=== PATIENT | male | born 1950 | race American Indian/Alaskan Native ===

== ENCOUNTER 2020-08-04 21:35 | Inpatient (IN) | payer MEDICARE ==
--- NOTE | 2020-08-04 21:47 | Emergency Department Report ---
ED Neuro Deficit HPI - General Stated Complaint: POSS STROKE Time Seen by Provider: 08/04/20 21:38 Source: family, EMS Mode of arrival: Carried (Peds) Limitations: Altered Mental Status - History of Present Illness Initial Comments: Chief complaint: Possible stroke HPI: This is a 70-year-old male with history of hypertension and pancreatic cancer who presents with right-sided paralysis and mute aphasia. Family members called 911 for wellness check. Family member had not heard from patient since last night. Police officers gained entry into the home. Patient was discovered on the floor. EMS arrived. Patient was discovered with severe aphasia and right- sided hemiparesis. No previous history of stroke according to family members report to EMS. Patient is unable to give history due to severe aphasia. Patient is mute. 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 -: unknown (Last known normal over 24 hours ago yesterday evening) Location: speech, right arm, right leg Presenting Symptoms: Present: Weak/Paralyzed One Side Place: home Severity: severe Improves With: none Worsens With: none On Anticoagulants: No Context: sudden onset, other (Yesterday) Associated Symptoms: other (Aphasia right-sided hemiparesis) Treatments Prior to Arrival: other (EMS transport) - Related Data Allergies/Adverse Reactions: Allergies Allergy/AdvReac Type Severity Reaction Status Date / Time Unable to Assess Allergy Unverified 08/04/20 21:50 ED Review of Systems ROS: Stated complaint: POSS STROKE Other details as noted in HPI Comment: Unobtainable due to pts medical conditions (Severe aphasia) ED Past Medical Hx - Past Medical History Previous Medical History?: Yes Hx Hypertension: Yes Additional medical history: Pancreatic cancer - Surgical History Additional Surgical History: Unable to obtain - Family History Family history: other (Unable to obtain) - Social History Smoking Status: Unknown if ever smoked Substance Use Type: Other (Unable to obtain) ED Neuro Physical Exam - General Limitations: Language Barrier, Altered Mental Status General appearance: alert, in no apparent distress, other (Patient will track with eyes. Purposeful movement with left upper extremity) Suspected Stroke: Yes - Head Head exam: Present: atraumatic, normocephalic - Eye Eye exam: Present: normal appearance - ENT ENT exam: Present: mucous membranes moist - Neck Neck exam: Present: normal inspection, full ROM - Respiratory Respiratory exam: Present: normal lung sounds bilaterally. Absent: respiratory distress, wheezes, rales, rhonchi - Cardiovascular Cardiovascular Exam: Present: regular rate, normal rhythm, normal heart sounds. Absent: systolic murmur, diastolic murmur, rubs, gallop - GI/Abdominal GI/Abdominal exam: Present: soft, normal bowel sounds. Absent: distended, tenderness, guarding, rebound - Rectal Rectal exam: Present: deferred - Extremities Exam Extremities exam: Present: pedal edema, other (No deformity) - Neurological Exam Neurological exam: Present: alert, other (Mute aphasia) - NIHSS Assessment Interval: Baseline 1a. Level of Consciousness: alert/keenly responsive 1b. LOC Questions: aphasic 1c. LOC Commands: performs no tasks correctly 2. Best Gaze: normal 3. Visual: no visual loss 4. Facial Palsy: partial paralysis 5b. Motor Arm Right: some gravity effort 5a. Motor Arm Left: no drift 6a. Motor Leg Left: no drift 6b. Motor Leg Right: no gravity effort 7. Limb Ataxia: absent 8. Sensory: severe/total sensory loss 9. Best Language: severe aphasia 10. Dysarthria: mute/anarrthric 11. Extinction/Inattention: profound inattention Total Score: 19 Stroke Severity: Moderate to Severe Stroke - Psychiatric Psychiatric exam: Present: normal affect, normal mood - Skin Skin exam: Present: warm, dry, intact, normal color. Absent: rash ED Course Vital Signs 08/04/20 08/04/20 08/04/20 21:40 21:45 22:01 Temperature 98.4 F Pulse Rate 83 78 86 Respiratory 21 21 20 Rate Blood Pressure 216/97 202/99 Blood Pressure 218/102 [Left] O2 Sat by Pulse 96 99 99 Oximetry 08/04/20 08/04/20 08/04/20 22:15 22:32 22:45 Temperature Pulse Rate 84 91 H Respiratory 17 17 21 Rate Blood Pressure 185/106 202/99 185/95 Blood Pressure [Left] O2 Sat by Pulse 99 98 Oximetry 08/04/20 22:46 Temperature Pulse Rate 76 Respiratory Rate Blood Pressure 185/95 Blood Pressure [Left] O2 Sat by Pulse Oximetry - Lab Data Result diagrams: 08/04/20 21:54 08/04/20 21:54 Lab Results 08/04/20 08/04/20 08/04/20 Range/Units 21:54 21:54 21:54 WBC 10.3 (4.5-11.0) K/mm3 RBC 4.39 (3.65-5.03) M/mm3 Hgb 12.7 (11.8-15.2) gm/dl Hct 37.1 (35.5-45.6) % MCV 85 (84-94) fl MCH 29 (28-32) pg MCHC 34 (32-34) % RDW 14.4 (13.2-15.2) % Plt Count 326 (140-440) K/mm3 Lymph % (Auto) 16.8 (13.4-35.0) % [place] % (Auto) 7.5 H (0.0-7.3) % Eos % (Auto) 0.1 (0.0-4.3) % Baso % (Auto) 0.5 (0.0-1.8) % Lymph # (Auto) 1.7 (1.2-5.4) K/mm3 [place] # (Auto) 0.8 (0.0-0.8) K/mm3 Eos # (Auto) 0.0 (0.0-0.4) K/mm3 Baso # (Auto) 0.1 (0.0-0.1) K/mm3 Seg Neutrophils % 75.1 H (40.0-70.0) % Seg Neutrophils # 7.7 (1.8-7.7) K/mm3 PT 14.5 (12.2-14.9) Sec. INR 1.15 H (0.87-1.13) APTT 26.1 (24.2-36.6) Sec. Sodium (137-145) mmol/L Potassium (3.6-5.0) mmol/L Chloride (98-107) mmol/L Carbon Dioxide (22-30) mmol/L Anion Gap mmol/L BUN (9-20) mg/dL Creatinine (0.8-1.3) mg/dL Estimated GFR ml/min BUN/Creatinine Ratio % Glucose (75-100) mg/dL Calcium (8.4-10.2) mg/dL Total Bilirubin (0.1-1.2) mg/dL AST (5-40) units/L ALT (7-56) units/L Alkaline Phosphatase (35-129) units/L Troponin T < 0.010 (0.00-0.029) ng/mL Total Protein (6.3-8.2) g/dL Albumin (3.9-5) g/dL Albumin/Globulin Ratio % Urine Color (Yellow) Urine Turbidity (Clear) Urine pH (5.0-7.0) Ur Specific [place] (1.003-1.030) Urine Protein (Negative) mg/dL Urine Glucose (UA) (Negative) mg/dL Urine Ketones (Negative) mg/dL Urine Blood (Negative) Urine Nitrite (Negative) Urine Bilirubin (Negative) Urine Urobilinogen (<2.0) mg/dL Ur Leukocyte Esterase (Negative) Urine WBC (Auto) (0.0-6.0) /HPF Urine RBC (Auto) (0.0-6.0) /HPF U Epithel Cells (Auto) (0-13.0) /HPF Urine Mucus /HPF Urine Opiates Screen Urine Methadone Screen Ur Barbiturates Screen Ur Phencyclidine Scrn Ur Amphetamines Screen U Benzodiazepines Scrn Urine Cocaine Screen U Marijuana (THC) Screen Drugs of Abuse Note Plasma/Serum Alcohol (0-0.07) % 08/04/20 08/04/20 08/04/20 Range/Units 21:54 21:54 21:59 WBC (4.5-11.0) K/mm3 RBC (3.65-5.03) M/mm3 Hgb (11.8-15.2) gm/dl Hct (35.5-45.6) % MCV (84-94) fl MCH (28-32) pg MCHC (32-34) % RDW (13.2-15.2) % Plt Count (140-440) K/mm3 Lymph % (Auto) (13.4-35.0) % [place] % (Auto) (0.0-7.3) % Eos % (Auto) (0.0-4.3) % Baso % (Auto) (0.0-1.8) % Lymph # (Auto) (1.2-5.4) K/mm3 [place] # (Auto) (0.0-0.8) K/mm3 Eos # (Auto) (0.0-0.4) K/mm3 Baso # (Auto) (0.0-0.1) K/mm3 Seg Neutrophils % (40.0-70.0) % Seg Neutrophils # (1.8-7.7) K/mm3 PT (12.2-14.9) Sec. INR (0.87-1.13) APTT (24.2-36.6) Sec. Sodium 140 (137-145) mmol/L Potassium 3.4 L (3.6-5.0) mmol/L Chloride 106.0 (98-107) mmol/L Carbon Dioxide 21 L (22-30) mmol/L Anion Gap 16 mmol/L BUN 11 (9-20) mg/dL Creatinine 0.7 L (0.8-1.3) mg/dL Estimated GFR > 60 ml/min BUN/Creatinine Ratio 16 % Glucose 123 H (75-100) mg/dL Calcium 9.2 (8.4-10.2) mg/dL Total Bilirubin 0.20 (0.1-1.2) mg/dL AST 15 (5-40) units/L ALT 11 (7-56) units/L Alkaline Phosphatase 95 (35-129) units/L Troponin T (0.00-0.029) ng/mL Total Protein 6.9 (6.3-8.2) g/dL Albumin 4.5 (3.9-5) g/dL Albumin/Globulin Ratio 1.9 % Urine Color Yellow (Yellow) Urine Turbidity Slightly-cloudy (Clear) Urine pH 7.0 (5.0-7.0) Ur Specific [place] 1.015 (1.003-1.030) Urine Protein <15 mg/dl (Negative) mg/dL Urine Glucose (UA) 150 (Negative) mg/dL Urine Ketones Tr (Negative) mg/dL Urine Blood Sm (Negative) Urine Nitrite Neg (Negative) Urine Bilirubin Neg (Negative) Urine Urobilinogen < 2.0 (<2.0) mg/dL Ur Leukocyte Esterase Neg (Negative) Urine WBC (Auto) 1.0 (0.0-6.0) /HPF Urine RBC (Auto) 3.0 (0.0-6.0) /HPF U Epithel Cells (Auto) < 1.0 (0-13.0) /HPF Urine Mucus Few /HPF Urine Opiates Screen Urine Methadone Screen Ur Barbiturates Screen Ur Phencyclidine Scrn Ur Amphetamines Screen U Benzodiazepines Scrn Urine Cocaine Screen U Marijuana (THC) Screen Drugs of Abuse Note Plasma/Serum Alcohol < 0.01 (0-0.07) % 08/04/20 Range/Units 21:59 WBC (4.5-11.0) K/mm3 RBC (3.65-5.03) M/mm3 Hgb (11.8-15.2) gm/dl Hct (35.5-45.6) % MCV (84-94) fl MCH (28-32) pg MCHC (32-34) % RDW (13.2-15.2) % Plt Count (140-440) K/mm3 Lymph % (Auto) (13.4-35.0) % [place] % (Auto) (0.0-7.3) % Eos % (Auto) (0.0-4.3) % Baso % (Auto) (0.0-1.8) % Lymph # (Auto) (1.2-5.4) K/mm3 [place] # (Auto) (0.0-0.8) K/mm3 Eos # (Auto) (0.0-0.4) K/mm3 Baso # (Auto) (0.0-0.1) K/mm3 Seg Neutrophils % (40.0-70.0) % Seg Neutrophils # (1.8-7.7) K/mm3 PT (12.2-14.9) Sec. INR (0.87-1.13) APTT (24.2-36.6) Sec. Sodium (137-145) mmol/L Potassium (3.6-5.0) mmol/L Chloride (98-107) mmol/L Carbon Dioxide (22-30) mmol/L Anion Gap mmol/L BUN (9-20) mg/dL Creatinine (0.8-1.3) mg/dL Estimated GFR ml/min BUN/Creatinine Ratio % Glucose (75-100) mg/dL Calcium (8.4-10.2) mg/dL Total Bilirubin (0.1-1.2) mg/dL AST (5-40) units/L ALT (7-56) units/L Alkaline Phosphatase (35-129) units/L Troponin T (0.00-0.029) ng/mL Total Protein (6.3-8.2) g/dL Albumin (3.9-5) g/dL Albumin/Globulin Ratio % Urine Color (Yellow) Urine Turbidity (Clear) Urine pH (5.0-7.0) Ur Specific [place] (1.003-1.030) Urine Protein (Negative) mg/dL Urine Glucose (UA) (Negative) mg/dL Urine Ketones (Negative) mg/dL Urine Blood (Negative) Urine Nitrite (Negative) Urine Bilirubin (Negative) Urine Urobilinogen (<2.0) mg/dL Ur Leukocyte Esterase (Negative) Urine WBC (Auto) (0.0-6.0) /HPF Urine RBC (Auto) (0.0-6.0) /HPF U Epithel Cells (Auto) (0-13.0) /HPF Urine Mucus /HPF Urine Opiates Screen Negative Urine Methadone Screen Negative Ur Barbiturates Screen Negative Ur Phencyclidine Scrn Negative Ur Amphetamines Screen Negative U Benzodiazepines Scrn Negative Urine Cocaine Screen Negative U Marijuana (THC) Screen Negative Drugs of Abuse Note Disclamer Plasma/Serum Alcohol (0-0.07) % - EKG Data -: EKG Interpreted by In EKG shows normal: sinus rhythm, axis Rate: normal Interpretation: LVH 08/04/20 21:48 EKG obtained 2140 EKG interpreted by ma Rate 85 bpm normal axis prolonged QTC no ST elevation nonspecific T wave pattern positive LVH nonischemic T wave pattern - Radiology Data [facility] FLA[facility]ITA MO[facility] Gender: Male Date of : 1950 Referring Provider: ALYSON AVILES Organization: [facility] Accession Number: [id number] Requested Date: August 04, 2020 21:40 Report Status: Final Requested Procedure: 1 Procedure Description: CT head/brain wo con Modality: CT Findings Reporting MD: Myles Parr Dictation Time: August 04, 2020 21:44 Criminal Investigator: Not available Circuit Design Engineer Date: CT HEAD WITHOUT CONTRAST INDICATION: stroke symptoms TECHNIQUE: All CT scans at this location are performed using CT dose reduction for ALARA by means of automated exposure control. COMPARISON: None available. FINDINGS: BRAIN: No hemorrhage or mass effect are seen. Moderate white matter microvascular changes are seen, particularly on the left. Focal probably old lacunar infarct is seen in the anterior limb of the right internal capsule. Decreased density is seen in the external capsule on the left stenting superiorly into the white matter of unclear chronicity. A small area of white matter and cortical hypodensity is noted in the left cerebrum in the posterior temporal region which appears represent a small cortical infarction of unclear age. This is not definitely chronic and no porencephaly is seen. Adjacent lateral ventricle is not dilated. No significant local mass effect is seen. An area of porencephaly in the anterior left temporal lobe appears old and probably is related to ischemia. ORBITS: Normal as visualized. SOFT TISSUES OF HEAD: Normal. CALVARIUM: Normal. VISUALIZED PARANASAL SINUSES AND MASTOID AIR CELLS: Rounded mucous retention cyst versus polyp is seen in the right maxillary sinus. Other sinuses are clear. No air-fluid levels are seen. ADDITIONAL FINDINGS: None. IMPRESSION: Moderate ischemic type changes are seen bilaterally but are worse on the left. This includes some age indeterminate areas both in the deep left brain and mildly in the left posterior temporal cortex which could include acute or subacute areas of infarction. No hemorrhage or mass effect are seen at MR may be useful. Signer Name: Myles Parr MD Signed: 08/04/2020 9:44 PM Workstation Name: [id number] Patient Name: FLAQUITA MOORE Gender: Male Date of : 1950 Referring Provider: ALYSON AVILES Organization: [facility] Accession Number: [id number] Requested Date: August 04, 2020 21:38 Report Status: Final Requested Procedure: 1 Procedure Description: XR chest 1V ap Modality: XR Findings Reporting MD: Arnoldo Coon Dictation Time: August 04, 2020 21:01 Criminal Investigator: Not available Circuit Design Engineer Date: CHEST 1 VIEW 08/04/2020 8:57 PM INDICATION / CLINICAL INFORMATION: Possible aspiration new stroke. COMPARISON: None available. FINDINGS: SUPPORT DEVICES: None. HEART / MEDIASTINUM: No significant abnormality. LUNGS / PLEURA: No significant pulmonary or pleural abnormality. No pneumothorax. ADDITIONAL FINDINGS: No significant additional findings. IMPRESSION: 1. No acute findings. Signer Name: Arnoldo Coon MD Signed: 08/04/2020 9:01 PM Workstation Name: [id number] - Medical Decision Making Acute CVA unknown last known well greater than 24 hours since family members were able to contact patient per phone. Police officers required to gain entry into home. CT head without contrast reveals subacute ischemic changes kiki aterally. I have reviewed labs obtained all within normal limits with exception of mild hypokalemia. Hypertensive emergency: 1 dose of IV labetalol decreased systolic blood pressure to 185 mm Hg. - Thrombolytic Inclusion/Exclusion Thrombolytic Exclusion Criteria: Onset of Symptoms Unknown, Symptom Onset > 3 Hours Critical Care Time: Yes Critical care time in (mins) excluding proc time.: 40 Critical care attestation.: If time is entered above; I have spent that time in minutes in the direct care of this critically ill patient, excluding procedure time. 40 minutes of critical care time excluding procedures were used in the care of the patient. I listen to EMS report prior to arrival in order to determine if patient required emergent teleneurologist. I came immediately to the bedside upon patient's arrival. I obtained history from EMS at the bedside. I discussed treatment plan with the nursing team members. I reviewed electronic record. I kept the family members informed. Patient required multiple interventions and reassessments. ED Disposition Clinical Impression: Acute CVA (cerebrovascular accident), Hypertensive emergency Disposition: DC-09 OP ADMIT IP TO THIS HOSP Is pt being admited?: Yes Does the pt Need Aspirin: No Condition: Fair Instructions: Hypertension (ED)
--- NOTE | 2020-08-04 22:06 | XRay Report ---
CHEST 1 VIEW 08/04/2020 8:57 PM INDICATION / CLINICAL INFORMATION: Possible aspiration new stroke. COMPARISON: None available. FINDINGS: SUPPORT DEVICES: None. HEART / MEDIASTINUM: No significant abnormality. LUNGS / PLEURA: No significant pulmonary or pleural abnormality. No pneumothorax. ADDITIONAL FINDINGS: No significant additional findings. IMPRESSION: 1. No acute findings. Signer Name: Arnoldo Coon MD Signed: 08/04/2020 10:01 PM Workstation Name: [id number]
[2020-08-04 22:11] LABS: Basophils # (Auto) 0.1 K/mm3 (0.0-0.1); Basophils % (Auto) 0.5 % (0.0-1.8); Eosinophils % (Auto) 0.1 % (0.0-4.3); Hematocrit 37.1 % (35.5-45.6); Hemoglobin 12.7 gm/dl (11.8-15.2); Lymphocytes # (Auto) 1.7 K/mm3 (1.2-5.4); Lymphocytes % (Auto) 16.8 % (13.4-35.0); Mean Corpuscular HGB Conc 34 % (32-34); Mean Corpuscular Volume 85 fl (84-94); Monocytes # (Auto) 0.8 K/mm3 (0.0-0.8); Monocytes % (Auto) 7.5 % (0.0-7.3); Platelet Count 326 K/mm3 (140-440); Red Blood Count 4.39 M/mm3 (3.65-5.03); Red Cell Distribution Width 14.4 % (13.2-15.2)
[2020-08-04 22:14] LABS: Bilirubin,Urine NEG (Negative); Blood,Urine SM (Negative); Color,Urine Yellow (Yellow); Mucus,Urine FEW /HPF; Protein,Urine <15 mg/dL mg/dL (Negative); Urobilinogen,Urine < 2.0 mg/dL (<2.0)
[2020-08-04 22:21] LABS: Amphetamine Screen,Urine Negative; Benzodiazepines Screen,Urine Negative; Cannabinoid Screen,Urine Negative; Cocaine Screen,Urine Negative; Methadone Screen,Urine Negative; Opiate Screen,Urine Negative
[2020-08-04 22:23] LABS: INR 1.15 (0.87-1.13); Partial Thromboplastin Time 26.1 Sec. (24.2-36.6)
[2020-08-04 22:26] LABS: Alanine Aminotransferase 11 units/L (7-56); Albumin 4.5 g/dL (3.9-5); Blood Urea Nitrogen 11 mg/dL (9-20); Calcium 9.2 mg/dL (8.4-10.2); Hemolysis Index 1
[2020-08-04 22:30] LABS: BUN/Creatinine Ratio 16
[2020-08-04] MEDS ORDERED: ASPIRIN 600 MG RECT SUPP PR ONE (22:34)
--- NOTE | 2020-08-04 22:48 | Cat Scan Report ---
CT HEAD WITHOUT CONTRAST INDICATION: stroke symptoms TECHNIQUE: All CT scans at this location are performed using CT dose reduction for ALARA by means of automated exposure control. COMPARISON: None available. FINDINGS: BRAIN: No hemorrhage or mass effect are seen. Moderate white matter microvascular changes are seen, p articularly on the left. Focal probably old lacunar infarct is seen in the anterior limb of the right internal capsule. Decreased density is seen in the external capsule on the left stenting superiorly into the white matter of unclear chronicity. A small area of white matter and cortical hypodensity is noted in the left cerebrum in the posterior temporal region which appears represent a small cortical infarction of unclear age. This is not definitely chronic and no porencephaly is seen. Adjacent late ral ventricle is not dilated. No significant local mass effect is seen. An area of porencephaly in th e anterior left temporal lobe appears old and probably is related to ischemia. ORBITS: Normal as visualized. SOFT TISSUES OF HEAD: Normal. CALVARIUM: Normal. VISUALIZED PARANASAL SINUSES AND MASTOID AIR CELLS: Rounded mucous retention cyst versus polyp is see n in the right maxillary sinus. Other sinuses are clear. No air-fluid levels are seen. ADDITIONAL FINDINGS: None. IMPRESSION: Moderate ischemic type changes are seen bilaterally but are worse on the left. This inclu adrien some age indeterminate areas both in the deep left brain and mildly in the left posterior tempora l cortex which could include acute or subacute areas of infarction. No hemorrhage or mass effect are seen at MR may be useful. Signer Name: Myles Parr MD Signed: 08/04/2020 10:44 PM Workstation Name: [id number]
[2020-08-04] MEDS ORDERED: ALBUTEROL 2.5 MG/3 ML NEBU IH PRN (23:45)
[2020-08-04] MEDS ORDERED: ONDANSETRON 4 MG/2 ML INJ IV PRN (23:45)
--- NOTE | 2020-08-04 23:54 | History and Physical Report ---
History of Present Illness Date of examination: 08/04/20 Date of admission: 08/04/20 23:17 Chief complaint: Stroke Aphasia History of present illness: 70-year-old male with past medical history of hypertension and pancreatic cancer who presents with right-sided paralysis and mute aphasia. Family members called 911 for wellness check. Family member had not heard from patient since last night. Police officers gained entry into the home. Patient was discovered on the floor. EMS arrived. Patient was discovered with severe aphasia and right-sided hemiparesis. No previous history of stroke according to family members report to EMS. Patient is unable to give history due to severe aphasia. Patient is mute. Consulting Intern reports normal blood glucos In the emergency room CT scan of the head showed moderate ischemic type changes are seen bilaterally better worse on the left these include some age indeterminate areas in the deep left brain and mildly on the left posterior temporal cortex which could include acute or subacute areas of infarction. No hemorrhage or mass-effect are seen at MR may be useful Past History Past Medical History: hypertension, other (Pancreatic cancer) Medications and Allergies Allergies Allergy/AdvReac Type Severity Reaction Status Date / Time Unable to Assess Allergy Unverified 08/04/20 21:50 Review of Systems Neurological: paralysis, weakness, aphasia Exam - Constitutional Vitals: Temp Pulse Resp BP Pulse Ox 98.4 F 80 20 186/89 99 08/04/20 21:40 08/04/20 23:31 08/04/20 23:31 08/04/20 23:31 08/04/20 23:31 General appearance: Present: no acute distress, well-nourished - EENT Eyes: Present: PERRL ENT: hearing intact, clear oral mucosa - Neck Neck: Present: supple, normal ROM - Respiratory Respiratory effort: normal Respiratory: bilateral: CTA - Cardiovascular Heart Sounds: Present: S1 & S2. Absent: rub, click - Extremities Extremities: pulses symmetrical, No edema Peripheral Pulses: within normal limits - Abdominal General gastrointestinal: Present: soft, non-tender, non-distended, normal bowel sounds Male genitourinary: Present: normal - Integumentary Integumentary: Present: clear, warm, dry - Musculoskeletal Musculoskeletal: gait normal, strength equal bilaterally - Neurologic Neurologic: CNII-XII intact, other (Patient is alert but patient has aphasia and right-sided paralysis) HEART Score - HEART Score Troponin: Troponin T < 0.010 ng/mL (0.00-0.029) 08/04/20 21:54 Results - Labs CBC & Chem 7: 08/04/20 21:54 08/04/20 21:54 Labs: Laboratory Last Values WBC 10.3 K/mm3 (4.5-11.0) 08/04/20 21:54 RBC 4.39 M/mm3 (3.65-5.03) 08/04/20 21:54 Hgb 12.7 gm/dl (11.8-15.2) 08/04/20 21:54 Hct 37.1 % (35.5-45.6) 08/04/20 21:54 MCV 85 fl (84-94) 08/04/20 21:54 MCH 29 pg (28-32) 08/04/20 21:54 MCHC 34 % (32-34) 08/04/20 21:54 RDW 14.4 % (13.2-15.2) 08/04/20 21:54 Plt Count 326 K/mm3 (140-440) 08/04/20 21:54 Lymph % (Auto) 16.8 % (13.4-35.0) 08/04/20 21:54 [place] % (Auto) 7.5 % (0.0-7.3) H 08/04/20 21:54 Eos % (Auto) 0.1 % (0.0-4.3) 08/04/20 21:54 Baso % (Auto) 0.5 % (0.0-1.8) 08/04/20 21:54 Lymph # (Auto) 1.7 K/mm3 (1.2-5.4) 08/04/20 21:54 [place] # (Auto) 0.8 K/mm3 (0.0-0.8) 08/04/20 21:54 Eos # (Auto) 0.0 K/mm3 (0.0-0.4) 08/04/20 21:54 Baso # (Auto) 0.1 K/mm3 (0.0-0.1) 08/04/20 21:54 Seg Neutrophils % 75.1 % (40.0-70.0) H 08/04/20 21:54 Seg Neutrophils # 7.7 K/mm3 (1.8-7.7) 08/04/20 21:54 PT 14.5 Sec. (12.2-14.9) 08/04/20 21:54 INR 1.15 (0.87-1.13) H 08/04/20 21:54 APTT 26.1 Sec. (24.2-36.6) 08/04/20 21:54 Sodium 140 mmol/L (137-145) 08/04/20 21:54 Potassium 3.4 mmol/L (3.6-5.0) L 08/04/20 21:54 Chloride 106.0 mmol/L (98-107) 08/04/20 21:54 Carbon Dioxide 21 mmol/L (22-30) L 08/04/20 21:54 Anion Gap 16 mmol/L 08/04/20 21:54 BUN 11 mg/dL (9-20) 08/04/20 21:54 Creatinine 0.7 mg/dL (0.8-1.3) L 08/04/20 21:54 Estimated GFR > 60 ml/min 08/04/20 21:54 BUN/Creatinine Ratio 16 % 08/04/20 21:54 Glucose 123 mg/dL (75-100) H 08/04/20 21:54 Calcium 9.2 mg/dL (8.4-10.2) 08/04/20 21:54 Total Bilirubin 0.20 mg/dL (0.1-1.2) 08/04/20 21:54 AST 15 units/L (5-40) 08/04/20 21:54 ALT 11 units/L (7-56) 08/04/20 21:54 Alkaline Phosphatase 95 units/L (35-129) 08/04/20 21:54 Troponin T < 0.010 ng/mL (0.00-0.029) 08/04/20 21:54 Total Protein 6.9 g/dL (6.3-8.2) 08/04/20 21:54 Albumin 4.5 g/dL (3.9-5) 08/04/20 21:54 Albumin/Globulin Ratio 1.9 % 08/04/20 21:54 Urine Color Yellow (Yellow) 08/04/20 21:59 Urine Turbidity Slightly-cloudy (Clear) 08/04/20 21:59 Urine pH 7.0 (5.0-7.0) 08/04/20 21:59 Ur Specific [place] 1.015 (1.003-1.030) 08/04/20 21:59 Urine Protein <15 mg/dl mg/dL (Negative) 08/04/20 21:59 Urine Glucose (UA) 150 mg/dL (Negative) 08/04/20 21:59 Urine Ketones Tr mg/dL (Negative) 08/04/20 21:59 Urine Blood Sm (Negative) 08/04/20 21:59 Urine Nitrite Neg (Negative) 08/04/20 21:59 Urine Bilirubin Neg (Negative) 08/04/20 21:59 Urine Urobilinogen < 2.0 mg/dL (<2.0) 08/04/20 21:59 Ur Leukocyte Esterase Neg (Negative) 08/04/20 21:59 Urine WBC (Auto) 1.0 /HPF (0.0-6.0) 08/04/20 21:59 Urine RBC (Auto) 3.0 /HPF (0.0-6.0) 08/04/20 21:59 U Epithel Cells (Auto) < 1.0 /HPF (0-13.0) 08/04/20 21:59 Urine Mucus Few /HPF 08/04/20 21:59 Urine Opiates Screen Negative 08/04/20 21:59 Urine Methadone Screen Negative 08/04/20 21:59 Ur Barbiturates Screen Negative 08/04/20 21:59 Ur Phencyclidine Scrn Negative 08/04/20 21:59 Ur Amphetamines Screen Negative 08/04/20 21:59 U Benzodiazepines Scrn Negative 08/04/20 21:59 Urine Cocaine Screen Negative 08/04/20 21:59 U Marijuana (THC) Screen Negative 08/04/20 21:59 Drugs of Abuse Note Disclamer 08/04/20 21:59 Plasma/Serum Alcohol < 0.01 % (0-0.07) 08/04/20 21:54 - Imaging and Cardiology Chest x-ray: report reviewed CT Scan - head: report reviewed Assessment and Plan VTE prophylaxis?: Chemical Plan of care discussed with patient/family: Yes - Patient Problems (1) Acute CVA (cerebrovascular accident) Current Visit: Yes Status: Acute Plan to address problem: Admit the patient to the medical telemetry. Put the patient on CVA pathway. Aspirin 325 mg p.o. daily. Lipitor 40 mg p.o. daily. MRI of the brain with and without contrast. MRI of the brain and neck. Echocardiogram. PT OT and speech evaluation. Neurology consult (2) Hypertensive emergency Current Visit: Yes Status: Acute Plan to address problem: Hydralazine 10 mg IV every 6 hours as needed. Labetalol 20 mg IV x1 dose. We will monitor the blood pressure closely (3) Pancreatic cancer Current Visit: Yes Status: Acute Plan to address problem: Stable. Patient will follow up with oncology as outpatient (4) DVT prophylaxis Current Visit: Yes Status: Acute Plan to address problem: SCD for DVT prophylaxis. Pepcid 20 mg p.o. twice daily for GI prophylaxis. Patient is a full code
[2020-08-05] MEDS: hydrALAZINE 20 MG/1 ML INJ IV PRN ×2 (00:09→17:21)
[2020-08-05] MEDS: IPRATROPIUM/ALBUTEROL SULFATE 3 ML AMPUL.NEB IH SCH ×4 (03:36→19:56)
[2020-08-05] MEDS: D5W/0.9% NACL 1,000 ML IV SCH (04:10)
[2020-08-05] MEDS ORDERED: HEPARIN 5,000 UNIT/1 ML VIAL SUB-Q SCH (06:00)
[2020-08-05 06:22] LABS: Basophils % (Auto) 0.4 % (0.0-1.8); Eosinophils % (Auto) 0.3 % (0.0-4.3); Hematocrit 38.1 % (35.5-45.6); Hemoglobin 12.3 gm/dl (11.8-15.2); Lymphocytes # (Auto) 1.8 K/mm3 (1.2-5.4); Lymphocytes % (Auto) 18.4 % (13.4-35.0); Mean Corpuscular HGB Conc 32 % (32-34); Mean Corpuscular Volume 84 fl (84-94); Monocytes # (Auto) 0.7 K/mm3 (0.0-0.8); Monocytes % (Auto) 7.4 % (0.0-7.3); Platelet Count 338 K/mm3 (140-440); Red Blood Count 4.52 M/mm3 (3.65-5.03); Red Cell Distribution Width 14.1 % (13.2-15.2)
[2020-08-05 06:39] LABS: Blood Urea Nitrogen 12 mg/dL (9-20); Calcium 9.1 mg/dL (8.4-10.2); Chol/HDL Ratio 5.38 %; HDL Cholesterol 47 mg/dL (40-59); Hemolysis Index 1; LDL Cholesterol,Direct 190 mg/dL (50-130)
[2020-08-05 06:41] LABS: BUN/Creatinine Ratio 17
[2020-08-05] MEDS ORDERED: ASPIRIN 325 MG TAB PO SCH (10:00)
--- NOTE | 2020-08-05 10:42 | Electrocardiograph Report ---
[facility] Test Date: 2020-08-04 Test Time: 21:41:30 Pat Name: FLAQUITA MOORE Department: Room: A484 1 Gender: M Community Health Director: THADDEUS : 1950 Requested By: ALYSON AVILES Order Number: [id number] Reading MD: Noe Storm Measurements Intervals Arnold Rate: 85 P: 75 MA: 184 QRS: 55 QRSD: 89 T: 56 QT: 456 QTc: 522 Interpretive Statements Sinus rhythm Paired ectopic premature complexes Consider left ventricular hypertrophy Prolonged QT interval No previous ECG available for comparison Electronically Signed On 08-05-2020 10:42:17 EDT by Noe Storm
--- NOTE | 2020-08-05 11:08 | Progress Note ---
Assessment and Plan Assessment and plan: #Acute CVA Aspirin 325mg daily Stat[place] Echocardiogram ordered MRI brain ordered Will get CTA head and neck Neurology consulted PT/OT Speech eval #Hypertension Given CVA, will maintain permissive HTN for now Usee BP medications only for SBP>220 or DBP >110 #Pancreatic cancer Stable. Patient will follow up with oncology as outpatient #DVT ppx SCD for DVT prophylaxis. Pepcid 20 mg p.o. twice daily for GI prophylaxis. Patient is a full code History Interval history: 70-year-old male with past medical history of hypertension and pancreatic cancer who presents with right-sided paralysis and mute aphasia. Family members called 911 for wellness check. Family member had not heard from patient since last night. Police officers gained entry into the home. Patient was discovered on the floor. EMS arrived. Patient was discovered with severe aphasia and right-sided hemiparesis. No previous history of stroke according to family members report to EMS. Patient is unable to give history due to severe aphasia. Patient is mute. 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 No hemorrhage or mass-effect are seen at MR may be useful Hospital course 08/05. He has aphasia. Has right UE weakness. Neurology consulted. MRI brain cannot be performed as there is no family available. Will get a repeat CT head instead. Echocardiogram pending. US carotid doppler also ordered. Hospitalist Physical - Physical exam Narrative exam: VITAL SIGNS: Reviewed. GENERAL: Awake HEAD: No signs of head trauma. EYES: Pupils are equal. Extraocular motions intact. MOUTH: Oropharynx is normal. NECK: No adenopathy, no JVD. CHEST: Chest with diminished breath sounds bilaterally. No wheezes, rales, or rhonchi. CARDIAC: normal S1 and S2, without murmurs, gallops, or rubs. ABDOMEN: Soft, non tender and non distended. No rebound or guarding, and no masses palpated. Bowel Sounds normal. MUSCULOSKELETAL: No edema NEUROLOGIC EXAM: Alert but has aphasia. +RUE >RLE weakness. SKIN: No obvious lesions - Constitutional Vitals: Temp Pulse Resp BP Pulse Ox 97.7 F 87 18 128/78 94 08/05/20 08:59 08/05/20 08:59 08/05/20 08:59 08/05/20 08:59 08/05/20 08:59 HEART Score - HEART Score Troponin: Troponin T < 0.010 ng/mL (0.00-0.029) 08/04/20 21:54 Results - Labs CBC & Chem 7: 08/05/20 05:23 08/05/20 05:23 Labs: Laboratory Last Values WBC 10.0 K/mm3 (4.5-11.0) 08/05/20 05:23 RBC 4.52 M/mm3 (3.65-5.03) 08/05/20 05:23 Hgb 12.3 gm/dl (11.8-15.2) 08/05/20 05:23 Hct 38.1 % (35.5-45.6) 08/05/20 05:23 MCV 84 fl (84-94) 08/05/20 05:23 MCH 27 pg (28-32) L 08/05/20 05:23 MCHC 32 % (32-34) 08/05/20 05:23 RDW 14.1 % (13.2-15.2) 08/05/20 05:23 Plt Count 338 K/mm3 (140-440) 08/05/20 05:23 Lymph % (Auto) 18.4 % (13.4-35.0) 08/05/20 05:23 [place] % (Auto) 7.4 % (0.0-7.3) H 08/05/20 05:23 Eos % (Auto) 0.3 % (0.0-4.3) 08/05/20 05:23 Baso % (Auto) 0.4 % (0.0-1.8) 08/05/20 05:23 Lymph # (Auto) 1.8 K/mm3 (1.2-5.4) 08/05/20 05:23 [place] # (Auto) 0.7 K/mm3 (0.0-0.8) 08/05/20 05:23 Eos # (Auto) 0.0 K/mm3 (0.0-0.4) 08/05/20 05:23 Baso # (Auto) 0.0 K/mm3 (0.0-0.1) 08/05/20 05:23 Seg Neutrophils % 73.5 % (40.0-70.0) H 08/05/20 05:23 Seg Neutrophils # 7.4 K/mm3 (1.8-7.7) 08/05/20 05:23 PT 14.5 Sec. (12.2-14.9) 08/04/20 21:54 INR 1.15 (0.87-1.13) H 08/04/20 21:54 APTT 26.1 Sec. (24.2-36.6) 08/04/20 21:54 Sodium 141 mmol/L (137-145) 08/05/20 05:23 Potassium 3.1 mmol/L (3.6-5.0) L 08/05/20 05:23 Chloride 106.0 mmol/L (98-107) 08/05/20 05:23 Carbon Dioxide 22 mmol/L (22-30) 08/05/20 05:23 Anion Gap 16 mmol/L 08/05/20 05:23 BUN 12 mg/dL (9-20) 08/05/20 05:23 Creatinine 0.7 mg/dL (0.8-1.3) L 08/05/20 05:23 Estimated GFR > 60 ml/min 08/05/20 05:23 BUN/Creatinine Ratio 17 % 08/05/20 05:23 Glucose 121 mg/dL (75-100) H 08/05/20 05:23 Calcium 9.1 mg/dL (8.4-10.2) 08/05/20 05:23 Total Bilirubin 0.20 mg/dL (0.1-1.2) 08/04/20 21:54 AST 15 units/L (5-40) 08/04/20 21:54 ALT 11 units/L (7-56) 08/04/20 21:54 Alkaline Phosphatase 95 units/L (35-129) 08/04/20 21:54 Troponin T < 0.010 ng/mL (0.00-0.029) 08/04/20 21:54 Total Protein 6.9 g/dL (6.3-8.2) 08/04/20 21:54 Albumin 4.5 g/dL (3.9-5) 08/04/20 21:54 Albumin/Globulin Ratio 1.9 % 08/04/20 21:54 Triglycerides 102 mg/dL (2-149) 08/05/20 05:23 Cholesterol 253 mg/dL (50-199) H 08/05/20 05:23 LDL Cholesterol Direct 190 mg/dL (50-130) H 08/05/20 05:23 HDL Cholesterol 47 mg/dL (40-59) 08/05/20 05:23 Cholesterol/HDL Ratio 5.38 % 08/05/20 05:23 Urine Color Yellow (Yellow) 08/04/20 21:59 Urine Turbidity Slightly-cloudy (Clear) 08/04/20 21:59 Urine pH 7.0 (5.0-7.0) 08/04/20 21:59 Ur Specific [place] 1.015 (1.003-1.030) 08/04/20 21:59 Urine Protein <15 mg/dl mg/dL (Negative) 08/04/20 21:59 Urine Glucose (UA) 150 mg/dL (Negative) 08/04/20 21:59 Urine Ketones Tr mg/dL (Negative) 08/04/20 21:59 Urine Blood Sm (Negative) 08/04/20 21:59 Urine Nitrite Neg (Negative) 08/04/20 21:59 Urine Bilirubin Neg (Negative) 08/04/20 21:59 Urine Urobilinogen < 2.0 mg/dL (<2.0) 08/04/20 21:59 Ur Leukocyte Esterase Neg (Negative) 08/04/20 21:59 Urine WBC (Auto) 1.0 /HPF (0.0-6.0) 08/04/20 21:59 Urine RBC (Auto) 3.0 /HPF (0.0-6.0) 08/04/20 21:59 U Epithel Cells (Auto) < 1.0 /HPF (0-13.0) 08/04/20 21:59 Urine Mucus Few /HPF 08/04/20 21:59 Urine Opiates Screen Negative 08/04/20 21:59 Urine Methadone Screen Negative 08/04/20 21:59 Ur Barbiturates Screen Negative 08/04/20 21:59 Ur Phencyclidine Scrn Negative 08/04/20 21:59 Ur Amphetamines Screen Negative 08/04/20 21:59 U Benzodiazepines Scrn Negative 08/04/20 21:59 Urine Cocaine Screen Negative 08/04/20 21:59 U Marijuana (THC) Screen Negative 08/04/20 21:59 Drugs of Abuse Note Disclamer 08/04/20 21:59 Plasma/Serum Alcohol < 0.01 % (0-0.07) 08/04/20 21:54 Amaya/IV: Voiding Method Incontinent Active Medications - Current Medications Current Medications: Generic Name Dose Route Start Last Admin Trade Name Freq PRN Reason Stop Dose Admin Acetaminophen 650 mg 08/04/20 23:45 Acetaminophen 325 Mg Tab PO Q4H PRN Pain MILD(1-3)/Fever >100.5/SILVER Albuterol 2.5 mg 08/04/20 23:45 Albuterol 2.5 Mg/3 Ml Nebu IH Q4HRT PRN Shortness Of Breath Albuterol/Ipratropium 1 ampul 08/05/20 02:00 08/05/20 10:50 Ipratropium/Albuterol Sulfate 3 Ml Ampul.Neb IH Not Given Q6HRT JACOB Aspirin 325 mg 08/05/20 10:00 08/05/20 10:44 Aspirin 325 Mg Tab PO Not Given QDAY JACOB Atorvastatin Calcium 80 mg 08/05/20 22:00 Atorvastatin 40 Mg Tab PO QHS JACOB Famotidine 20 mg 08/05/20 10:00 Famotidine 20 Mg/2 Ml Inj IV BID JACOB Hydralazine HCl 10 mg 08/04/20 23:49 08/05/20 00:09 Hydralazine 20 Mg/1 Ml Inj IV 10 mg Q6H PRN Administration SBP > 220 or DBP >110 Dextrose/Sodium Chloride 1,000 mls @ 60 mls/hr 08/04/20 23:45 08/05/20 04:10 D5ns IV 75 mls/hr DIRECT JACOB Administration Ondansetron HCl 4 mg 08/04/20 23:45 Ondansetron 4 Mg/2 Ml Inj IV Q8H PRN Nausea And Vomiting Sodium Chloride 10 ml 08/05/20 10:00 08/05/20 10:45 Sodium Chloride 0.9% 10 Ml Flush Syringe IV Not Given BID JACOB Sodium Chloride 10 ml 08/04/20 23:45 Sodium Chloride 0.9% 10 Ml Flush Syringe IV PRN PRN LINE FLUSH
--- NOTE | 2020-08-05 11:19 | Cat Scan Report ---
CT HEAD WITHOUT CONTRAST INDICATION / CLINICAL INFORMATION: CVA. TECHNIQUE: All CT scans at this location are performed using CT dose reduction for ALARA by means of automated e xposure control. COMPARISON: Head CT 08/04/2020 FINDINGS: HEMORRHAGE: No evidence of intracranial hemorrhage or extra-axial fluid collection. EXTRA-AXIAL SPACES: There is focal dilatation of the left sylvian fissure and subarachnoid space in t he left middle cranial fossa secondary to remote brain injury. Cortical sulci and sylvian fissures ar e enlarged reflecting a degree of parenchymal volume loss which is within normal limits for the patie nt's age of 70 years. Basilar cisterns have an unremarkable appearance. VENTRICULAR SYSTEM: Mild, ex vacuo, dilatation of the temporal horn of the left lateral ventricle is observed. The third and lateral ventricles have an otherwise unremarkable appearance. CEREBRAL PARENCHYMA: Regions of decreased attenuation in the anterior and lateral aspect of the left temporal lobe and left insular and subinsular regions likely reflect the sequelae of remote left MCA infarction. An additional area of decreased brain parenchymal attenuation is observed along lateral a spect of the left parietal lobe where a more recent infarction may be present. Correlation with magne tic resonance imaging of the brain is suggested to better date this abnormality. There is evidence of remote small deep infarction in the right gangliocapsular region. Additionally noted is moderate per iventricular and deep white matter lucency compatible with microvascular ischemic change. MIDLINE SHIFT OR HERNIATION: There is no mass effect. CEREBELLUM / BRAINSTEM: Brainstem has an unremarkable appearance. Age related cerebellar atrophy is n oted. MIDLINE STRUCTURES:Pituitary gland has an unremarkable appearance. No abnormalities are seen in the p ineal region. INTRACRANIAL VESSELS:Calcified atherosclerotic plaque is present along the course of the cavernous se gments of both internal carotid arteries. ORBITS: visualized portions of the orbits have an unremarkable appearance. SOFT TISSUES of HEAD: No significant abnormality. CALVARIUM: Evaluation of bone windows reveals no abnormalities. PARANASAL SINUSES / MASTOID AIR CELLS: Paranasal sinuses are free from inflammatory mucosal disease. Mastoid air cells are normally pneumatized. IMPRESSION: 1. Findings are consistent with remote left MCA infarction involving left temporal lobe and insula an d subinsular regions. 2. An additional area of decreased brain parenchymal attenuation is seen along the lateral convexity of the left parietal lobe or a more recent left MCA infarction may be present. Correlation with magne tic resonance imaging is suggested to better date the suspected left parietal infarction. Signer Name: Amando Pressley MD Signed: 08/05/2020 11:14 AM Workstation Name: [id number]
[2020-08-05] MEDS: FAMOTIDINE 20 MG/2 ML INJ IV SCH ×2 (12:01→22:38)
[2020-08-05] MEDS ORDERED: SODIUM CHLORIDE 0.9% 500 ML 500 ML ONE (14:47)
[2020-08-05] MEDS: POTASSIUM CHLORIDE 10 MEQ 10 MEQ/100 ML BAG IV SCH ×3 (16:02→18:07)
[2020-08-05] MEDS: ASPIRIN 300 MG RECT SUPP PR SCH (22:37)
[2020-08-06] MEDS: IPRATROPIUM/ALBUTEROL SULFATE 3 ML AMPUL.NEB IH SCH ×4 (02:57→20:00)
[2020-08-06] MEDS: POTASSIUM CHLORIDE 10 MEQ 10 MEQ/100 ML BAG IV SCH ×4 (07:38→16:25)
--- NOTE | 2020-08-06 09:12 | Consultation ---
History of Present Illness Consult date: 08/06/20 Reason for Consult: aphasia History of present illness: Stroke Aphasia History of present illness: 70-year-old male with past medical history of hypertension and pancreatic cancer who presents with right-sided paralysis and mute aphasia. Family members called 911 for wellness check. Family member had not heard from patient since last night. Police officers gained entry into the home. Patient was found on the floor. Patient is unable to give history due to severe aphasia. Patient is mute. In the emergency room CT scan of the head showed moderate ischemic type changes in the deep left brain and mildly on the left posterior temporal cortex which could include acute or subacute areas of infarction. No hemorrhage or mass- effect are seen at MR may be useful Past History Past Medical History: hypertension, other (Pancreatic cancer) Medications and Allergies Allergies Allergy/AdvReac Type Severity Reaction Status Date / Time Unable to Assess Allergy Unverified 08/04/20 21:50 Review of Systems Neurological: paralysis, weakness, aphasia Past History Past Medical History: hypertension, other (Pancreatic cancer) Medications and Allergies Allergies Allergy/AdvReac Type Severity Reaction Status Date / Time No Known Allergies Allergy Verified 08/05/20 15:39 Active Meds: Active Medications Acetaminophen (Acetaminophen 325 Mg Tab) 650 mg PO Q4H PRN PRN Reason: Pain MILD(1-3)/Fever >100.5/SILVER Albuterol (Albuterol 2.5 Mg/3 Ml Nebu) 2.5 mg IH Q4HRT PRN PRN Reason: Shortness Of Breath Albuterol/Ipratropium (Ipratropium/Albuterol Sulfate 3 Ml Ampul.Neb) 1 ampul IH Q6HRT [facility] Last Admin: 08/06/20 02:57 Dose: 1 ampul Documented by: Aspirin (Aspirin 300 Mg Rect Supp) 300 mg GA QDAY [facility] Last Admin: 08/05/20 22:37 Dose: 300 mg Documented by: Atorvastatin Calcium (Atorvastatin 40 Mg Tab) 80 mg PO QHS [facility] Last Admin: 08/05/20 22:38 Dose: Not Given Documented by: Famotidine (Famotidine 20 Mg/2 Ml Inj) 20 mg IV BID [facility] Last Admin: 08/05/20 22:38 Dose: 20 mg Documented by: Hydralazine HCl (Hydralazine 20 Mg/1 Ml Inj) 10 mg IV Q6H PRN PRN Reason: SBP > 220 or DBP >110 Last Admin: 08/05/20 17:21 Dose: 10 mg Documented by: Dextrose/Sodium Chloride (D5ns) 1,000 mls @ 60 mls/hr IV DIRECT [facility] Last Admin: 08/05/20 04:10 Dose: 75 mls/hr Documented by: Ondansetron HCl (Ondansetron 4 Mg/2 Ml Inj) 4 mg IV Q8H PRN PRN Reason: Nausea And Vomiting Sodium Chloride (Sodium Chloride 0.9% 10 Ml Flush Syringe) 10 ml IV BID [facility] Last Admin: 08/05/20 22:43 Dose: 10 ml Documented by: Sodium Chloride (Sodium Chloride 0.9% 10 Ml Flush Syringe) 10 ml IV PRN PRN PRN Reason: LINE FLUSH Physical Examination - Vital Signs Vital Signs: Vital Signs Temp Pulse Resp BP Pulse Ox 98.4 F 83 21 218/102 96 08/04/20 21:40 08/04/20 21:40 08/04/20 21:40 08/04/20 21:40 08/04/20 21:40 - Constitutional General appearance: other (Alert follow simple command ) - EENT EENT: Present: PERRL, mucous membranes moist - Respiratory Respiratory: Present: lungs clear, rhonchi - Cardiovascular Cardiovascular: Present: regular rate, normal S1, normal S2 Extremities: Present: no peripheral edema bilatateraly - Gastrointestinal Gastrointestinal: Present: normoactive bowel sounds - Integumentary Integumentary: Present: normal - Neurologic Cranial nerve examination: PERRL, EOMI, other (facial droop right side , pt, is aphasic with no clear speech out put comprehension is limited .) Speech examination: global aphasia Sensorimotor examination: intact Detailed motor examination: other (right hemiplegia upper 1-2/5 right lower 4-/5 , sensory crossly intact , unable to do gait) Results - Laboratory Findings CBC and BMP: 08/05/20 05:23 08/05/20 05:23 Abnormal Lab Findings: Abnormal Labs 08/04/20 08/04/20 08/04/20 21:54 21:54 21:54 MCH [place] % (Auto) 7.5 H Seg Neutrophils % 75.1 H INR 1.15 H Potassium 3.4 L Carbon Dioxide 21 L Creatinine 0.7 L Glucose 123 H Cholesterol LDL Cholesterol Direct 08/05/20 08/05/20 05:23 05:23 MCH 27 L [place] % (Auto) 7.4 H Seg Neutrophils % 73.5 H INR Potassium 3.1 L Carbon Dioxide Creatinine 0.7 L Glucose 121 H Cholesterol 253 H LDL Cholesterol Direct 190 H Assessment and Plan Assessment and Plan VTE prophylaxis?: Chemical - Patient Problems # Acute CVA (cerebrovascular accident) - pt. is with new onset right side weakness and possibly global aphasia -Admit the patient to the medical telemetry. - Put the patient on CVA pathway. - Aspirin 325 mg p.o. daily. - Lipitor 40 mg p.o. daily. - MRI of the brain with and without contrast is remarkable for larg left MCA infarct with involvment of parietal and temporal region , no shift . - Echocardiogram. #55-60 EF no thrombus - PT OT and speech evaluation. - CTA brain and neck are pending -LDL#[id number] +++ swallow evaluation +++ Pt and speech therapy -Cardiac monitoring # Hypertensive emergency -Hydralazine 10 mg IV every 6 hours as needed. Labetalol 20 mg IV x1 dose. We will monitor the blood pressure closely # Pancreatic cancer -Stable. Patient will follow up with oncology as outpatient - Hypercoagulable state can not be excluded (4) DVT prophylaxis SCD for DVT prophylaxis. Pepcid 20 mg p.o. twice daily for GI prophylaxis. Patient is a full code will follow
[2020-08-06] MEDS: ASPIRIN 300 MG RECT SUPP PR SCH (09:40)
[2020-08-06] MEDS: FAMOTIDINE 20 MG/2 ML INJ IV SCH ×2 (09:40→23:04)
--- NOTE | 2020-08-06 10:05 | Magnetic Resonance Report ---
MRI BRAIN WITHOUT CONTRAST INDICATION / CLINICAL INFORMATION: CVA. TECHNIQUE: Multiplanar, multisequence MR images of the brain were obtained. COMPARISON: Head CT on 08/05/2020 FINDINGS: BRAIN / INTRACRANIAL CONTENTS: There is an acute infarct in the left MCA territory involving the left posterior temporal lobe and left frontoparietal low-density mid convexity cortex as well as the insu lar cortex. There is no associated hemorrhage or adverse mass effect. There is moderately advanced ch ronic small vessel ischemic change in the cerebral white matter. Overall brain parenchymal volume love ears normal for age. CRANIOCERVICAL JUNCTION: No significant abnormality. VASCULAR FLOW-VOIDS: No significant abnormality. ORBITS: No significant abnormality of visualized orbits. SINUSES / MASTOIDS: There is a mucous retention cyst in the right maxillary sinus. ADDITIONAL FINDINGS: None. IMPRESSION: 1. Left MCA territory infarct as detailed above. No associated hemorrhage or adverse mass effect. Signer Name: Dennis Marte MD Signed: 08/06/2020 10:00 AM Workstation Name: [id number]
--- NOTE | 2020-08-06 12:07 | Progress Note ---
Assessment and Plan Assessment and plan: #Acute CVA Aspirin 325mg daily Statins Echocardiogram ordered MRI brain ordered Will get CTA head and neck Neurology consulted PT/OT Speech eval #Hypertensive emergency Given CVA, will maintain permissive HTN for now Usee BP medications only for SBP>220 or DBP >110 #Pancreatic cancer Stable. Patient will follow up with oncology as outpatient #DVT ppx SCD for DVT prophylaxis. Pepcid 20 mg p.o. twice daily for GI prophylaxis. Patient is a full code History Interval history: 70-year-old male with past medical history of hypertension and pancreatic cancer who presents with right-sided paralysis and mute aphasia. Family members called 911 for wellness check. Family member had not heard from patient since last night. Police officers gained entry into the home. Patient was discovered on the floor. EMS arrived. Patient was discovered with severe aphasia and right-sided hemiparesis. No previous history of stroke according to family members report to EMS. Patient is unable to give history due to severe aphasia. Patient is mute. Dispute Specialist reports normal blood glucose In the emergency room CT scan of the head showed moderate ischemic type changes are seen bilaterally better worse on the left these include some age indeterminate areas in the deep left brain and mildly on the left posterior temporal cortex which could include acute or subacute areas of infarction. No hemorrhage or mass-effect are seen at MR may be useful Hospital course 08/05. He has aphasia. Has right UE weakness. Neurology consulted. MRI brain ca nnot be performed as there is no family available. Will get a repeat CT head instead. Echocardiogram pending. US carotid doppler also ordered. Hospitalist Physical - Constitutional Vitals: Temp Pulse Resp BP Pulse Ox 98.4 F 67 18 196/83 96 08/06/20 03:40 08/06/20 10:00 08/06/20 10:00 08/06/20 03:40 08/06/20 03:40 General appearance: Present: no acute distress, well-nourished HEART Score - HEART Score Troponin: Troponin T < 0.010 ng/mL (0.00-0.029) 08/04/20 21:54 Results - Labs CBC & Chem 7: 08/05/20 05:23 08/05/20 05:23 Labs: Laboratory Last Values WBC 10.0 K/mm3 (4.5-11.0) 08/05/20 05:23 RBC 4.52 M/mm3 (3.65-5.03) 08/05/20 05:23 Hgb 12.3 gm/dl (11.8-15.2) 08/05/20 05:23 Hct 38.1 % (35.5-45.6) 08/05/20 05:23 MCV 84 fl (84-94) 08/05/20 05:23 MCH 27 pg (28-32) L 08/05/20 05:23 MCHC 32 % (32-34) 08/05/20 05:23 RDW 14.1 % (13.2-15.2) 08/05/20 05:23 Plt Count 338 K/mm3 (140-440) 08/05/20 05:23 Lymph % (Auto) 18.4 % (13.4-35.0) 08/05/20 05:23 [place] % (Auto) 7.4 % (0.0-7.3) H 08/05/20 05:23 Eos % (Auto) 0.3 % (0.0-4.3) 08/05/20 05:23 Baso % (Auto) 0.4 % (0.0-1.8) 08/05/20 05:23 Lymph # (Auto) 1.8 K/mm3 (1.2-5.4) 08/05/20 05:23 [place] # (Auto) 0.7 K/mm3 (0.0-0.8) 08/05/20 05:23 Eos # (Auto) 0.0 K/mm3 (0.0-0.4) 08/05/20 05:23 Baso # (Auto) 0.0 K/mm3 (0.0-0.1) 08/05/20 05:23 Seg Neutrophils % 73.5 % (40.0-70.0) H 08/05/20 05:23 Seg Neutrophils # 7.4 K/mm3 (1.8-7.7) 08/05/20 05:23 PT 14.5 Sec. (12.2-14.9) 08/04/20 21:54 INR 1.15 (0.87-1.13) H 08/04/20 21:54 APTT 26.1 Sec. (24.2-36.6) 08/04/20 21:54 Sodium 141 mmol/L (137-145) 08/05/20 05:23 Potassium 3.1 mmol/L (3.6-5.0) L 08/05/20 05:23 Chloride 106.0 mmol/L (98-107) 08/05/20 05:23 Carbon Dioxide 22 mmol/L (22-30) 08/05/20 05:23 Anion Gap 16 mmol/L 08/05/20 05:23 BUN 12 mg/dL (9-20) 08/05/20 05:23 Creatinine 0.7 mg/dL (0.8-1.3) L 08/05/20 05:23 Estimated GFR > 60 ml/min 08/05/20 05:23 BUN/Creatinine Ratio 17 % 08/05/20 05:23 Glucose 121 mg/dL (75-100) H 08/05/20 05:23 Calcium 9.1 mg/dL (8.4-10.2) 08/05/20 05:23 Total Bilirubin 0.20 mg/dL (0.1-1.2) 08/04/20 21:54 AST 15 units/L (5-40) 08/04/20 21:54 ALT 11 units/L (7-56) 08/04/20 21:54 Alkaline Phosphatase 95 units/L (35-129) 08/04/20 21:54 Troponin T < 0.010 ng/mL (0.00-0.029) 08/04/20 21:54 Total Protein 6.9 g/dL (6.3-8.2) 08/04/20 21:54 Albumin 4.5 g/dL (3.9-5) 08/04/20 21:54 Albumin/Globulin Ratio 1.9 % 08/04/20 21:54 Triglycerides 102 mg/dL (2-149) 08/05/20 05:23 Cholesterol 253 mg/dL (50-199) H 08/05/20 05:23 LDL Cholesterol Direct 190 mg/dL (50-130) H 08/05/20 05:23 HDL Cholesterol 47 mg/dL (40-59) 08/05/20 05:23 Cholesterol/HDL Ratio 5.38 % 08/05/20 05:23 Urine Color Yellow (Yellow) 08/04/20 21:59 Urine Turbidity Slightly-cloudy (Clear) 08/04/20 21:59 Urine pH 7.0 (5.0-7.0) 08/04/20 21:59 Ur Specific [place] 1.015 (1.003-1.030) 08/04/20 21:59 Urine Protein <15 mg/dl mg/dL (Negative) 08/04/20 21:59 Urine Glucose (UA) 150 mg/dL (Negative) 08/04/20 21:59 Urine Ketones Tr mg/dL (Negative) 08/04/20 21:59 Urine Blood Sm (Negative) 08/04/20 21:59 Urine Nitrite Neg (Negative) 08/04/20 21:59 Urine Bilirubin Neg (Negative) 08/04/20 21:59 Urine Urobilinogen < 2.0 mg/dL (<2.0) 08/04/20 21:59 Ur Leukocyte Esterase Neg (Negative) 08/04/20 21:59 Urine WBC (Auto) 1.0 /HPF (0.0-6.0) 08/04/20 21:59 Urine RBC (Auto) 3.0 /HPF (0.0-6.0) 08/04/20 21:59 U Epithel Cells (Auto) < 1.0 /HPF (0-13.0) 08/04/20 21:59 Urine Mucus Few /HPF 08/04/20 21:59 Urine Opiates Screen Negative 08/04/20 21:59 Urine Methadone Screen Negative 08/04/20 21:59 Ur Barbiturates Screen Negative 08/04/20 21:59 Ur Phencyclidine Scrn Negative 08/04/20 21:59 Ur Amphetamines Screen Negative 08/04/20 21:59 U Benzodiazepines Scrn Negative 08/04/20 21:59 Urine Cocaine Screen Negative 08/04/20 21:59 U Marijuana (THC) Screen Negative 08/04/20 21:59 Drugs of Abuse Note Disclamer 08/04/20 21:59 Plasma/Serum Alcohol < 0.01 % (0-0.07) 08/04/20 21:54 Amaya/IV: Voiding Method Incontinent Active Medications - Current Medications Current Medications: Generic Name Dose Route Start Last Admin Trade Name Freq PRN Reason Stop Dose Admin Acetaminophen 650 mg 08/04/20 23:45 Acetaminophen 325 Mg Tab PO Q4H PRN Pain MILD(1-3)/Fever >100.5/SILVER Albuterol 2.5 mg 08/04/20 23:45 Albuterol 2.5 Mg/3 Ml Nebu IH Q4HRT PRN Shortness Of Breath Albuterol/Ipratropium 1 ampul 08/05/20 02:00 08/06/20 11:21 Ipratropium/Albuterol Sulfate 3 Ml Ampul.Neb IH Not Given Q6HRT JACOB Aspirin 300 mg 08/05/20 22:00 08/06/20 09:40 Aspirin 300 Mg Rect Supp [place] 300 mg QDAY JACOB Administration Atorvastatin Calcium 80 mg 08/05/20 22:00 08/05/20 22:38 Atorvastatin 40 Mg Tab PO Not Given QHS JACOB Famotidine 20 mg 08/05/20 10:00 08/06/20 09:40 Famotidine 20 Mg/2 Ml Inj IV 20 mg BID JACOB Administration Hydralazine HCl 10 mg 08/04/20 23:49 08/05/20 17:21 Hydralazine 20 Mg/1 Ml Inj IV 10 mg Q6H PRN Administration SBP > 220 or DBP >110 Dextrose/Sodium Chloride 1,000 mls @ 60 mls/hr 08/04/20 23:45 08/05/20 04:10 D5ns IV 75 mls/hr DIRECT JACOB Administration Ondansetron HCl 4 mg 08/04/20 23:45 Ondansetron 4 Mg/2 Ml Inj IV Q8H PRN Nausea And Vomiting Sodium Chloride 10 ml 08/05/20 10:00 08/06/20 09:41 Sodium Chloride 0.9% 10 Ml Flush Syringe IV 10 ml BID JACOB Administration Sodium Chloride 10 ml 08/04/20 23:45 Sodium Chloride 0.9% 10 Ml Flush Syringe IV PRN PRN LINE FLUSH
--- NOTE | 2020-08-06 13:06 | Progress Note ---
Assessment and Plan Assessment and plan: #Acute CVA Aspirin 325mg daily Statins MRI brain shows a large left MCA stroke CTA head and neck pending Neurology evaluation appreciated Echocardiogram negative for thrombus Continue cardiac monitoring on telemetry Swallow evaluation - Recommends NPO for now. PT/OT pending #Hypertensive emergency Now past 48hours so will start PO medications via NG tube Monitor BP #Pancreatic cancer Stable. Patient will follow up with oncology as outpatient #Dysphagia Failed swallow evaluation Will order NG tube for feeding Nutrition consult #DVT ppx Lovenox History Interval history: 70-year-old male with past medical history of hypertension and pancreatic cancer who presents with right-sided paralysis and mute aphasia. Family members called 911 for wellness check. Family member had not heard from patient since last night. Police officers gained entry into the home. Patient was discovered on the floor. EMS arrived. Patient was discovered with severe aphasia and right-sided hemiparesis. No previous history of stroke according to family members report to EMS. Patient is unable to give history due to severe aphasia. Patient is mute. Heating And Ventilating Drafter reports normal blood glucose In the emergency room CT scan of the head showed moderate ischemic type changes are seen bilaterally better worse on the left these include some age indeterminate areas in the deep left brain and mildly on the left posterior temporal cortex which could include acute or subacute areas of infarction. No hemorrhage or mass-effect are seen at MR may be useful Hospital course 08/05. He has aphasia. Has right UE weakness. Neurology consulted. MRI brain cannot be performed as there is no family available. Will get a repeat CT head instead. Echocardiogram pending. US carotid doppler also ordered. 08/06. Still has aphasia. He is not able to follow commands us like yesterday. CT head shows possible subacute infarct. MRI brain and CTA head and neck could not be performed as he had no IV access. Plan to have imaging studies. He is on antiplatelets. Neurology recommendations appreciated. Hospitalist Physical - Constitutional Vitals: Temp Pulse Resp BP Pulse Ox 98.4 F 67 18 196/83 96 08/06/20 03:40 08/06/20 10:00 08/06/20 10:00 08/06/20 03:40 08/06/20 03:40 General appearance: Present: no acute distress, well-nourished HEART Score - HEART Score Troponin: Troponin T < 0.010 ng/mL (0.00-0.029) 08/04/20 21:54 Results - Labs CBC & Chem 7: 08/05/20 05:23 08/05/20 05:23 Labs: Laboratory Last Values WBC 10.0 K/mm3 (4.5-11.0) 08/05/20 05:23 RBC 4.52 M/mm3 (3.65-5.03) 08/05/20 05:23 Hgb 12.3 gm/dl (11.8-15.2) 08/05/20 05:23 Hct 38.1 % (35.5-45.6) 08/05/20 05:23 MCV 84 fl (84-94) 08/05/20 05:23 MCH 27 pg (28-32) L 08/05/20 05:23 MCHC 32 % (32-34) 08/05/20 05:23 RDW 14.1 % (13.2-15.2) 08/05/20 05:23 Plt Count 338 K/mm3 (140-440) 08/05/20 05:23 Lymph % (Auto) 18.4 % (13.4-35.0) 08/05/20 05:23 [place] % (Auto) 7.4 % (0.0-7.3) H 08/05/20 05:23 Eos % (Auto) 0.3 % (0.0-4.3) 08/05/20 05:23 Baso % (Auto) 0.4 % (0.0-1.8) 08/05/20 05:23 Lymph # (Auto) 1.8 K/mm3 (1.2-5.4) 08/05/20 05:23 [place] # (Auto) 0.7 K/mm3 (0.0-0.8) 08/05/20 05:23 Eos # (Auto) 0.0 K/mm3 (0.0-0.4) 08/05/20 05:23 Baso # (Auto) 0.0 K/mm3 (0.0-0.1) 08/05/20 05:23 Seg Neutrophils % 73.5 % (40.0-70.0) H 08/05/20 05:23 Seg Neutrophils # 7.4 K/mm3 (1.8-7.7) 08/05/20 05:23 PT 14.5 Sec. (12.2-14.9) 08/04/20 21:54 INR 1.15 (0.87-1.13) H 08/04/20 21:54 APTT 26.1 Sec. (24.2-36.6) 08/04/20 21:54 Sodium 141 mmol/L (137-145) 08/05/20 05:23 Potassium 3.1 mmol/L (3.6-5.0) L 08/05/20 05:23 Chloride 106.0 mmol/L (98-107) 08/05/20 05:23 Carbon Dioxide 22 mmol/L (22-30) 08/05/20 05:23 Anion Gap 16 mmol/L 08/05/20 05:23 BUN 12 mg/dL (9-20) 08/05/20 05:23 Creatinine 0.7 mg/dL (0.8-1.3) L 08/05/20 05:23 Estimated GFR > 60 ml/min 08/05/20 05:23 BUN/Creatinine Ratio 17 % 08/05/20 05:23 Glucose 121 mg/dL (75-100) H 08/05/20 05:23 Calcium 9.1 mg/dL (8.4-10.2) 08/05/20 05:23 Total Bilirubin 0.20 mg/dL (0.1-1.2) 08/04/20 21:54 AST 15 units/L (5-40) 08/04/20 21:54 ALT 11 units/L (7-56) 08/04/20 21:54 Alkaline Phosphatase 95 units/L (35-129) 08/04/20 21:54 Troponin T < 0.010 ng/mL (0.00-0.029) 08/04/20 21:54 Total Protein 6.9 g/dL (6.3-8.2) 08/04/20 21:54 Albumin 4.5 g/dL (3.9-5) 08/04/20 21:54 Albumin/Globulin Ratio 1.9 % 08/04/20 21:54 Triglycerides 102 mg/dL (2-149) 08/05/20 05:23 Cholesterol 253 mg/dL (50-199) H 08/05/20 05:23 LDL Cholesterol Direct 190 mg/dL (50-130) H 08/05/20 05:23 HDL Cholesterol 47 mg/dL (40-59) 08/05/20 05:23 Cholesterol/HDL Ratio 5.38 % 08/05/20 05:23 Urine Color Yellow (Yellow) 08/04/20 21:59 Urine Turbidity Slightly-cloudy (Clear) 08/04/20 21:59 Urine pH 7.0 (5.0-7.0) 08/04/20 21:59 Ur Specific [place] 1.015 (1.003-1.030) 08/04/20 21:59 Urine Protein <15 mg/dl mg/dL (Negative) 08/04/20 21:59 Urine Glucose (UA) 150 mg/dL (Negative) 08/04/20 21:59 Urine Ketones Tr mg/dL (Negative) 08/04/20 21:59 Urine Blood Sm (Negative) 08/04/20 21:59 Urine Nitrite Neg (Negative) 08/04/20 21:59 Urine Bilirubin Neg (Negative) 08/04/20 21:59 Urine Urobilinogen < 2.0 mg/dL (<2.0) 08/04/20 21:59 Ur Leukocyte Esterase Neg (Negative) 08/04/20 21:59 Urine WBC (Auto) 1.0 /HPF (0.0-6.0) 08/04/20 21:59 Urine RBC (Auto) 3.0 /HPF (0.0-6.0) 08/04/20 21:59 U Epithel Cells (Auto) < 1.0 /HPF (0-13.0) 08/04/20 21:59 Urine Mucus Few /HPF 08/04/20 21:59 Urine Opiates Screen Negative 08/04/20 21:59 Urine Methadone Screen Negative 08/04/20 21:59 Ur Barbiturates Screen Negative 08/04/20 21:59 Ur Phencyclidine Scrn Negative 08/04/20 21:59 Ur Amphetamines Screen Negative 08/04/20 21:59 U Benzodiazepines Scrn Negative 08/04/20 21:59 Urine Cocaine Screen Negative 08/04/20 21:59 U Marijuana (THC) Screen Negative 08/04/20 21:59 Drugs of Abuse Note Disclamer 08/04/20 21:59 Plasma/Serum Alcohol < 0.01 % (0-0.07) 08/04/20 21:54 Amaya/IV: Voiding Method Incontinent Active Medications - Current Medications Current Medications: Generic Name Dose Route Start Last Admin Trade Name Freq PRN Reason Stop Dose Admin Acetaminophen 650 mg 08/04/20 23:45 Acetaminophen 325 Mg Tab PO Q4H PRN Pain MILD(1-3)/Fever >100.5/SILVER Albuterol 2.5 mg 08/04/20 23:45 Albuterol 2.5 Mg/3 Ml Nebu IH Q4HRT PRN Shortness Of Breath Albuterol/Ipratropium 1 ampul 08/05/20 02:00 08/06/20 11:21 Ipratropium/Albuterol Sulfate 3 Ml Ampul.Neb IH Not Given Q6HRT JACOB Aspirin 300 mg 08/05/20 22:00 08/06/20 09:40 Aspirin 300 Mg Rect Supp [place] 300 mg QDAY JACOB Administration Atorvastatin Calcium 80 mg 08/05/20 22:00 08/05/20 22:38 Atorvastatin 40 Mg Tab PO Not Given QHS JACOB Famotidine 20 mg 08/05/20 10:00 08/06/20 09:40 Famotidine 20 Mg/2 Ml Inj IV 20 mg BID JACOB Administration Hydralazine HCl 10 mg 08/04/20 23:49 08/05/20 17:21 Hydralazine 20 Mg/1 Ml Inj IV 10 mg Q6H PRN Administration SBP > 220 or DBP >110 Dextrose/Sodium Chloride 1,000 mls @ 60 mls/hr 08/04/20 23:45 08/05/20 04:10 D5ns IV 75 mls/hr DIRECT JACOB Administration Potassium Chloride 10 meq in 100 mls @ 100 mls/hr 08/06/20 14:00 Kcl 10meq/100ml IV 08/06/20 17:59 Q1H JACOB Ondansetron HCl 4 mg 08/04/20 23:45 Ondansetron 4 Mg/2 Ml Inj IV Q8H PRN Nausea And Vomiting Sodium Chloride 10 ml 08/05/20 10:00 08/06/20 09:41 Sodium Chloride 0.9% 10 Ml Flush Syringe IV 10 ml BID JACOB Administration Sodium Chloride 10 ml 08/04/20 23:45 Sodium Chloride 0.9% 10 Ml Flush Syringe IV PRN PRN LINE FLUSH
--- NOTE | 2020-08-06 14:01 | Cat Scan Report ---
CT angio neck INDICATION / CLINICAL INFORMATION: 70 years Male; MAIN. TECHNIQUE: Thin cut axial images obtained through the head during IV bolus contrast administration. S agittal, coronal, and 3 plane MIP reconstructions performed by the technologist. NASCET type criteria used evaluate stenoses. All CT scans at this location are performed using CT dose reduction for ALAR A by means of automated exposure control. COMPARISON: None available. FINDINGS: CAROTID ARTERIES: There is atherosclerotic calcification involving the proximal internal carotid lizzy joanne bilaterally with approximately 50% stenosis. There is mild plaque involving the distal most left cervical segment mild, less than 50% stenosis. VERTEBRAL ARTERIES: The motion and beam hardening degrade the image quality along the origins of the vertebral arteries. However, there is no clear CTA evidence of significant focal stenosis involving v ertebral arteries at. ARCH: The arch vessels are not fully included on this exam. There is note of partially visualized renetta rrant right subclavian artery. ADDITIONAL FINDINGS: Remainder of the surrounding soft tissues are grossly normal. IMPRESSION: There is atherosclerotic calcification involving proximal internal carotid arteries with approximatel y 50% stenosis by NASCET criteria bilaterally. Signer Name: Gil Coleman MD Signed: 08/06/2020 1:56 PM Workstation Name: [id number]
--- NOTE | 2020-08-06 14:07 | Cat Scan Report ---
CT angio head INDICATION / CLINICAL INFORMATION: 70 years Male; MAIN. TECHNIQUE: Thin cut axial images obtained through the head during IV bolus contrast administration. S agittal, coronal, and 3 plane MIP reconstructions performed by the technologist. NASCET type criteria used evaluate stenoses. Automated exposure control utilized for radiation reduction purposes. COMPARISON: None available. FINDINGS: INTERNAL CAROTID ARTERIES: There is extensive atherosclerotic calcification involving distal internal carotid arteries with moderate to marked segmental narrowing on the right, particularly involving th e anterior genu. There appears be mild to moderate segmental narrowing on the left. VERTEBROBASILAR SYSTEM: There is no significant focal stenosis involving the vertebral basilar system . CEREBRAL ARTERIES: There is occlusion of the proximal left ICA. There is some collateral of flow with in the more distal left MCA branches though the contrast opacification is decreased compared to the r ight. There is also edema along the left insular and. Ventricular regions compatible with evolving in farct. There is notable hypoplasia of the A1 segment of the right MATTHEW. There is diffuse irregularity of the remaining cerebral arteries with mild to moderate areas of narrowing which may reflect diffuse athero sclerotic disease. ANEURYSM: None identified. ADDITIONAL FINDINGS: Findings are indicative of hypoplasia the left transverse and sigmoid sinuses. IMPRESSION: There is occlusion of the proximal left MCA as detailed above. There is extensive atherosclerotic calcification involving distal internal carotid arteries with segm ental stenosis, greater on the right as detailed above. There is diffuse irregularity of the cerebral branches as described which may reflect diffuse atheros clerotic disease. Signer Name: Gil Coleman MD Signed: 08/06/2020 2:02 PM Workstation Name: [id number]
[2020-08-06] MEDS: amLODIPine 10 MG TAB PO SCH (14:41)
--- NOTE | 2020-08-06 14:58 | XRay Report ---
ABDOMEN SUPINE INDICATION / CLINICAL INFORMATION: post dobhoff placement. COMPARISON: None available. FINDINGS: Tip of the weighted NG tube is at the GE junction, not in the stomach. Signer Name: Calderon Quiñonez MD Signed: 08/06/2020 2:53 PM Workstation Name: [id number]
--- NOTE | 2020-08-06 17:36 | XRay Report ---
ABDOMEN 1 VIEW(S) INDICATION / CLINICAL INFORMATION: post dobhoff replacement. COMPARISON: None available. FINDINGS: TUBES / LINES: Feeding tube tip at the fundus of the stomach. BOWEL GAS PATTERN: No significant abnormality. ADDITIONAL FINDINGS: No significant additional findings. Signer Name: Joselo Jordan MD Signed: 08/06/2020 5:31 PM Workstation Name: [id number]
[2020-08-06] MEDS: ENOXAPARIN 40 MG/0.4 ML INJ SUB-Q SCH (23:04)
[2020-08-07] MEDS: IPRATROPIUM/ALBUTEROL SULFATE 3 ML AMPUL.NEB IH SCH ×4 (03:01→21:30)
[2020-08-07 06:21] LABS: Basophils # (Auto) 0.1 K/mm3 (0.0-0.1); Basophils % (Auto) 0.8 % (0.0-1.8); Eosinophils # (Auto) 0.1 K/mm3 (0.0-0.4); Eosinophils % (Auto) 0.6 % (0.0-4.3); Hematocrit 38.6 % (35.5-45.6); Hemoglobin 13.2 gm/dl (11.8-15.2); Lymphocytes # (Auto) 2.5 K/mm3 (1.2-5.4); Lymphocytes % (Auto) 25.5 % (13.4-35.0); Mean Corpuscular HGB Conc 34 % (32-34); Mean Corpuscular Volume 85 fl (84-94); Monocytes # (Auto) 0.9 K/mm3 (0.0-0.8); Monocytes % (Auto) 8.9 % (0.0-7.3); Platelet Count 291 K/mm3 (140-440); Red Blood Count 4.57 M/mm3 (3.65-5.03); Red Cell Distribution Width 14.6 % (13.2-15.2)
[2020-08-07 06:43] LABS: Alanine Aminotransferase 13 units/L (7-56); Albumin 3.9 g/dL (3.9-5); Blood Urea Nitrogen 11 mg/dL (9-20); Calcium 8.9 mg/dL (8.4-10.2); Hemolysis Index 9
[2020-08-07 06:45] LABS: BUN/Creatinine Ratio 18
[2020-08-07] MEDS: POTASSIUM CHLORIDE 10 MEQ 10 MEQ/100 ML BAG IV SCH ×4 (09:11→17:00)
[2020-08-07] MEDS ORDERED: SIMPLE SYRUP 15 ML FEEDTUBE PRN ×2 (09:18)
[2020-08-07] MEDS ORDERED: LIPASE 10,500/PROTEASE 25,000/AMYLASE 43,750 (UNITS) DR CAP FEEDTUBE PRN (09:18)
[2020-08-07] MEDS ORDERED: SODIUM BICARBONATE 325 MG TAB FEEDTUBE PRN (09:18)
[2020-08-07] MEDS: D5W/0.9% NACL 1,000 ML IV SCH (09:21)
[2020-08-07] MEDS: hydrALAZINE 20 MG/1 ML INJ IV PRN (09:23)
[2020-08-07] MEDS: FAMOTIDINE 20 MG/2 ML INJ IV SCH ×2 (09:23→21:10)
[2020-08-07] MEDS: ASPIRIN 300 MG RECT SUPP PR SCH (09:24)
--- NOTE | 2020-08-07 10:16 | Progress Note ---
Assessment and Plan Assessment and plan: #Acute CVA Aspirin 325mg daily Added plavix 75 mg daily Statins MRI brain shows a large left MCA stroke CTA head and neck shows occlusion of the left MCA. Neurology evaluation appreciated Echocardiogram negative for thrombus Continue cardiac monitoring on telemetry Swallow evaluation - Recommends NPO for now. PT/OT pending #Hypertensive emergency PO medications via NG tube Monitor BP #Pancreatic cancer Stable. Patient will follow up with oncology as outpatient #Dysphagia Failed swallow evaluation Will order NG tube for feeding Nutrition consult fro tube feeding #DVT ppx Lovenox History Interval history: 70-year-old male with past medical history of hypertension and pancreatic cancer who presents with right-sided paralysis and mute aphasia. Family members called 911 for wellness check. Family member had not heard from patient since last night. Police officers gained entry into the home. Patient was discovered on the floor. EMS arrived. Patient was discovered with severe aphasia and right-sided hemiparesis. No previous history of stroke according to family members report to EMS. Patient is unable to give history due to severe aphasia. Patient is mute. Private Banker reports normal blood glucose In the emergency room CT scan of the head showed moderate ischemic type changes are seen bilaterally better worse on the left these include some age indeterminate areas in the deep left brain and mildly on the left posterior temporal cortex which could include acute or subacute areas of infarction. No hemorrhage or mass-effect are seen at MR may be useful Hospital course 08/05. He has aphasia. Has right UE weakness. Neurology consulted. MRI brain cannot be performed as there is no family available. Will get a repeat CT head instead. Echocardiogram pending. US carotid doppler also ordered. 08/06. Still has aphasia. He is not able to follow commands like yesterday. CT head shows possible subacute infarct. MRI brain and CTA head and neck could not be performed as he had no IV access. Plan to have imaging studies. He is on antiplatelets. Neurology recommendations appreciated. 08/07. He still has aphasia. No able to follow commands. MRI brain showed CVA involving the left MCA. CTA of the head shows occlusion of the left MCA. CTA neck negative for significant stenosis of the carotid arteries. Neurology to reevaluate as discussed this AM. He is currently on aspirin and statins. Appreciate neurology recommendations. Patient had a swallow evaluation yesterday and failed. NG tube was placed for tube feeding or medications. Patient may need a feeding tube if not improving. Will discuss with GI. PT recommends acute rehab. Hospitalist Physical - Physical exam Narrative exam: VITAL SIGNS: Reviewed. GENERAL: Awake HEAD: No signs of head trauma. EYES: Pupils are equal. Extraocular motions intact. MOUTH: Oropharynx is normal. NECK: No adenopathy, no JVD. CHEST: Chest with diminished breath sounds bilaterally. No wheezes, rales, or rhonchi. CARDIAC: normal S1 and S2, without murmurs, gallops, or rubs. ABDOMEN: Soft, non tender and non distended. No rebound or guarding, and no masses palpated. Bowel Sounds normal. MUSCULOSKELETAL: No edema NEUROLOGIC EXAM: Alert but has aphasia. +RUE >RLE weakness. SKIN: No obvious lesions - Constitutional Vitals: Temp Pulse Resp BP Pulse Ox 98.6 F 77 16 169/102 98 08/07/20 07:50 08/07/20 09:23 08/07/20 08:00 08/07/20 07:50 08/07/20 07:50 HEART Score - HEART Score Troponin: Troponin T < 0.010 ng/mL (0.00-0.029) 08/04/20 21:54 Results - Labs CBC & Chem 7: 08/07/20 06:06 08/07/20 06:06 Labs: Laboratory Last Values WBC 9.7 K/mm3 (4.5-11.0) 08/07/20 06:06 RBC 4.57 M/mm3 (3.65-5.03) 08/07/20 06:06 Hgb 13.2 gm/dl (11.8-15.2) 08/07/20 06:06 Hct 38.6 % (35.5-45.6) 08/07/20 06:06 MCV 85 fl (84-94) 08/07/20 06:06 MCH 29 pg (28-32) 08/07/20 06:06 MCHC 34 % (32-34) 08/07/20 06:06 RDW 14.6 % (13.2-15.2) 08/07/20 06:06 Plt Count 291 K/mm3 (140-440) 08/07/20 06:06 Lymph % (Auto) 25.5 % (13.4-35.0) 08/07/20 06:06 Emmet % (Auto) 8.9 % (0.0-7.3) H 08/07/20 06:06 Eos % (Auto) 0.6 % (0.0-4.3) 08/07/20 06:06 Baso % (Auto) 0.8 % (0.0-1.8) 08/07/20 06:06 Lymph # (Auto) 2.5 K/mm3 (1.2-5.4) 08/07/20 06:06 Emmet # (Auto) 0.9 K/mm3 (0.0-0.8) H 08/07/20 06:06 Eos # (Auto) 0.1 K/mm3 (0.0-0.4) 08/07/20 06:06 Baso # (Auto) 0.1 K/mm3 (0.0-0.1) 08/07/20 06:06 Seg Neutrophils % 64.2 % (40.0-70.0) 08/07/20 06:06 Seg Neutrophils # 6.2 K/mm3 (1.8-7.7) 08/07/20 06:06 PT 14.5 Sec. (12.2-14.9) 08/04/20 21:54 INR 1.15 (0.87-1.13) H 08/04/20 21:54 APTT 26.1 Sec. (24.2-36.6) 08/04/20 21:54 Sodium 141 mmol/L (137-145) 08/07/20 06:06 Potassium 3.5 mmol/L (3.6-5.0) L 08/07/20 06:06 Chloride 107.0 mmol/L (98-107) 08/07/20 06:06 Carbon Dioxide 20 mmol/L (22-30) L 08/07/20 06:06 Anion Gap 18 mmol/L 08/07/20 06:06 BUN 11 mg/dL (9-20) 08/07/20 06:06 Creatinine 0.6 mg/dL (0.8-1.3) L 08/07/20 06:06 Estimated GFR > 60 ml/min 08/07/20 06:06 BUN/Creatinine Ratio 18 % 08/07/20 06:06 Glucose 93 mg/dL (75-100) 08/07/20 06:06 POC Glucose 96 mg/dL (70-105) 08/06/20 23:28 Calcium 8.9 mg/dL (8.4-10.2) 08/07/20 06:06 Total Bilirubin 0.40 mg/dL (0.1-1.2) 08/07/20 06:06 AST 19 units/L (5-40) 08/07/20 06:06 ALT 13 units/L (7-56) 08/07/20 06:06 Alkaline Phosphatase 91 units/L (35-129) 08/07/20 06:06 Troponin T < 0.010 ng/mL (0.00-0.029) 08/04/20 21:54 Total Protein 7.3 g/dL (6.3-8.2) 08/07/20 06:06 Albumin 3.9 g/dL (3.9-5) 08/07/20 06:06 Albumin/Globulin Ratio 1.1 % 08/07/20 06:06 Triglycerides 102 mg/dL (2-149) 08/05/20 05:23 Cholesterol 253 mg/dL (50-199) H 08/05/20 05:23 LDL Cholesterol Direct 190 mg/dL (50-130) H 08/05/20 05:23 HDL Cholesterol 47 mg/dL (40-59) 08/05/20 05:23 Cholesterol/HDL Ratio 5.38 % 08/05/20 05:23 Urine Color Yellow (Yellow) 08/04/20 21:59 Urine Turbidity Slightly-cloudy (Clear) 08/04/20 21:59 Urine pH 7.0 (5.0-7.0) 08/04/20 21:59 Ur Specific [place] 1.015 (1.003-1.030) 08/04/20 21:59 Urine Protein <15 mg/dl mg/dL (Negative) 08/04/20 21:59 Urine Glucose (UA) 150 mg/dL (Negative) 08/04/20 21:59 Urine Ketones Tr mg/dL (Negative) 08/04/20 21:59 Urine Blood Sm (Negative) 08/04/20 21:59 Urine Nitrite Neg (Negative) 08/04/20 21:59 Urine Bilirubin Neg (Negative) 08/04/20 21:59 Urine Urobilinogen < 2.0 mg/dL (<2.0) 08/04/20 21:59 Ur Leukocyte Esterase Neg (Negative) 08/04/20 21:59 Urine WBC (Auto) 1.0 /HPF (0.0-6.0) 08/04/20 21:59 Urine RBC (Auto) 3.0 /HPF (0.0-6.0) 08/04/20 21:59 U Epithel Cells (Auto) < 1.0 /HPF (0-13.0) 08/04/20 21:59 Urine Mucus Few /HPF 08/04/20 21:59 Urine Opiates Screen Negative 08/04/20 21:59 Urine Methadone Screen Negative 08/04/20 21:59 Ur Barbiturates Screen Negative 08/04/20 21:59 Ur Phencyclidine Scrn Negative 08/04/20 21:59 Ur Amphetamines Screen Negative 08/04/20 21:59 U Benzodiazepines Scrn Negative 08/04/20 21:59 Urine Cocaine Screen Negative 08/04/20 21:59 U Marijuana (THC) Screen Negative 08/04/20 21:59 Drugs of Abuse Note Disclamer 08/04/20 21:59 Plasma/Serum Alcohol < 0.01 % (0-0.07) 08/04/20 21:54 Amaya/IV: Voiding Method Incontinent Active Medications - Current Medications Current Medications: Generic Name Dose Route Start Last Admin Trade Name Freq PRN Reason Stop Dose Admin Acetaminophen 650 mg 08/04/20 23:45 Acetaminophen 325 Mg Tab PO Q4H PRN Pain MILD(1-3)/Fever >100.5/SILVER Albuterol 2.5 mg 08/04/20 23:45 Albuterol 2.5 Mg/3 Ml Nebu IH Q4HRT PRN Shortness Of Breath Albuterol/Ipratropium 1 ampul 08/05/20 02:00 08/07/20 09:28 Ipratropium/Albuterol Sulfate 3 Ml Ampul.Neb IH 1 ampul Q6HRT JACOB Administration Amlodipine Besylate 10 mg 08/06/20 14:00 08/06/20 14:41 Amlodipine 10 Mg Tab PO 10 mg QDAY JACOB Administration Lipase/Protease/Amylase 1 each 08/07/20 09:18 Lipase 10,500/Protease 25,000/Amylase 43,750 (Units) Dr Harrington FEEDTUBE PRN PRN For Clogged Feeding Tube Aspirin 300 mg 08/05/20 22:00 08/07/20 09:24 Aspirin 300 Mg Rect Supp DE 300 mg QDAY JACOB Administration Atorvastatin Calcium 80 mg 08/05/20 22:00 08/06/20 23:04 Atorvastatin 40 Mg Tab PO 80 mg QHS JACOB Administration Enoxaparin Sodium 40 mg 08/06/20 22:00 08/06/20 23:04 Enoxaparin 40 Mg/0.4 Ml Inj SUB-Q 40 mg QDAY@2200 JACOB Administration Protocol Famotidine 20 mg 08/05/20 10:00 08/07/20 09:23 Famotidine 20 Mg/2 Ml Inj IV 20 mg BID JACOB Administration Hydralazine HCl 10 mg 08/04/20 23:49 08/07/20 09:23 Hydralazine 20 Mg/1 Ml Inj IV 10 mg Q6H PRN Administration Hypertension Dextrose/Sodium Chloride 1,000 mls @ 60 mls/hr 08/04/20 23:45 08/07/20 09:21 D5ns IV 75 mls/hr DIRECT JACOB Administration Potassium Chloride 10 meq in 100 mls @ 100 mls/hr 08/07/20 09:00 08/07/20 0 9:11 Kcl 10meq/100ml IV 08/07/20 12:59 100 mls/hr Q1H JACOB Administration Ondansetron HCl 4 mg 08/04/20 23:45 Ondansetron 4 Mg/2 Ml Inj IV Q8H PRN Nausea And Vomiting Simple Syrup 15 ml 08/07/20 09:18 Simple Syrup 15 Ml FEEDTUBE PRN PRN Hypoglycemia Simple Syrup 30 ml 08/07/20 09:18 Simple Syrup 15 Ml FEEDTUBE PRN PRN Hypoglycemia Sodium Bicarbonate 325 mg 08/07/20 09:18 Sodium Bicarbonate 325 Mg Tab FEEDTUBE PRN PRN For Clogged Feeding Tube Sodium Chloride 10 ml 08/05/20 10:00 08/07/20 09:12 Sodium Chloride 0.9% 10 Ml Flush Syringe IV 10 ml BID JACOB Administration Sodium Chloride 10 ml 08/04/20 23:45 Sodium Chloride 0.9% 10 Ml Flush Syringe IV PRN PRN LINE FLUSH Nutrition/Malnutrition Assess - Dietary Evaluation Nutrition/Malnutrition Findings: Nutrition Notes Start: 08/07/20 09:03 Freq: Status: Active Protocol: Document 08/07/20 09:03 AL (Rec: 08/07/20 09:18 AL [id number]) Co-Sign 08/07/20 09:03 LP Nutrition Notes Need for Assessment generated from: MD Order Initial or Follow up Assessment Current Diagnosis Hypertension,Stroke Other Pertinent Diagnosis Aphasia, Pancreatic Cancer, R side paralysis Current Diet NPO Labs/Tests K 3.5 Cr 0.6 Pertinent Medications D5NS 75 ml/hr KCl at 100 ml/hr Height 5 ft 8 in Weight 69.3 kg Big Bar Body Weight (kg) 70.00 BMI 23.2 Weight Status Appropriate Subjective/Other Information MD Consult for write/manage TF . Pt has aphasia and per speech note, has delayed swallowing. Percent of energy/protein needs met: 0%/0% Burn Absent Trauma Absent Current % PO Negligible Minimum of two criteria No physical signs of malnutrition #1 Nutrition Diagnosis Inadequate oral intake Etiology Aphasia As Evidenced by Signs and Symptoms Pt NPO and had delayed swallowing, per speech eval. Is patient on ventilator? No Is Patient Ambulatory and/or Out of Bed Yes REE-(Bude-St. Jeor-ambulatory/OOB) [ 1842.750 [id number]] Calculation Used for Recommendations Bude-St Jeor Additional Notes Protein:70-84 g (1-1.2 g/kg) Fluid: 1 ml/kcal Nutrition Intervention Change Diet Order: TF Nutrition Support: Jevity 1.2 at 60 mL/hr Flush 100 mL q4h Kcal 1,728 Protein (gm) 80 Fluid (mL) 1,168 Goal #1 TF start Goal #2 Pt meets at least 75% of estimated energy/protein needs via TF Anticipated Discharge Needs: Jevity 1.2 at 60 ml/hr Flush 100 ml q4h Follow-Up By: 08/11/20 Additional Comments F/U fort TF start and tolerance.
[2020-08-07] MEDS: amLODIPine 10 MG TAB PO SCH (11:10)
--- NOTE | 2020-08-07 12:00 | XRay Report ---
ABDOMEN 1 VIEW(S) INDICATION / CLINICAL INFORMATION: ngt placement. COMPARISON: Yesterday FINDINGS: TUBES / LINES: The tip of the Dobbhoff tube is near the GE junction and should be advanced at least 1 0-15 cm into the duodenum. BOWEL GAS PATTERN: No significant abnormality. FREE AIR / EXTRALUMINAL GAS: None seen. ADDITIONAL FINDINGS: No significant additional findings. IMPRESSION: 1. DHT as above. Signer Name: Benjamin Guzman MD Signed: 08/07/2020 11:56 AM Workstation Name: [id number]
--- NOTE | 2020-08-07 12:20 | Progress Note ---
Assessment and Plan Assessment and Plan VTE prophylaxis?: Chemical - Patient Problems # Acute CVA (cerebrovascular accident) - pt. is with new onset right side weakness and possibly global aphasia -Admit the patient to the medical telemetry. - Put the patient on CVA pathway. - Aspirin 325 mg p.o. daily. - Lipitor 40 mg p.o. daily. - MRI of the brain with and without contrast is remarkable for larg left MCA infarct with involvment of parietal and temporal region , no shift . - Echocardiogram. #55-60 EF no thrombus - PT OT and speech evaluation. - CTA brain and neck are remarkable for astherosclerosis 50% intracranially -LDL#[id number] +++ swallow evaluation +++ Pt and speech therapy -Cardiac monitoring # Hypertensive emergency -Hydralazine 10 mg IV every 6 hours as needed. Labetalol 20 mg IV x1 dose. We will monitor the blood pressure closely # Pancreatic cancer -Stable. Patient will follow up with oncology as outpatient - Hypercoagulable state can not be excluded (4) DVT prophylaxis SCD for DVT prophylaxis. Pepcid 20 mg p.o. twice daily for GI prophylaxis. Patient is a full code over all prognosis is quarded will sign off Subjective Date of service: 08/07/20 Principal diagnosis: CVA Interval history: stable no speech out put with global aphasia and right side weakness Objective - Vital Sign Vital Signs - 12hr 08/07/20 08/07/20 08/07/20 02:00 03:22 07:50 Temperature 98.2 F 98.6 F Pulse Rate 73 77 Pulse Rate [ 73 Anterior Bilateral Throughout] Respiratory 18 18 Rate Respiratory 16 Rate [Anterior Bilateral Throughout] Blood Pressure 164/88 169/102 O2 Sat by Pulse 97 98 Oximetry 08/07/20 08/07/20 08/07/20 08:00 09:23 11:10 Temperature 98.0 F Pulse Rate 77 71 Pulse Rate [ 70 Anterior Bilateral Throughout] Respiratory 18 Rate Respiratory 16 Rate [Anterior Bilateral Throughout] Blood Pressure 163/78 O2 Sat by Pulse 98 Oximetry - General Apperance Constitutional: other (global aphasia) - EENT EENT: PERRL, mucous membranes moist - Respiratory Respiratory: lungs clear, rhonchi - Cardiovascular Cardiovascular: regular rate, normal S1, normal S2 Extremities: no peripheral edema bilat, no clubbing, cyanosis - Gastrointestinal Gastrointestinal: normoactive bowel sounds - Integumentary Integumentary: normal - Neurologic Cranial nerve examination: PERRL, EOMI, other (right facial droop) Speech examination: global aphasia Detailed motor examination: other (right side is 2/5 upper and lower ) - Laboratory Findings CBC and BMP: 08/07/20 06:06 08/07/20 06:06 Abnormal Lab Findings: Abnormal Labs 08/04/20 08/04/20 08/04/20 21:54 21:54 21:54 MCH [place] % (Auto) 7.5 H Mclean # (Auto) Seg Neutrophils % 75.1 H INR 1.15 H Potassium 3.4 L Carbon Dioxide 21 L Creatinine 0.7 L Glucose 123 H Cholesterol LDL Cholesterol Direct 08/05/20 08/05/20 08/07/20 05:23 05:23 06:06 MCH 27 L [place] % (Auto) 7.4 H 8.9 H Mclean # (Auto) 0.9 H Seg Neutrophils % 73.5 H INR Potassium 3.1 L Carbon Dioxide Creatinine 0.7 L Glucose 121 H Cholesterol 253 H LDL Cholesterol Direct 190 H 08/07/20 06:06 MCH [place] % (Auto) Mclean # (Auto) Seg Neutrophils % INR Potassium 3.5 L Carbon Dioxide 20 L Creatinine 0.6 L Glucose Cholesterol LDL Cholesterol Direct
--- NOTE | 2020-08-07 15:59 | XRay Report ---
XR abdomen 1V ap INDICATION: ngt placement. COMPARISON: Exam done earlier on 08/07/2020 FINDINGS: The tip of the feeding tube ejects over the gastroesophageal junction, similar to prior. Signer Name: Dennis Marte MD Signed: 08/07/2020 3:55 PM Workstation Name: [id number]
[2020-08-07] MEDS: ACETAMINOPHEN 325 MG TAB PO PRN (21:10)
[2020-08-07] MEDS: ENOXAPARIN 40 MG/0.4 ML INJ SUB-Q SCH (21:10)
[2020-08-08] MEDS: IPRATROPIUM/ALBUTEROL SULFATE 3 ML AMPUL.NEB IH SCH ×4 (03:42→20:48)
[2020-08-08 06:11] LABS: Basophils % (Auto) 0.6 % (0.0-1.8); Eosinophils # (Auto) 0.1 K/mm3 (0.0-0.4); Eosinophils % (Auto) 1.1 % (0.0-4.3); Hematocrit 38.2 % (35.5-45.6); Hemoglobin 12.6 gm/dl (11.8-15.2); Lymphocytes # (Auto) 2.1 K/mm3 (1.2-5.4); Lymphocytes % (Auto) 24.2 % (13.4-35.0); Mean Corpuscular HGB Conc 33 % (32-34); Mean Corpuscular Volume 85 fl (84-94); Monocytes # (Auto) 1.1 K/mm3 (0.0-0.8); Monocytes % (Auto) 12.7 % (0.0-7.3); Platelet Count 283 K/mm3 (140-440); Red Blood Count 4.49 M/mm3 (3.65-5.03); Red Cell Distribution Width 14.7 % (13.2-15.2)
[2020-08-08 06:33] LABS: Alanine Aminotransferase 14 units/L (7-56); Albumin 3.9 g/dL (3.9-5); Blood Urea Nitrogen 14 mg/dL (9-20); Calcium 8.5 mg/dL (8.4-10.2); Hemolysis Index 30
[2020-08-08 06:34] LABS: BUN/Creatinine Ratio 23
[2020-08-08] MEDS: amLODIPine 10 MG TAB PO SCH (09:07)
[2020-08-08] MEDS: D5W/0.9% NACL 1,000 ML IV SCH ×2 (09:07→20:54)
[2020-08-08] MEDS: FAMOTIDINE 20 MG/2 ML INJ IV SCH ×2 (09:07→20:55)
[2020-08-08] MEDS: ASPIRIN 300 MG RECT SUPP PR SCH (09:07)
--- NOTE | 2020-08-08 09:38 | Progress Note ---
Assessment and Plan Assessment and plan: 70-year-old male with past medical history of hypertension and pancreatic cancer who presents with right-sided paralysis and mute aphasia. Family members called 911 for wellness check. Family member had not heard from patient since last night. Police officers gained entry into the home. Patient was discovered on the floor. EMS arrived. Patient was discovered with severe aphasia and right-sided hemiparesis. No previous history of stroke according to family members report to EMS. Patient is unable to give history due to severe aphasia. Patient is mute. 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 No hemorrhage or mass-effect are seen at MR may be useful Acute CVA MRI brain shows a large left MCA stroke CTA head and neck shows occlusion of the left MCA. Neurology evaluation appreciated Echocardiogram negative for thrombus Continue cardiac monitoring on telemetry #Hypertensive emergency #Pancreatic cancer Stable. Patient will follow up with oncology as outpatient #Dysphagia Failed swallow evaluation #DVT ppx Lovenox 08/08/2020. Continue aspirin, Plavix and statins. Continue antihypertensive medications via NG tube. Patient with failed swallow evaluation. However, NG tube unable to be advanced. Consider replacing NG tube under fluoroscopy. Continue speech therapy evaluation. PT/OT evaluation History Interval history: No new issues overnight. Hospitalist Physical - Constitutional Vitals: Temp Pulse Resp BP Pulse Ox 98.3 F 71 17 127/69 98 08/08/20 08:23 08/08/20 09:07 08/08/20 08:23 08/08/20 09:07 08/08/20 08:23 General appearance: Present: no acute distress, well-nourished - EENT Eyes: Present: PERRL, EOM intact ENT: hearing intact, clear oral mucosa, dentition normal - Neck Neck: Present: supple, normal ROM - Respiratory Respiratory effort: normal Respiratory: bilateral: CTA - Cardiovascular Rhythm: regular Heart Sounds: Present: S1 & S2. Absent: gallop, rub - Extremities Extremities: no ischemia, No edema, Full ROM - Abdominal General gastrointestinal: soft, non-tender, non-distended, normal bowel sounds - Integumentary Integumentary: Present: clear, warm, dry - Neurologic Neurologic: CNII-XII intact, moves all extremities HEART Score - HEART Score Troponin: Troponin T < 0.010 ng/mL (0.00-0.029) 08/04/20 21:54 Results - Labs CBC & Chem 7: 08/08/20 05:29 08/08/20 05:29 Labs: Laboratory Last Values WBC 8.8 K/mm3 (4.5-11.0) 08/08/20 05:29 RBC 4.49 M/mm3 (3.65-5.03) 08/08/20 05:29 Hgb 12.6 gm/dl (11.8-15.2) 08/08/20 05:29 Hct 38.2 % (35.5-45.6) 08/08/20 05:29 MCV 85 fl (84-94) 08/08/20 05:29 MCH 28 pg (28-32) 08/08/20 05:29 MCHC 33 % (32-34) 08/08/20 05:29 RDW 14.7 % (13.2-15.2) 08/08/20 05:29 Plt Count 283 K/mm3 (140-440) 08/08/20 05:29 Lymph % (Auto) 24.2 % (13.4-35.0) 08/08/20 05:29 [place] % (Auto) 12.7 % (0.0-7.3) H 08/08/20 05:29 Eos % (Auto) 1.1 % (0.0-4.3) 08/08/20 05:29 Baso % (Auto) 0.6 % (0.0-1.8) 08/08/20 05:29 Lymph # (Auto) 2.1 K/mm3 (1.2-5.4) 08/08/20 05:29 [place] # (Auto) 1.1 K/mm3 (0.0-0.8) H 08/08/20 05:29 Eos # (Auto) 0.1 K/mm3 (0.0-0.4) 08/08/20 05:29 Baso # (Auto) 0.0 K/mm3 (0.0-0.1) 08/08/20 05:29 Seg Neutrophils % 61.4 % (40.0-70.0) 08/08/20 05:29 Seg Neutrophils # 5.4 K/mm3 (1.8-7.7) 08/08/20 05:29 PT 14.5 Sec. (12.2-14.9) 08/04/20 21:54 INR 1.15 (0.87-1.13) H 08/04/20 21:54 APTT 26.1 Sec. (24.2-36.6) 08/04/20 21:54 Sodium 141 mmol/L (137-145) 08/08/20 05:29 Potassium 3.6 mmol/L (3.6-5.0) 08/08/20 05:29 Chloride 108.5 mmol/L (98-107) H 08/08/20 05:29 Carbon Dioxide 19 mmol/L (22-30) L 08/08/20 05:29 Anion Gap 17 mmol/L 08/08/20 05:29 BUN 14 mg/dL (9-20) 08/08/20 05:29 Creatinine 0.6 mg/dL (0.8-1.3) L 08/08/20 05:29 Estimated GFR > 60 ml/min 08/08/20 05:29 BUN/Creatinine Ratio 23 % 08/08/20 05:29 Glucose 103 mg/dL (75-100) H 08/08/20 05:29 POC Glucose 109 mg/dL (70-105) H 08/07/20 15:31 Calcium 8.5 mg/dL (8.4-10.2) 08/08/20 05:29 Total Bilirubin 0.40 mg/dL (0.1-1.2) 08/08/20 05:29 AST 20 units/L (5-40) 08/08/20 05:29 ALT 14 units/L (7-56) 08/08/20 05:29 Alkaline Phosphatase 87 units/L (35-129) 08/08/20 05:29 Troponin T < 0.010 ng/mL (0.00-0.029) 08/04/20 21:54 Total Protein 7.0 g/dL (6.3-8.2) 08/08/20 05:29 Albumin 3.9 g/dL (3.9-5) 08/08/20 05:29 Albumin/Globulin Ratio 1.3 % 08/08/20 05:29 Triglycerides 102 mg/dL (2-149) 08/05/20 05:23 Cholesterol 253 mg/dL (50-199) H 08/05/20 05:23 LDL Cholesterol Direct 190 mg/dL (50-130) H 08/05/20 05:23 HDL Cholesterol 47 mg/dL (40-59) 08/05/20 05:23 Cholesterol/HDL Ratio 5.38 % 08/05/20 05:23 Urine Color Yellow (Yellow) 08/04/20 21:59 Urine Turbidity Slightly-cloudy (Clear) 08/04/20 21:59 Urine pH 7.0 (5.0-7.0) 08/04/20 21:59 Ur Specific [place] 1.015 (1.003-1.030) 08/04/20 21:59 Urine Protein <15 mg/dl mg/dL (Negative) 08/04/20 21:59 Urine Glucose (UA) 150 mg/dL (Negative) 08/04/20 21:59 Urine Ketones Tr mg/dL (Negative) 08/04/20 21:59 Urine Blood Sm (Negative) 08/04/20 21:59 Urine Nitrite Neg (Negative) 08/04/20 21:59 Urine Bilirubin Neg (Negative) 08/04/20 21:59 Urine Urobilinogen < 2.0 mg/dL (<2.0) 08/04/20 21:59 Ur Leukocyte Esterase Neg (Negative) 08/04/20 21:59 Urine WBC (Auto) 1.0 /HPF (0.0-6.0) 08/04/20 21:59 Urine RBC (Auto) 3.0 /HPF (0.0-6.0) 08/04/20 21:59 U Epithel Cells (Auto) < 1.0 /HPF (0-13.0) 08/04/20 21:59 Urine Mucus Few /HPF 08/04/20 21:59 Urine Opiates Screen Negative 08/04/20 21:59 Urine Methadone Screen Negative 08/04/20 21:59 Ur Barbiturates Screen Negative 08/04/20 21:59 Ur Phencyclidine Scrn Negative 08/04/20 21:59 Ur Amphetamines Screen Negative 08/04/20 21:59 U Benzodiazepines Scrn Negative 08/04/20 21:59 Urine Cocaine Screen Negative 08/04/20 21:59 U Marijuana (THC) Screen Negative 08/04/20 21:59 Drugs of Abuse Note Disclamer 08/04/20 21:59 Plasma/Serum Alcohol < 0.01 % (0-0.07) 08/04/20 21:54 Amaya/IV: Voiding Method Incontinent Active Medications - Current Medications Current Medications: Generic Name Dose Route Start Last Admin Trade Name Freq PRN Reason Stop Dose Admin Acetaminophen 650 mg 08/04/20 23:45 08/07/20 21:10 Acetaminophen 325 Mg Tab PO 650 mg Q4H PRN Administration Pain MILD(1-3)/Fever >100.5/SILVER Albuterol 2.5 mg 08/04/20 23:45 Albuterol 2.5 Mg/3 Ml Nebu IH Q4HRT PRN Shortness Of Breath Albuterol/Ipratropium 1 ampul 08/05/20 02:00 08/08/20 03:42 Ipratropium/Albuterol Sulfate 3 Ml Ampul.Neb IH 1 ampul Q6HRT JACOB Administration Amlodipine Besylate 10 mg 08/06/20 14:00 08/08/20 09:07 Amlodipine 10 Mg Tab PO 10 mg QDAY JACOB Administration Lipase/Protease/Amylase 1 each 08/07/20 09:18 Lipase 10,500/Protease 25,000/Amylase 43,750 (Units) Dr Len BYNUM PRN PRN For Clogged Feeding Tube Aspirin 300 mg 08/05/20 22:00 08/08/20 09:07 Aspirin 300 Mg Rect Supp [place] 300 mg QDAY JACOB Administration Atorvastatin Calcium 80 mg 08/05/20 22:00 08/07/20 21:09 Atorvastatin 40 Mg Tab PO 80 mg QHS JACOB Administration Enoxaparin Sodium 40 mg 08/06/20 22:00 08/07/20 21:10 Enoxaparin 40 Mg/0.4 Ml Inj SUB-Q 40 mg QDAY@2200 JACOB Administration Protocol Famotidine 20 mg 08/05/20 10:00 08/08/20 09:07 Famotidine 20 Mg/2 Ml Inj IV 20 mg BID JACOB Administration Hydralazine HCl 10 mg 08/04/20 23:49 08/07/20 09:23 Hydralazine 20 Mg/1 Ml Inj IV 10 mg Q6H PRN Administration Hypertension Dextrose/Sodium Chloride 1,000 mls @ 60 mls/hr 08/04/20 23:45 08/08/20 09:07 D5ns IV 75 mls/hr DIRECT JACOB Administration Ondansetron HCl 4 mg 08/04/20 23:45 Ondansetron 4 Mg/2 Ml Inj IV Q8H PRN Nausea And Vomiting Simple Syrup 15 ml 08/07/20 09:18 Simple Syrup 15 Ml FEEDTUBE PRN PRN Hypoglycemia Simple Syrup 30 ml 08/07/20 09:18 Simple Syrup 15 Ml FEEDTUBE PRN PRN Hypoglycemia Sodium Bicarbonate 325 mg 08/07/20 09:18 Sodium Bicarbonate 325 Mg Tab FEEDTUBE PRN PRN For Clogged Feeding Tube Sodium Chloride 10 ml 08/05/20 10:00 08/08/20 09:08 Sodium Chloride 0.9% 10 Ml Flush Syringe IV 10 ml BID JACOB Administration Sodium Chloride 10 ml 08/04/20 23:45 Sodium Chloride 0.9% 10 Ml Flush Syringe IV PRN PRN LINE FLUSH Nutrition/Malnutrition Assess - Dietary Evaluation Nutrition/Malnutrition Findings: Nutrition Notes Start: 08/07/20 09: 03 Freq: Status: Active Protocol: Document 08/07/20 09:03 AL (Rec: 08/07/20 09:18 AL [id number]) Co-Sign 08/07/20 09:03 LP Nutrition Notes Need for Assessment generated from: MD Order Initial or Follow up Assessment Current Diagnosis Hypertension,Stroke Other Pertinent Diagnosis Aphasia, Pancreatic Cancer, R side paralysis Current Diet NPO Labs/Tests K 3.5 Cr 0.6 Pertinent Medications D5NS 75 ml/hr KCl at 100 ml/hr Height 5 ft 8 in Weight 69.3 kg [place] Body Weight (kg) 70.00 BMI 23.2 Weight Status Appropriate Subjective/Other Information MD Consult for write/manage TF . Pt has aphasia and per speech note, has delayed swallowing. Percent of energy/protein needs met: 0%/0% Burn Absent Trauma Absent Current % PO Negligible Minimum of two criteria No physical signs of malnutrition #1 Nutrition Diagnosis Inadequate oral intake Etiology Delayed swallow reflex As Evidenced by Signs and Symptoms Pt NPO and had delayed swallowing, per speech eval. Is patient on ventilator? No Is Patient Ambulatory and/or Out of Bed Yes REE-([facility]-ambulatory/OOB) [ 1842.750 NUTR.MSJOOB] Calculation Used for Recommendations [facility] Additional Notes Protein:70-84 g (1-1.2 g/kg) Fluid: 1 ml/kcal Nutrition Intervention Change Diet Order: TF Nutrition Support: Jevity 1.2 at 60 mL/hr Flush 100 mL q4h Kcal 1,728 Protein (gm) 80 Fluid (mL) 1,168 Goal #1 TF start Goal #2 Pt meets at least 75% of estimated energy/protein needs via TF Goal #3 TF tolerance Anticipated Discharge Needs: Jevity 1.2 at 60 ml/hr Flush 100 ml q4h Follow-Up By: 08/11/20 Additional Comments F/U fort TF start and tolerance.
[2020-08-08] MEDS: ENOXAPARIN 40 MG/0.4 ML INJ SUB-Q SCH ×2 (20:54→22:05)
[2020-08-09] MEDS: FAMOTIDINE 20 MG/2 ML INJ IV SCH ×2 (02:06→09:10)
[2020-08-09] MEDS: IPRATROPIUM/ALBUTEROL SULFATE 3 ML AMPUL.NEB IH SCH ×4 (04:08→20:25)
[2020-08-09 06:39] LABS: Basophils % (Auto) 0.6 % (0.0-1.8); Eosinophils # (Auto) 0.1 K/mm3 (0.0-0.4); Eosinophils % (Auto) 1.6 % (0.0-4.3); Hematocrit 35.9 % (35.5-45.6); Hemoglobin 11.8 gm/dl (11.8-15.2); Mean Corpuscular HGB Conc 33 % (32-34); Mean Corpuscular Volume 85 fl (84-94); Monocytes # (Auto) 0.7 K/mm3 (0.0-0.8); Monocytes % (Auto) 10.4 % (0.0-7.3); Platelet Count 265 K/mm3 (140-440); Red Blood Count 4.24 M/mm3 (3.65-5.03); Red Cell Distribution Width 14.4 % (13.2-15.2)
[2020-08-09 06:49] LABS: Alanine Aminotransferase 12 units/L (7-56); Albumin 3.7 g/dL (3.9-5); Blood Urea Nitrogen 9 mg/dL (9-20); Calcium 8.8 mg/dL (8.4-10.2); Hemolysis Index 2
[2020-08-09 06:57] LABS: BUN/Creatinine Ratio 15
--- NOTE | 2020-08-09 09:09 | Progress Note ---
Assessment and Plan Assessment and plan: 70-year-old male with past medical history of hypertension and pancreatic cancer who presents with right-sided paralysis and mute aphasia. Family members called 911 for wellness check. Family member had not heard from patient since last night. Police officers gained entry into the home. Patient was discovered on the floor. EMS arrived. Patient was discovered with severe aphasia and right-sided hemiparesis. No previous history of stroke according to family members report to EMS. Patient is unable to give history due to severe aphasia. Patient is mute. 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 No hemorrhage or mass-effect are seen at MR may be useful Acute CVA MRI brain shows a large left MCA stroke CTA head and neck shows occlusion of the left MCA. Neurology evaluation appreciated Echocardiogram negative for thrombus Continue cardiac monitoring on telemetry #Hypertensive emergency #Pancreatic cancer Stable. Patient will follow up with oncology as outpatient #Dysphagia Failed swallow evaluation #DVT ppx Lovenox 08/08/2020. Continue aspirin, Plavix and statins. Continue antihypertensive medications via NG tube. Patient with failed swallow evaluation. However, NG tube unable to be advanced. Consider replacing NG tube under fluoroscopy. Continue speech therapy evaluation. PT/OT evaluation 08/09. Speech therapy cleared patient for pured diet. Continue PT/OT/ST. Continue CVA pathway with aspirin and Lipitor. Echocardiogram reveals EF of 55 to 60% with no thrombus. Physical therapy recommends acute rehab. Awaiting placement. History Interval history: No new issues overnight. Hospitalist Physical - Constitutional Vitals: Temp Pulse Resp BP Pulse Ox 98.2 F 81 17 165/96 97 08/09/20 07:56 08/09/20 08:06 08/09/20 08:06 08/09/20 07:56 08/09/20 08:06 General appearance: Present: no acute distress, well-nourished - EENT Eyes: Present: PERRL, EOM intact ENT: hearing intact, clear oral mucosa, dentition normal - Neck Neck: Present: supple, normal ROM - Respiratory Respiratory effort: normal Respiratory: bilateral: CTA - Cardiovascular Rhythm: regular Heart Sounds: Present: S1 & S2. Absent: gallop, rub - Extremities Extremities: no ischemia, No edema, Full ROM - Abdominal General gastrointestinal: soft, non-tender, non-distended, normal bowel sounds - Integumentary Integumentary: Present: clear, warm, dry - Neurologic Neurologic: CNII-XII intact, moves all extremities HEART Score - HEART Score Troponin: Troponin T < 0.010 ng/mL (0.00-0.029) 08/04/20 21:54 Results - Labs CBC & Chem 7: 08/09/20 05:34 08/09/20 05:34 Labs: Laboratory Last Values WBC 6.9 K/mm3 (4.5-11.0) 08/09/20 05:34 RBC 4.24 M/mm3 (3.65-5.03) 08/09/20 05:34 Hgb 11.8 gm/dl (11.8-15.2) 08/09/20 05:34 Hct 35.9 % (35.5-45.6) 08/09/20 05:34 MCV 85 fl (84-94) 08/09/20 05:34 MCH 28 pg (28-32) 08/09/20 05:34 MCHC 33 % (32-34) 08/09/20 05:34 RDW 14.4 % (13.2-15.2) 08/09/20 05:34 Plt Count 265 K/mm3 (140-440) 08/09/20 05:34 Lymph % (Auto) 29.0 % (13.4-35.0) 08/09/20 05:34 [place] % (Auto) 10.4 % (0.0-7.3) H 08/09/20 05:34 Eos % (Auto) 1.6 % (0.0-4.3) 08/09/20 05:34 Baso % (Auto) 0.6 % (0.0-1.8) 08/09/20 05:34 Lymph # (Auto) 2.0 K/mm3 (1.2-5.4) 08/09/20 05:34 [place] # (Auto) 0.7 K/mm3 (0.0-0.8) 08/09/20 05:34 Eos # (Auto) 0.1 K/mm3 (0.0-0.4) 08/09/20 05:34 Baso # (Auto) 0.0 K/mm3 (0.0-0.1) 08/09/20 05:34 Seg Neutrophils % 58.4 % (40.0-70.0) 08/09/20 05:34 Seg Neutrophils # 4.0 K/mm3 (1.8-7.7) 08/09/20 05:34 PT 14.5 Sec. (12.2-14.9) 08/04/20 21:54 INR 1.15 (0.87-1.13) H 08/04/20 21:54 APTT 26.1 Sec. (24.2-36.6) 08/04/20 21:54 Sodium 141 mmol/L (137-145) 08/09/20 05:34 Potassium 3.3 mmol/L (3.6-5.0) L 08/09/20 05:34 Chloride 111.0 mmol/L (98-107) H 08/09/20 05:34 Carbon Dioxide 20 mmol/L (22-30) L 08/09/20 05:34 Anion Gap 13 mmol/L 08/09/20 05:34 BUN 9 mg/dL (9-20) 08/09/20 05:34 Creatinine 0.6 mg/dL (0.8-1.3) L 08/09/20 05:34 Estimated GFR > 60 ml/min 08/09/20 05:34 BUN/Creatinine Ratio 15 % 08/09/20 05:34 Glucose 105 mg/dL (75-100) H 08/09/20 05:34 POC Glucose 111 mg/dL (70-105) H 08/08/20 16:43 Calcium 8.8 mg/dL (8.4-10.2) 08/09/20 05:34 Total Bilirubin 0.50 mg/dL (0.1-1.2) 08/09/20 05:34 AST 13 units/L (5-40) 08/09/20 05:34 ALT 12 units/L (7-56) 08/09/20 05:34 Alkaline Phosphatase 85 units/L (35-129) 08/09/20 05:34 Troponin T < 0.010 ng/mL (0.00-0.029) 08/04/20 21:54 Total Protein 6.6 g/dL (6.3-8.2) 08/09/20 05:34 Albumin 3.7 g/dL (3.9-5) L 08/09/20 05:34 Albumin/Globulin Ratio 1.3 % 08/09/20 05:34 Triglycerides 102 mg/dL (2-149) 08/05/20 05:23 Cholesterol 253 mg/dL (50-199) H 08/05/20 05:23 LDL Cholesterol Direct 190 mg/dL (50-130) H 08/05/20 05:23 HDL Cholesterol 47 mg/dL (40-59) 08/05/20 05:23 Cholesterol/HDL Ratio 5.38 % 08/05/20 05:23 Urine Color Yellow (Yellow) 08/04/20 21:59 Urine Turbidity Slightly-cloudy (Clear) 08/04/20 21:59 Urine pH 7.0 (5.0-7.0) 08/04/20 21:59 Ur Specific [place] 1.015 (1.003-1.030) 08/04/20 21:59 Urine Protein <15 mg/dl mg/dL (Negative) 08/04/20 21:59 Urine Glucose (UA) 150 mg/dL (Negative) 08/04/20 21:59 Urine Ketones Tr mg/dL (Negative) 08/04/20 21:59 Urine Blood Sm (Negative) 08/04/20 21:59 Urine Nitrite Neg (Negative) 08/04/20 21:59 Urine Bilirubin Neg (Negative) 08/04/20 21:59 Urine Urobilinogen < 2.0 mg/dL (<2.0) 08/04/20 21:59 Ur Leukocyte Esterase Neg (Negative) 08/04/20 21:59 Urine WBC (Auto) 1.0 /HPF (0.0-6.0) 08/04/20 21:59 Urine RBC (Auto) 3.0 /HPF (0.0-6.0) 08/04/20 21:59 U Epithel Cells (Auto) < 1.0 /HPF (0-13.0) 08/04/20 21:59 Urine Mucus Few /HPF 08/04/20 21:59 Urine Opiates Screen Negative 08/04/20 21:59 Urine Methadone Screen Negative 08/04/20 21:59 Ur Barbiturates Screen Negative 08/04/20 21:59 Ur Phencyclidine Scrn Negative 08/04/20 21:59 Ur Amphetamines Screen Negative 08/04/20 21:59 U Benzodiazepines Scrn Negative 08/04/20 21:59 Urine Cocaine Screen Negative 08/04/20 21:59 U Marijuana (THC) Screen Negative 08/04/20 21:59 Drugs of Abuse Note Disclamer 08/04/20 21:59 Plasma/Serum Alcohol < 0.01 % (0-0.07) 08/04/20 21:54 Coronavirus (PCR) Negative (Negative) 08/07/20 Unknown Amaya/IV: Voiding Method Condom Catheter Active Medications - Current Medications Current Medications: Generic Name Dose Route Start Last Admin Trade Name Freq PRN Reason Stop Dose Admin Acetaminophen 650 mg 08/04/20 23:45 08/07/20 21:10 Acetaminophen 325 Mg Tab PO 650 mg Q4H PRN Administration Pain MILD(1-3)/Fever >100.5/SILVER Albuterol 2.5 mg 08/04/20 23:45 Albuterol 2.5 Mg/3 Ml Nebu IH Q4HRT PRN Shortness Of Breath Albuterol/Ipratropium 1 ampul 08/05/20 02:00 08/09/20 08:53 Ipratropium/Albuterol Sulfate 3 Ml Ampul.Neb IH 1 ampul Q6HRT JACOB Administration Amlodipine Besylate 10 mg 08/06/20 14:00 08/08/20 09:07 Amlodipine 10 Mg Tab PO 10 mg QDAY JACOB Administration Lipase/Protease/Amylase 1 each 08/07/20 09:18 Lipase 10,500/Protease 25,000/Amylase 43,750 (Units) Dr Len FORDTBETHEL PRN PRN For Clogged Feeding Tube Aspirin 300 mg 08/05/20 22:00 08/08/20 09:07 Aspirin 300 Mg Rect Supp [place] 300 mg QDAY JACOB Administration Atorvastatin Calcium 80 mg 08/05/20 22:00 08/09/20 02:06 Atorvastatin 40 Mg Tab PO Not Given QHS [facility] Enoxaparin Sodium 40 mg 08/06/20 22:00 08/08/20 22:05 Enoxaparin 40 Mg/0.4 Ml Inj SUB-Q Not Given QDAY@2200 [facility] Protocol Famotidine 20 mg 08/05/20 10:00 08/09/20 02:06 Famotidine 20 Mg/2 Ml Inj IV Not Given BID JACOB Hydralazine HCl 10 mg 08/04/20 23:49 08/07/20 09:23 Hydralazine 20 Mg/1 Ml Inj IV 10 mg Q6H PRN Administration Hypertension Dextrose/Sodium Chloride 1,000 mls @ 60 mls/hr 08/04/20 23:45 08/08/20 20:54 D5ns IV 75 mls/hr DIRECT JACOB Administration Ondansetron HCl 4 mg 08/04/20 23:45 Ondansetron 4 Mg/2 Ml Inj IV Q8H PRN Nausea And Vomiting Simple Syrup 15 ml 08/07/20 09:18 Simple Syrup 15 Ml FEEDTUBE PRN PRN Hypoglycemia Simple Syrup 30 ml 08/07/20 09:18 Simple Syrup 15 Ml FEEDTUBE PRN PRN Hypoglycemia Sodium Bicarbonate 325 mg 08/07/20 09:18 Sodium Bicarbonate 325 Mg Tab FEEDTUBE PRN PRN For Clogged Feeding Tube Sodium Chloride 10 ml 08/05/20 10:00 08/09/20 02:06 Sodium Chloride 0.9% 10 Ml Flush Syringe IV Not Given BID JACOB Sodium Chloride 10 ml 08/04/20 23:45 Sodium Chloride 0.9% 10 Ml Flush Syringe IV PRN PRN LINE FLUSH Nutrition/Malnutrition Assess - Dietary Evaluation Nutrition/Malnutrition Findings: Nutrition Notes Start: 08/07/20 09:03 Freq: Status: Active Protocol: Document 08/07/20 09:03 AL (Rec: 08/07/20 09:18 AL [id number]) Co-Sign 08/07/20 09:03 LP Nutrition Notes Need for Assessment generated from: MD Order Initial or Follow up Assessment Current Diagnosis Hypertension,Stroke Other Pertinent Diagnosis Aphasia, Pancreatic Cancer, R side paralysis Current Diet NPO Labs/Tests K 3.5 Cr 0.6 Pertinent Medications D5NS 75 ml/hr KCl at 100 ml/hr Height 5 ft 8 in Weight 69.3 kg [place] Body Weight (kg) 70.00 BMI 23.2 Weight Status Appropriate Subjective/Other Information MD Consult for write/manage TF . Pt has aphasia and per speech note, has delayed swallowing. Percent of energy/protein needs met: 0%/0% Burn Absent Trauma Absent Current % PO Negligible Minimum of two criteria No physical signs of malnutrition #1 Nutrition Diagnosis Inadequate oral intake Etiology Delayed swallow reflex As Evidenced by Signs and Symptoms Pt NPO and had delayed swallowing, per speech eval. Is patient on ventilator? No Is Patient Ambulatory and/or Out of Bed Yes REE-([facility]-ambulatory/OOB) [ 1842.750 NUTR.MSJOOB] Calculation Used for Recommendations [facility] Additional Notes Protein:70-84 g (1-1.2 g/kg) Fluid: 1 ml/kcal Nutrition Intervention Change Diet Order: TF Nutrition Support: Jevity 1.2 at 60 mL/hr Flush 100 mL q4h Kcal 1,728 Protein (gm) 80 Fluid (mL) 1,168 Goal #1 TF start Goal #2 Pt meets at least 75% of estimated energy/protein needs via TF Goal #3 TF tolerance Anticipated Discharge Needs: Jevity 1.2 at 60 ml/hr Flush 100 ml q4h Follow-Up By: 08/11/20 Additional Comments F/U fort TF start and tolerance.
[2020-08-09] MEDS: ASPIRIN 300 MG RECT SUPP PR SCH (09:10)
[2020-08-09] MEDS: amLODIPine 10 MG TAB PO SCH (09:10)
[2020-08-09] MEDS: hydrALAZINE 20 MG/1 ML INJ IV PRN (12:04)
[2020-08-09] MEDS: D5W/0.9% NACL 1,000 ML IV SCH (16:35)
[2020-08-09] MEDS: ENOXAPARIN 40 MG/0.4 ML INJ SUB-Q SCH (21:25)
[2020-08-09] MEDS: ACETAMINOPHEN 325 MG TAB PO PRN (21:25)
[2020-08-09] MEDS: FAMOTIDINE 20 MG TAB PO SCH (21:26)
[2020-08-10 05:37] LABS: Basophils % (Auto) 0.5 % (0.0-1.8); Eosinophils # (Auto) 0.1 K/mm3 (0.0-0.4); Eosinophils % (Auto) 1.2 % (0.0-4.3); Hematocrit 35.7 % (35.5-45.6); Hemoglobin 11.8 gm/dl (11.8-15.2); Lymphocytes # (Auto) 1.8 K/mm3 (1.2-5.4); Lymphocytes % (Auto) 22.4 % (13.4-35.0); Mean Corpuscular HGB Conc 33 % (32-34); Mean Corpuscular Volume 85 fl (84-94); Monocytes # (Auto) 0.8 K/mm3 (0.0-0.8); Monocytes % (Auto) 9.9 % (0.0-7.3); Platelet Count 268 K/mm3 (140-440); Red Blood Count 4.22 M/mm3 (3.65-5.03); Red Cell Distribution Width 14.4 % (13.2-15.2)
[2020-08-10 05:57] LABS: Alanine Aminotransferase 12 units/L (7-56); Albumin 3.4 g/dL (3.9-5); BUN/Creatinine Ratio 17; Blood Urea Nitrogen 10 mg/dL (9-20); Calcium 8.4 mg/dL (8.4-10.2); Hemolysis Index 2
[2020-08-10] MEDS ORDERED: IPRATROPIUM/ALBUTEROL SULFATE 3 ML AMPUL.NEB IH SCH (08:00)
--- NOTE | 2020-08-10 08:48 | Progress Note ---
Assessment and Plan Assessment and plan: 70-year-old male with past medical history of hypertension and pancreatic cancer who presents with right-sided paralysis and mute aphasia. Family members called 911 for wellness check. Family member had not heard from patient since last night. Police officers gained entry into the home. Patient was discovered on the floor. EMS arrived. Patient was discovered with severe aphasia and right-sided hemiparesis. No previous history of stroke according to family members report to EMS. Patient is unable to give history due to severe aphasia. Patient is mute. [employer] Helper reports normal blood glucose In the emergency room CT scan of the head showed moderate ischemic type changes are seen bilaterally better worse on the left these include some age indeterminate areas in the deep left brain and mildly on the left posterior temporal cortex which could include acute or subacute areas of infarction. No hemorrhage or mass-effect are seen at MR may be useful Acute CVA MRI brain shows a large left MCA stroke CTA head and neck shows occlusion of the left MCA. Neurology evaluation appreciated Echocardiogram negative for thrombus Continue cardiac monitoring on telemetry Hypertensive emergency Pancreatic cancer Stable. Patient will follow up with oncology as outpatient Dysphagia Failed swallow evaluation DVT ppx Lovenox 08/08/2020. Continue aspirin, Plavix and statins. Continue antihypertensive medications via NG tube. Patient with failed swallow evaluation. However, NG tube unable to be advanced. Consider replacing NG tube under fluoroscopy. Continue speech therapy evaluation. PT/OT evaluation 08/09. Speech therapy cleared patient for pured diet. Continue PT/OT/ST. Continue CVA pathway with aspirin and Lipitor. Echocardiogram reveals EF of 55 to 60% with no thrombus. Physical therapy recommends acute rehab. Awaiting placement. 08/10. Patient exhibits severe aphasia affecting comprehension and verbal expressive skills. Speech therapy cleared patient for pured diet. Continue PT/OT/ST. Continue CVA pathway with aspirin and Lipitor. Echocardiogram reveals EF of 55 to 60% with no thrombus. Physical therapy recommends acute rehab. Awaiting placement. History Interval history: No new issues overnight. Hospitalist Physical - Constitutional Vitals: Temp Pulse Resp BP Pulse Ox 99.2 F 83 18 172/89 97 08/10/20 03:22 08/10/20 03:22 08/10/20 03:22 08/10/20 03:22 08/10/20 03:22 General appearance: Present: no acute distress, well-nourished - EENT Eyes: Present: PERRL, EOM intact ENT: hearing intact, clear oral mucosa, dentition normal - Neck Neck: Present: supple, normal ROM - Respiratory Respiratory effort: normal Respiratory: bilateral: CTA - Cardiovascular Rhythm: regular Heart Sounds: Present: S1 & S2. Absent: gallop, rub - Extremities Extremities: no ischemia, No edema, Full ROM - Abdominal General gastrointestinal: soft, non-tender, non-distended, normal bowel sounds - Integumentary Integumentary: Present: clear, warm, dry - Neurologic Neurologic: CNII-XII intact, moves all extremities HEART Score - HEART Score Troponin: Troponin T < 0.010 ng/mL (0.00-0.029) 08/04/20 21:54 Results - Labs CBC & Chem 7: 08/10/20 04:59 08/10/20 04:59 Labs: Laboratory Last Values WBC 8.2 K/mm3 (4.5-11.0) 08/10/20 04:59 RBC 4.22 M/mm3 (3.65-5.03) 08/10/20 04:59 Hgb 11.8 gm/dl (11.8-15.2) 08/10/20 04:59 Hct 35.7 % (35.5-45.6) 08/10/20 04:59 MCV 85 fl (84-94) 08/10/20 04:59 MCH 28 pg (28-32) 08/10/20 04:59 MCHC 33 % (32-34) 08/10/20 04:59 RDW 14.4 % (13.2-15.2) 08/10/20 04:59 Plt Count 268 K/mm3 (140-440) 08/10/20 04:59 Lymph % (Auto) 22.4 % (13.4-35.0) 08/10/20 04:59 [place] % (Auto) 9.9 % (0.0-7.3) H 08/10/20 04:59 Eos % (Auto) 1.2 % (0.0-4.3) 08/10/20 04:59 Baso % (Auto) 0.5 % (0.0-1.8) 08/10/20 04:59 Lymph # (Auto) 1.8 K/mm3 (1.2-5.4) 08/10/20 04:59 [place] # (Auto) 0.8 K/mm3 (0.0-0.8) 08/10/20 04:59 Eos # (Auto) 0.1 K/mm3 (0.0-0.4) 08/10/20 04:59 Baso # (Auto) 0.0 K/mm3 (0.0-0.1) 08/10/20 04:59 Seg Neutrophils % 66.0 % (40.0-70.0) 08/10/20 04:59 Seg Neutrophils # 5.4 K/mm3 (1.8-7.7) 08/10/20 04:59 PT 14.5 Sec. (12.2-14.9) 08/04/20 21:54 INR 1.15 (0.87-1.13) H 08/04/20 21:54 APTT 26.1 Sec. (24.2-36.6) 08/04/20 21:54 Sodium 142 mmol/L (137-145) 08/10/20 04:59 Potassium 3.3 mmol/L (3.6-5.0) L 08/10/20 04:59 Chloride 111.7 mmol/L (98-107) H 08/10/20 04:59 Carbon Dioxide 21 mmol/L (22-30) L 08/10/20 04:59 Anion Gap 13 mmol/L 08/10/20 04:59 BUN 10 mg/dL (9-20) 08/10/20 04:59 Creatinine 0.6 mg/dL (0.8-1.3) L 08/10/20 04:59 Estimated GFR > 60 ml/min 08/10/20 04:59 BUN/Creatinine Ratio 17 % 08/10/20 04:59 Glucose 100 mg/dL (75-100) 08/10/20 04:59 POC Glucose 102 mg/dL (70-105) 08/10/20 05:19 Calcium 8.4 mg/dL (8.4-10.2) 08/10/20 04:59 Total Bilirubin 0.40 mg/dL (0.1-1.2) 08/10/20 04:59 AST 15 units/L (5-40) 08/10/20 04:59 ALT 12 units/L (7-56) 08/10/20 04:59 Alkaline Phosphatase 85 units/L (35-129) 08/10/20 04:59 Troponin T < 0.010 ng/mL (0.00-0.029) 08/04/20 21:54 Total Protein 6.4 g/dL (6.3-8.2) 08/10/20 04:59 Albumin 3.4 g/dL (3.9-5) L 08/10/20 04:59 Albumin/Globulin Ratio 1.1 % 08/10/20 04:59 Triglycerides 102 mg/dL (2-149) 08/05/20 05:23 Cholesterol 253 mg/dL (50-199) H 08/05/20 05:23 LDL Cholesterol Direct 190 mg/dL (50-130) H 08/05/20 05:23 HDL Cholesterol 47 mg/dL (40-59) 08/05/20 05:23 Cholesterol/HDL Ratio 5.38 % 08/05/20 05:23 Urine Color Yellow (Yellow) 08/04/20 21:59 Urine Turbidity Slightly-cloudy (Clear) 08/04/20 21:59 Urine pH 7.0 (5.0-7.0) 08/04/20 21:59 Ur Specific [place] 1.015 (1.003-1.030) 08/04/20 21:59 Urine Protein <15 mg/dl mg/dL (Negative) 08/04/20 21:59 Urine Glucose (UA) 150 mg/dL (Negative) 08/04/20 21:59 Urine Ketones Tr mg/dL (Negative) 08/04/20 21:59 Urine Blood Sm (Negative) 08/04/20 21:59 Urine Nitrite Neg (Negative) 08/04/20 21:59 Urine Bilirubin Neg (Negative) 08/04/20 21:59 Urine Urobilinogen < 2.0 mg/dL (<2.0) 08/04/20 21:59 Ur Leukocyte Esterase Neg (Negative) 08/04/20 21:59 Urine WBC (Auto) 1.0 /HPF (0.0-6.0) 08/04/20 21:59 Urine RBC (Auto) 3.0 /HPF (0.0-6.0) 08/04/20 21:59 U Epithel Cells (Auto) < 1.0 /HPF (0-13.0) 08/04/20 21:59 Urine Mucus Few /HPF 08/04/20 21:59 Urine Opiates Screen Negative 08/04/20 21:59 Urine Methadone Screen Negative 08/04/20 21:59 Ur Barbiturates Screen Negative 08/04/20 21:59 Ur Phencyclidine Scrn Negative 08/04/20 21:59 Ur Amphetamines Screen Negative 08/04/20 21:59 U Benzodiazepines Scrn Negative 08/04/20 21:59 Urine Cocaine Screen Negative 08/04/20 21:59 U Marijuana (THC) Screen Negative 08/04/20 21:59 Drugs of Abuse Note Disclamer 08/04/20 21:59 Plasma/Serum Alcohol < 0.01 % (0-0.07) 08/04/20 21:54 Coronavirus (PCR) Negative (Negative) 08/07/20 Unknown Amaya/IV: Voiding Method Condom Catheter Active Medications - Current Medications Current Medications: Generic Name Dose Route Start Last Admin Trade Name Freq PRN Reason Stop Dose Admin Acetaminophen 650 mg 08/04/20 23:45 08/09/20 21:25 Acetaminophen 325 Mg Tab PO 650 mg Q4H PRN Administration Pain MILD(1-3)/Fever >100.5/SILVER Albuterol 2.5 mg 08/04/20 23:45 Albuterol 2.5 Mg/3 Ml Nebu IH Q4HRT PRN Shortness Of Breath Amlodipine Besylate 10 mg 08/06/20 14:00 08/09/20 09:10 Amlodipine 10 Mg Tab PO 10 mg QDAY JACOB Administration Lipase/Protease/Amylase 1 each 08/07/20 09:18 Lipase 10,500/Protease 25,000/Amylase 43,750 (Units) Dr Harrington FEEDTUBE PRN PRN For Clogged Feeding Tube Aspirin 300 mg 08/05/20 22:00 08/09/20 09:10 Aspirin 300 Mg Rect Supp [place] 300 mg QDAY JACOB Administration Atorvastatin Calcium 80 mg 08/05/20 22:00 08/09/20 21:26 Atorvastatin 40 Mg Tab PO 80 mg QHS JACOB Administration Enoxaparin Sodium 40 mg 08/06/20 22:00 08/09/20 21:25 Enoxaparin 40 Mg/0.4 Ml Inj SUB-Q 40 mg QDAY@2200 JACOB Administration Protocol Famotidine 20 mg 08/09/20 22:00 08/09/20 21:26 Famotidine 20 Mg Tab PO 20 mg BID JACOB Administration Hydralazine HCl 10 mg 08/04/20 23:49 08/09/20 12:04 Hydralazine 20 Mg/1 Ml Inj IV 10 mg Q6H PRN Administration Hypertension Dextrose/Sodium Chloride 1,000 mls @ 60 mls/hr 08/04/20 23:45 08/09/20 16:35 D5ns IV 75 mls/hr DIRECT JACOB Administration Ondansetron HCl 4 mg 08/04/20 23:45 Ondansetron 4 Mg/2 Ml Inj IV Q8H PRN Nausea And Vomiting Simple Syrup 15 ml 08/07/20 09:18 Simple Syrup 15 Ml FEEDTUBE PRN PRN Hypoglycemia Simple Syrup 30 ml 08/07/20 09:18 Simple Syrup 15 Ml FEEDTUBE PRN PRN Hypoglycemia Sodium Bicarbonate 325 mg 08/07/20 09:18 Sodium Bicarbonate 325 Mg Tab FEEDTUBE PRN PRN For Clogged Feeding Tube Sodium Chloride 10 ml 08/05/20 10:00 08/09/20 21:26 Sodium Chloride 0.9% 10 Ml Flush Syringe IV 10 ml BID JACOB Administration Sodium Chloride 10 ml 08/04/20 23:45 Sodium Chloride 0.9% 10 Ml Flush Syringe IV PRN PRN LINE FLUSH Nutrition/Malnutrition Assess - Dietary Evaluation Nutrition/Malnutrition Findings: Nutrition Notes Start: 08/07/20 09:03 Freq: Status: Active Protocol: Document 08/07/20 09:03 AL (Rec: 08/07/20 09:18 AL [id number]) Co-Sign 08/07/20 09:03 LP Nutrition Notes Need for Assessment generated from: MD Order Initial or Follow up Assessment Current Diagnosis Hypertension,Stroke Other Pertinent Diagnosis Aphasia, Pancreatic Cancer, R side paralysis Current Diet NPO Labs/Tests K 3.5 Cr 0.6 Pertinent Medications D5NS 75 ml/hr KCl at 100 ml/hr Height 5 ft 8 in Weight 69.3 kg [place] Body Weight (kg) 70.00 BMI 23.2 Weight Status Appropriate Subjective/Other Information MD Consult for write/manage TF . Pt has aphasia and per speech note, has delayed swallowing. Percent of energy/protein needs met: 0%/0% Burn Absent Trauma Absent Current % PO Negligible Minimum of two criteria No physical signs of malnutrition #1 Nutrition Diagnosis Inadequate oral intake Etiology Delayed swallow reflex As Evidenced by Signs and Symptoms Pt NPO and had delayed swallowing, per speech eval. Is patient on ventilator? No Is Patient Ambulatory and/or Out of Bed Yes REE-([facility]-ambulatory/OOB) [ 1842.750 [id number]] Calculation Used for Recommendations [facility] Additional Notes Protein:70-84 g (1-1.2 g/kg) Fluid: 1 ml/kcal Nutrition Intervention Change Diet Order: TF Nutrition Support: Jevity 1.2 at 60 mL/hr Flush 100 mL q4h Kcal 1,728 Protein (gm) 80 Fluid (mL) 1,168 Goal #1 TF start Goal #2 Pt meets at least 75% of estimated energy/protein needs via TF Goal #3 TF tolerance Anticipated Discharge Needs: Jevity 1.2 at 60 ml/hr Flush 100 ml q4h Follow-Up By: 08/11/20 Additional Comments F/U fort TF start and tolerance.
[2020-08-10] MEDS: ASPIRIN 300 MG RECT SUPP PR SCH (12:09)
[2020-08-10] MEDS: FAMOTIDINE 20 MG TAB PO SCH ×2 (12:10→20:59)
[2020-08-10] MEDS: amLODIPine 10 MG TAB PO SCH (12:10)
[2020-08-10] MEDS: D5W/0.9% NACL 1,000 ML IV SCH (12:13)
[2020-08-10] MEDS: ACETAMINOPHEN 325 MG TAB PO PRN ×2 (13:46→20:59)
[2020-08-10] MEDS: ENOXAPARIN 40 MG/0.4 ML INJ SUB-Q SCH (20:59)
[2020-08-11 05:36] LABS: Basophils % (Auto) 0.5 % (0.0-1.8); Eosinophils # (Auto) 0.1 K/mm3 (0.0-0.4); Eosinophils % (Auto) 1.3 % (0.0-4.3); Hematocrit 35.8 % (35.5-45.6); Hemoglobin 12.3 gm/dl (11.8-15.2); Lymphocytes # (Auto) 1.9 K/mm3 (1.2-5.4); Lymphocytes % (Auto) 23.3 % (13.4-35.0); Mean Corpuscular HGB Conc 34 % (32-34); Mean Corpuscular Volume 86 fl (84-94); Monocytes # (Auto) 0.8 K/mm3 (0.0-0.8); Monocytes % (Auto) 9.2 % (0.0-7.3); Platelet Count 236 K/mm3 (140-440); Red Blood Count 4.18 M/mm3 (3.65-5.03); Red Cell Distribution Width 14.2 % (13.2-15.2)
[2020-08-11 05:52] LABS: Alanine Aminotransferase 14 units/L (7-56); Albumin 3.5 g/dL (3.9-5); Blood Urea Nitrogen 11 mg/dL (9-20); Hemolysis Index 11
[2020-08-11 06:12] LABS: BUN/Creatinine Ratio 18
[2020-08-11] MEDS: D5W/0.9% NACL 1,000 ML IV SCH ×3 (07:38→23:58)
--- NOTE | 2020-08-11 08:33 | Gastroenterology Consultation ---
History of Present Illness - Reason for Consult Consult date: 08/11/20 oropharyngeal dysphagia/peg tube placement Requesting physician: DORY LYNCH - History of Present Illness The patient is a 70 yo aam who presented with acute cva/expressive aphasia. pt unable to provide history due to aphasia, possible able to understand questions as he nods appropriately to some questions. He initially failed swallow study, had repeat eval and was cleared for pureed diet. he has had minimal po intake, as he is unable to feed himself. pt not on plavix/anticoagulation. Past History Past Medical History: hypertension, other (Pancreatic cancer) Medications and Allergies Allergies Allergy/AdvReac Type Severity Reaction Status Date / Time No Known Allergies Allergy Verified 08/05/20 15:39 Home Medications Medication Instructions Recorded Confirmed Last Taken Type Simvastatin 20 mg PO QHS 08/09/20 08/09/20 Unknown History Tamsulosin [Flomax] 0.4 mg PO BID 08/09/20 08/09/20 Unknown History amLODIPine [Norvasc] 10 mg PO DAILY 08/09/20 08/09/20 Unknown History lisinopriL [Zestril TAB] 40 mg PO QDAY 08/09/20 08/09/20 Unknown History Active Meds: Active Medications Acetaminophen (Acetaminophen 325 Mg Tab) 650 mg PO Q4H PRN PRN Reason: Pain MILD(1-3)/Fever >100.5/SILVER Last Admin: 08/10/20 20:59 Dose: 650 mg Documented by: Albuterol (Albuterol 2.5 Mg/3 Ml Nebu) 2.5 mg IH Q4HRT PRN PRN Reason: Shortness Of Breath Amlodipine Besylate (Amlodipine 10 Mg Tab) 10 mg PO QDAY [facility] Last Admin: 08/10/20 12:10 Dose: 10 mg Documented by: Lipase/Protease/Amylase (Lipase 10,500/Protease 25,000/Amylase 43,750 (Units) Dr Harrington) 1 each FEEDTUBE PRN PRN PRN Reason: For Clogged Feeding Tube Aspirin (Aspirin 300 Mg Rect Supp) 300 mg WI QDAY [facility] Last Admin: 08/10/20 12:09 Dose: 300 mg Documented by: Atorvastatin Calcium (Atorvastatin 40 Mg Tab) 80 mg PO QHS [facility] Last Admin: 08/10/20 20:59 Dose: 80 mg Documented by: Enoxaparin Sodium (Enoxaparin 40 Mg/0.4 Ml Inj) 40 mg SUB-Q QDAY@2200 [facility]; Protocol Last Admin: 08/10/20 20:59 Dose: 40 mg Documented by: Famotidine (Famotidine 20 Mg Tab) 20 mg PO BID [facility] Last Admin: 08/10/20 20:59 Dose: 20 mg Documented by: Hydralazine HCl (Hydralazine 20 Mg/1 Ml Inj) 10 mg IV Q6H PRN PRN Reason: Hypertension Last Admin: 08/09/20 12:04 Dose: 10 mg Documented by: Dextrose/Sodium Chloride (D5ns) 1,000 mls @ 60 mls/hr IV DIRECT [facility] Last Admin: 08/11/20 07:38 Dose: 75 mls/hr Documented by: Ondansetron HCl (Ondansetron 4 Mg/2 Ml Inj) 4 mg IV Q8H PRN PRN Reason: Nausea And Vomiting Last Admin: 08/10/20 13:46 Dose: 4 mg Documented by: Simple Syrup (Simple Syrup 15 Ml) 15 ml FEEDTUBE PRN PRN PRN Reason: Hypoglycemia Simple Syrup (Simple Syrup 15 Ml) 30 ml FEEDTUBE PRN PRN PRN Reason: Hypoglycemia Sodium Bicarbonate (Sodium Bicarbonate 325 Mg Tab) 325 mg FEEDTUBE PRN PRN PRN Reason: For Clogged Feeding Tube Sodium Chloride (Sodium Chloride 0.9% 10 Ml Flush Syringe) 10 ml IV BID [facility] Last Admin: 08/10/20 21:00 Dose: 10 ml Documented by: Sodium Chloride (Sodium Chloride 0.9% 10 Ml Flush Syringe) 10 ml IV PRN PRN PRN Reason: LINE FLUSH Reviewed/updated patient's home and current medications Review of Systems - Review of Systems ROS unobtainable: due to mental status Exam - Constitutional Vital Signs: Temp Pulse Resp BP Pulse Ox 97.6 F 44 L 18 149/85 95 08/11/20 03:04 08/11/20 03:04 08/11/20 03:04 08/11/20 03:04 08/11/20 03:04 General appearance: other (nad, non-verbal) - Respiratory Respiratory effort: normal Respiratory: bilateral: CTA - Cardiovascular Rhythm: regular Heart Sounds: Present: S1 & S2 Extremities: No edema - Gastrointestinal General gastrointestinal: Present: soft, non-tender, non-distended - Psychiatric Psychiatric: other (+ expressive aphasia) - Labs CBC & Chem 7: 08/11/20 04:50 08/11/20 04:50 Lab Results: Laboratory Results - last 24 hr 08/10/20 08/10/20 08/10/20 10:44 16:05 20:52 WBC RBC Hgb Hct MCV MCH MCHC RDW Plt Count Lymph % (Auto) [place] % (Auto) Eos % (Auto) Baso % (Auto) Lymph # (Auto) [place] # (Auto) Eos # (Auto) Baso # (Auto) Seg Neutrophils % Seg Neutrophils # Sodium Potassium Chloride Carbon Dioxide Anion Gap BUN Creatinine Estimated GFR BUN/Creatinine Ratio Glucose POC Glucose 109 H 109 H 104 Calcium Total Bilirubin AST ALT Alkaline Phosphatase Total Protein Albumin Albumin/Globulin Ratio 08/11/20 08/11/20 08/11/20 04:50 04:50 05:33 WBC 8.2 RBC 4.18 Hgb 12.3 Hct 35.8 MCV 86 MCH 30 MCHC 34 RDW 14.2 Plt Count 236 Lymph % (Auto) 23.3 [place] % (Auto) 9.2 H Eos % (Auto) 1.3 Baso % (Auto) 0.5 Lymph # (Auto) 1.9 [place] # (Auto) 0.8 Eos # (Auto) 0.1 Baso # (Auto) 0.0 Seg Neutrophils % 65.7 Seg Neutrophils # 5.4 Sodium 140 Potassium 3.2 L Chloride 107.5 H Carbon Dioxide 21 L Anion Gap 15 BUN 11 Creatinine 0.6 L Estimated GFR > 60 BUN/Creatinine Ratio 18 Glucose 97 POC Glucose 103 Calcium 9.0 Total Bilirubin 0.40 AST 16 ALT 14 Alkaline Phosphatase 93 Total Protein 6.6 Albumin 3.5 L Albumin/Globulin Ratio 1.1 Assessment and Plan 1. Oropharyngeal dysphagia - due to recent acute cva and now with expressive aphasia. was cleared for pureed diet by speech however he would likely require assistance with all feeds based in his current state. will await principal architectural firm recommendations
--- NOTE | 2020-08-11 08:33 | Progress Note ---
Assessment and Plan Assessment and plan: 70-year-old male with past medical history of hypertension and pancreatic cancer who presents with right-sided paralysis and mute aphasia. Family members called 911 for wellness check. Family member had not heard from patient since last night. Police officers gained entry into the home. Patient was discovered on the floor. EMS arrived. Patient was discovered with severe aphasia and right-sided hemiparesis. No previous history of stroke according to family members report to EMS. Patient is unable to give history due to severe aphasia. Patient is mute. Dungeon Master reports normal blood glucose In the emergency room CT scan of the head showed moderate ischemic type changes are seen bilaterally better worse on the left these include some age indeterminate areas in the deep left brain and mildly on the left posterior temporal cortex which could include acute or subacute areas of infarction. No hemorrhage or mass-effect are seen at MR may be useful Acute CVA MRI brain shows a large left MCA stroke CTA head and neck shows occlusion of the left MCA. Neurology evaluation appreciated Echocardiogram negative for thrombus Continue cardiac monitoring on telemetry Hypertensive emergency Pancreatic cancer Stable. Patient will follow up with oncology as outpatient Dysphagia Failed swallow evaluation DVT ppx Lovenox 08/08/2020. Continue aspirin, Plavix and statins. Continue antihypertensive medications via NG tube. Patient with failed swallow evaluation. However, NG tube unable to be advanced. Consider replacing NG tube under fluoroscopy. Continue speech therapy evaluation. PT/OT evaluation 08/09. Speech therapy cleared patient for pured diet. Continue PT/OT/ST. Continue CVA pathway with aspirin and Lipitor. Echocardiogram reveals EF of 55 to 60% with no thrombus. Physical therapy recommends acute rehab. Awaiting placement. 08/10. Patient exhibits severe aphasia affecting comprehension and verbal expressive skills. Speech therapy cleared patient for pured diet. Continue PT/OT/ST. Continue CVA pathway with aspirin and Lipitor. Echocardiogram reveals EF of 55 to 60% with no thrombus. Physical therapy recommends acute rehab. Awaiting placement. 08/11. Patient exhibits severe aphasia affecting comprehension and verbal expressive skills. Speech therapy cleared patient for pured diet. However, unsure if patient has adequate caloric intake. Reconsult dietitian for further evaluation. If patient has insufficient nutrition, we will plan for PEG placement. I discussed with GI on yesterday. Continue PT/OT/ST. Continue CVA pathway with aspirin and Lipitor. Echocardiogram reveals EF of 55 to 60% with no thrombus. Physical therapy recommends acute rehab. Awaiting placement. History Interval history: No new issues overnight. Hospitalist Physical - Constitutional Vitals: Temp Pulse Resp BP Pulse Ox 97.6 F 44 L 18 149/85 95 08/11/20 03:04 08/11/20 03:04 08/11/20 03:04 08/11/20 03:04 08/11/20 03:04 General appearance: Present: no acute distress, well-nourished - EENT Eyes: Present: PERRL, EOM intact ENT: hearing intact, clear oral mucosa, dentition normal - Neck Neck: Present: supple, normal ROM - Respiratory Respiratory effort: normal Respiratory: bilateral: CTA - Cardiovascular Rhythm: regular Heart Sounds: Present: S1 & S2. Absent: gallop, rub - Extremities Extremities: no ischemia, No edema, Full ROM - Abdominal General gastrointestinal: soft, non-tender, non-distended, normal bowel sounds - Integumentary Integumentary: Present: clear, warm, dry - Neurologic Neurologic: CNII-XII intact, moves all extremities HEART Score - HEART Score Troponin: Troponin T < 0.010 ng/mL (0.00-0.029) 08/04/20 21:54 Results - Labs CBC & Chem 7: 08/11/20 04:50 08/11/20 04:50 Labs: Laboratory Last Values WBC 8.2 K/mm3 (4.5-11.0) 08/11/20 04:50 RBC 4.18 M/mm3 (3.65-5.03) 08/11/20 04:50 Hgb 12.3 gm/dl (11.8-15.2) 08/11/20 04:50 Hct 35.8 % (35.5-45.6) 08/11/20 04:50 MCV 86 fl (84-94) 08/11/20 04:50 MCH 30 pg (28-32) 08/11/20 04:50 MCHC 34 % (32-34) 08/11/20 04:50 RDW 14.2 % (13.2-15.2) 08/11/20 04:50 Plt Count 236 K/mm3 (140-440) 08/11/20 04:50 Lymph % (Auto) 23.3 % (13.4-35.0) 08/11/20 04:50 [place] % (Auto) 9.2 % (0.0-7.3) H 08/11/20 04:50 Eos % (Auto) 1.3 % (0.0-4.3) 08/11/20 04:50 Baso % (Auto) 0.5 % (0.0-1.8) 08/11/20 04:50 Lymph # (Auto) 1.9 K/mm3 (1.2-5.4) 08/11/20 04:50 [place] # (Auto) 0.8 K/mm3 (0.0-0.8) 08/11/20 04:50 Eos # (Auto) 0.1 K/mm3 (0.0-0.4) 08/11/20 04:50 Baso # (Auto) 0.0 K/mm3 (0.0-0.1) 08/11/20 04:50 Seg Neutrophils % 65.7 % (40.0-70.0) 08/11/20 04:50 Seg Neutrophils # 5.4 K/mm3 (1.8-7.7) 08/11/20 04:50 PT 14.5 Sec. (12.2-14.9) 08/04/20 21:54 INR 1.15 (0.87-1.13) H 08/04/20 21:54 APTT 26.1 Sec. (24.2-36.6) 08/04/20 21:54 Sodium 140 mmol/L (137-145) 08/11/20 04:50 Potassium 3.2 mmol/L (3.6-5.0) L 08/11/20 04:50 Chloride 107.5 mmol/L (98-107) H 08/11/20 04:50 Carbon Dioxide 21 mmol/L (22-30) L 08/11/20 04:50 Anion Gap 15 mmol/L 08/11/20 04:50 BUN 11 mg/dL (9-20) 08/11/20 04:50 Creatinine 0.6 mg/dL (0.8-1.3) L 08/11/20 04:50 Estimated GFR > 60 ml/min 08/11/20 04:50 BUN/Creatinine Ratio 18 % 08/11/20 04:50 Glucose 97 mg/dL (75-100) 08/11/20 04:50 POC Glucose 103 mg/dL (70-105) 08/11/20 05:33 Calcium 9.0 mg/dL (8.4-10.2) 08/11/20 04:50 Total Bilirubin 0.40 mg/dL (0.1-1.2) 08/11/20 04:50 AST 16 units/L (5-40) 08/11/20 04:50 ALT 14 units/L (7-56) 08/11/20 04:50 Alkaline Phosphatase 93 units/L (35-129) 08/11/20 04:50 Troponin T < 0.010 ng/mL (0.00-0.029) 08/04/20 21:54 Total Protein 6.6 g/dL (6.3-8.2) 08/11/20 04:50 Albumin 3.5 g/dL (3.9-5) L 08/11/20 04:50 Albumin/Globulin Ratio 1.1 % 08/11/20 04:50 Triglycerides 102 mg/dL (2-149) 08/05/20 05:23 Cholesterol 253 mg/dL (50-199) H 08/05/20 05:23 LDL Cholesterol Direct 190 mg/dL (50-130) H 08/05/20 05:23 HDL Cholesterol 47 mg/dL (40-59) 08/05/20 05:23 Cholesterol/HDL Ratio 5.38 % 08/05/20 05:23 Urine Color Yellow (Yellow) 08/04/20 21:59 Urine Turbidity Slightly-cloudy (Clear) 08/04/20 21:59 Urine pH 7.0 (5.0-7.0) 08/04/20 21:59 Ur Specific [place] 1.015 (1.003-1.030) 08/04/20 21:59 Urine Protein <15 mg/dl mg/dL (Negative) 08/04/20 21:59 Urine Glucose (UA) 150 mg/dL (Negative) 08/04/20 21:59 Urine Ketones Tr mg/dL (Negative) 08/04/20 21:59 Urine Blood Sm (Negative) 08/04/20 21:59 Urine Nitrite Neg (Negative) 08/04/20 21:59 Urine Bilirubin Neg (Negative) 08/04/20 21:59 Urine Urobilinogen < 2.0 mg/dL (<2.0) 08/04/20 21:59 Ur Leukocyte Esterase Neg (Negative) 08/04/20 21:59 Urine WBC (Auto) 1.0 /HPF (0.0-6.0) 08/04/20 21:59 Urine RBC (Auto) 3.0 /HPF (0.0-6.0) 08/04/20 21:59 U Epithel Cells (Auto) < 1.0 /HPF (0-13.0) 08/04/20 21:59 Urine Mucus Few /HPF 08/04/20 21:59 Urine Opiates Screen Negative 08/04/20 21:59 Urine Methadone Screen Negative 08/04/20 21:59 Ur Barbiturates Screen Negative 08/04/20 21:59 Ur Phencyclidine Scrn Negative 08/04/20 21:59 Ur Amphetamines Screen Negative 08/04/20 21:59 U Benzodiazepines Scrn Negative 08/04/20 21:59 Urine Cocaine Screen Negative 08/04/20 21:59 U Marijuana (THC) Screen Negative 08/04/20 21:59 Drugs of Abuse Note Disclamer 08/04/20 21:59 Plasma/Serum Alcohol < 0.01 % (0-0.07) 08/04/20 21:54 Coronavirus (PCR) Negative (Negative) 08/07/20 Unknown Amaya/IV: Voiding Method Condom Catheter Active Medications - Current Medications Current Medications: Generic Name Dose Route Start Last Admin Trade Name Freq PRN Reason Stop Dose Admin Acetaminophen 650 mg 08/04/20 23:45 08/10/20 20:59 Acetaminophen 325 Mg Tab PO 650 mg Q4H PRN Administration Pain MILD(1-3)/Fever >100.5/SILVER Albuterol 2.5 mg 08/04/20 23:45 Albuterol 2.5 Mg/3 Ml Nebu IH Q4HRT PRN Shortness Of Breath Amlodipine Besylate 10 mg 08/06/20 14:00 08/10/20 12:10 Amlodipine 10 Mg Tab PO 10 mg QDAY JACOB Administration Lipase/Protease/Amylase 1 each 08/07/20 09:18 Lipase 10,500/Protease 25,000/Amylase 43,750 (Units) Dr Harrington FEEDTUBE PRN PRN For Clogged Feeding Tube Aspirin 300 mg 08/05/20 22:00 08/10/20 12:09 Aspirin 300 Mg Rect Supp [place] 300 mg QDAY JACOB Administration Atorvastatin Calcium 80 mg 08/05/20 22:00 08/10/20 20:59 Atorvastatin 40 Mg Tab PO 80 mg QHS JACOB Administration Enoxaparin Sodium 40 mg 08/06/20 22:00 08/10/20 20:59 Enoxaparin 40 Mg/0.4 Ml Inj SUB-Q 40 mg QDAY@2200 JACOB Administration Protocol Famotidine 20 mg 08/09/20 22:00 08/10/20 20:59 Famotidine 20 Mg Tab PO 20 mg BID JACOB Administration Hydralazine HCl 10 mg 08/04/20 23:49 08/09/20 12:04 Hydralazine 20 Mg/1 Ml Inj IV 10 mg Q6H PRN Administration Hypertension Dextrose/Sodium Chloride 1,000 mls @ 60 mls/hr 08/04/20 23:45 08/11/20 07:38 D5ns IV 75 mls/hr DIRECT JACOB Administration Ondansetron HCl 4 mg 08/04/20 23:45 08/10/20 13:46 Ondansetron 4 Mg/2 Ml Inj IV 4 mg Q8H PRN Administration Nausea And Vomiting Simple Syrup 15 ml 08/07/20 09:18 Simple Syrup 15 Ml FEEDTUBE PRN PRN Hypoglycemia Simple Syrup 30 ml 08/07/20 09:18 Simple Syrup 15 Ml FEEDTUBE PRN PRN Hypoglycemia Sodium Bicarbonate 325 mg 08/07/20 09:18 Sodium Bicarbonate 325 Mg Tab FEEDTUBE PRN PRN For Clogged Feeding Tube Sodium Chloride 10 ml 08/05/20 10:00 08/10/20 21:00 Sodium Chloride 0.9% 10 Ml Flush Syringe IV 10 ml BID JACOB Administration Sodium Chloride 10 ml 08/04/20 23:45 Sodium Chloride 0.9% 10 Ml Flush Syringe IV PRN PRN LINE FLUSH Nutrition/Malnutrition Assess - Dietary Evaluation Nutrition/Malnutrition Findings: Nutrition Notes Start: 08/07/20 09:03 Freq: Status: Active Protocol: Document 08/07/20 09:03 AL (Rec: 08/07/20 09:18 AL [id number]) Co-Sign 08/07/20 09:03 LP Nutrition Notes Need for Assessment generated from: MD Order Initial or Follow up Assessment Current Diagnosis Hypertension,Stroke Other Pertinent Diagnosis Aphasia, Pancreatic Cancer, R side paralysis Current Diet NPO Labs/Tests K 3.5 Cr 0.6 Pertinent Medications D5NS 75 ml/hr KCl at 100 ml/hr Height 5 ft 8 in Weight 69.3 kg [place] Body Weight (kg) 70.00 BMI 23.2 Weight Status Appropriate Subjective/Other Information MD Consult for write/manage TF . Pt has aphasia and per speech note, has delayed swallowing. Percent of energy/protein needs met: 0%/0% Burn Absent Trauma Absent Current % PO Negligible Minimum of two criteria No physical signs of malnutrition #1 Nutrition Diagnosis Inadequate oral intake Etiology Delayed swallow reflex As Evidenced by Signs and Symptoms Pt NPO and had delayed swallowing, per speech eval. Is patient on ventilator? No Is Patient Ambulatory and/or Out of Bed Yes REE-([facility]-ambulatory/OOB) [ 1842.750 [id number]] Calculation Used for Recommendations [facility] Additional Notes Protein:70-84 g (1-1.2 g/kg) Fluid: 1 ml/kcal Nutrition Intervention Change Diet Order: TF Nutrition Support: Jevity 1.2 at 60 mL/hr Flush 100 mL q4h Kcal 1,728 Protein (gm) 80 Fluid (mL) 1,168 Goal #1 TF start Goal #2 Pt meets at least 75% of estimated energy/protein needs via TF Goal #3 TF tolerance Anticipated Discharge Needs: Jevity 1.2 at 60 ml/hr Flush 100 ml q4h Follow-Up By: 08/11/20 Additional Comments F/U fort TF start and tolerance.
[2020-08-11] MEDS: ASPIRIN 300 MG RECT SUPP PR SCH (10:10)
[2020-08-11] MEDS: amLODIPine 10 MG TAB PO SCH (10:10)
[2020-08-11] MEDS: FAMOTIDINE 20 MG TAB PO SCH ×2 (10:20→21:17)
[2020-08-11] MEDS: ENOXAPARIN 40 MG/0.4 ML INJ SUB-Q SCH (21:17)
[2020-08-12 05:54] LABS: Basophils % (Auto) 0.5 % (0.0-1.8); Eosinophils # (Auto) 0.1 K/mm3 (0.0-0.4); Eosinophils % (Auto) 1.1 % (0.0-4.3); Hematocrit 34.1 % (35.5-45.6); Lymphocytes % (Auto) 26.9 % (13.4-35.0); Mean Corpuscular HGB Conc 35 % (32-34); Mean Corpuscular Volume 85 fl (84-94); Monocytes # (Auto) 0.7 K/mm3 (0.0-0.8); Monocytes % (Auto) 9.6 % (0.0-7.3); Platelet Count 246 K/mm3 (140-440); Red Blood Count 4.03 M/mm3 (3.65-5.03)
[2020-08-12 06:09] LABS: Alanine Aminotransferase 15 units/L (7-56); Albumin 3.6 g/dL (3.9-5); Blood Urea Nitrogen 8 mg/dL (9-20); Calcium 8.5 mg/dL (8.4-10.2); Hemolysis Index 2
[2020-08-12 06:10] LABS: BUN/Creatinine Ratio 20
[2020-08-12] MEDS ORDERED: POTASSIUM CHLORIDE ER 20 MEQ TAB PO ONE (06:17)
[2020-08-12] MEDS: hydrALAZINE 20 MG/1 ML INJ IV PRN (06:52)
[2020-08-12] MEDS: POTASSIUM CHLORIDE ER 20 MEQ TAB PO SCH ×2 (06:52→09:35)
--- NOTE | 2020-08-12 09:03 | Progress Note ---
Assessment and Plan Assessment and plan: 70-year-old male with past medical history of hypertension and pancreatic cancer who presents with right-sided paralysis and mute aphasia. Family members called 911 for wellness check. Family member had not heard from patient since last night. Police officers gained entry into the home. Patient was discovered on the floor. EMS arrived. Patient was discovered with severe aphasia and right-sided hemiparesis. No previous history of stroke according to family members report to EMS. Patient is unable to give history due to severe aphasia. Patient is mute. Food Production Supervisor reports normal blood glucose In the emergency room CT scan of the head showed moderate ischemic type changes are seen bilaterally better worse on the left these include some age indeterminate areas in the deep left brain and mildly on the left posterior temporal cortex which could include acute or subacute areas of infarction. No hemorrhage or mass-effect are seen at MR may be useful Acute CVA MRI brain shows a large left MCA stroke CTA head and neck shows occlusion of the left MCA. Neurology evaluation appreciated Echocardiogram negative for thrombus Continue cardiac monitoring on telemetry Hypertensive emergency Pancreatic cancer Stable. Patient will follow up with oncology as outpatient Dysphagia Failed swallow evaluation DVT ppx Lovenox 08/08/2020. Continue aspirin, Plavix and statins. Continue antihypertensive medications via NG tube. Patient with failed swallow evaluation. However, NG tube unable to be advanced. Consider replacing NG tube under fluoroscopy. Continue speech therapy evaluation. PT/OT evaluation 08/09. Speech therapy cleared patient for pured diet. Continue PT/OT/ST. Continue CVA pathway with aspirin and Lipitor. Echocardiogram reveals EF of 55 to 60% with no thrombus. Physical therapy recommends acute rehab. Awaiting placement. 08/10. Patient exhibits severe aphasia affecting comprehension and verbal expressive skills. Speech therapy cleared patient for pured diet. Continue PT/OT/ST. Continue CVA pathway with aspirin and Lipitor. Echocardiogram reveals EF of 55 to 60% with no thrombus. Physical therapy recommends acute rehab. Awaiting placement. 08/11. Patient exhibits severe aphasia affecting comprehension and verbal expressive skills. Speech therapy cleared patient for pured diet. However, unsure if patient has adequate caloric intake. Reconsult dietitian for further evaluation. If patient has insufficient nutrition, we will plan for PEG placement. I discussed with GI on yesterday. Continue PT/OT/ST. Continue CVA pathway with aspirin and Lipitor. Echocardiogram reveals EF of 55 to 60% with no thrombus. Physical therapy recommends acute rehab. Awaiting placement. 08/12; I have seen and evaluated this morning. He only ate a bite from his breakfast. His nutrition intake is inadequate and I have discussed with GI and patient will have PEG tube placement tomorrow. After that he is pending placement. History Interval history: Patient was seen and evaluated this morning Patient has aphasia, left-sided hemiplegia His caloric intake is inadequate Hospitalist Physical - Physical exam Narrative exam: Not in cardiopulmonary distress. The patient appeared well nourished and normally developed. Vital signs as documented. Head exam is unremarkable. No scleral icterus . Neck is without jugular venous distension, thyromegaly, or carotid bruits. Lungs are clear to auscultation. Cardiac exam reveals regular rate and Rhythm. Abdominal exam reveals normal bowel sounds, nontender, no organomegaly. Extremities are nonedematous and both femoral and pedal pulses are normal. MINE PROMOTOR: Aphasia, left-sided hemiplegia. - Constitutional Vitals: Temp Pulse Resp BP Pulse Ox 97.5 F L 70 18 175/81 97 08/12/20 07:56 08/12/20 07:56 08/12/20 07:56 08/12/20 07:56 08/12/20 07:56 General appearance: Present: no acute distress, well-nourished HEART Score - HEART Score Troponin: Troponin T < 0.010 ng/mL (0.00-0.029) 08/04/20 21:54 Results - Labs CBC & Chem 7: 08/12/20 05:22 08/12/20 05:22 Labs: Laboratory Last Values WBC 7.3 K/mm3 (4.5-11.0) 08/12/20 05:22 RBC 4.03 M/mm3 (3.65-5.03) 08/12/20 05:22 Hgb 12.0 gm/dl (11.8-15.2) 08/12/20 05:22 Hct 34.1 % (35.5-45.6) L 08/12/20 05:22 MCV 85 fl (84-94) 08/12/20 05:22 MCH 30 pg (28-32) 08/12/20 05:22 MCHC 35 % (32-34) H 08/12/20 05:22 RDW 14.0 % (13.2-15.2) 08/12/20 05:22 Plt Count 246 K/mm3 (140-440) 08/12/20 05:22 Lymph % (Auto) 26.9 % (13.4-35.0) 08/12/20 05:22 [place] % (Auto) 9.6 % (0.0-7.3) H 08/12/20 05:22 Eos % (Auto) 1.1 % (0.0-4.3) 08/12/20 05:22 Baso % (Auto) 0.5 % (0.0-1.8) 08/12/20 05:22 Lymph # (Auto) 2.0 K/mm3 (1.2-5.4) 08/12/20 05:22 [place] # (Auto) 0.7 K/mm3 (0.0-0.8) 08/12/20 05:22 Eos # (Auto) 0.1 K/mm3 (0.0-0.4) 08/12/20 05:22 Baso # (Auto) 0.0 K/mm3 (0.0-0.1) 08/12/20 05:22 Seg Neutrophils % 61.9 % (40.0-70.0) 08/12/20 05:22 Seg Neutrophils # 4.5 K/mm3 (1.8-7.7) 08/12/20 05:22 PT 14.5 Sec. (12.2-14.9) 08/04/20 21:54 INR 1.15 (0.87-1.13) H 08/04/20 21:54 APTT 26.1 Sec. (24.2-36.6) 08/04/20 21:54 Sodium 142 mmol/L (137-145) 08/12/20 05:22 Potassium 3.0 mmol/L (3.6-5.0) L 08/12/20 05:22 Chloride 108.8 mmol/L (98-107) H 08/12/20 05:22 Carbon Dioxide 22 mmol/L (22-30) 08/12/20 05:22 Anion Gap 14 mmol/L 08/12/20 05:22 BUN 8 mg/dL (9-20) L 08/12/20 05:22 Creatinine 0.4 mg/dL (0.8-1.3) L 08/12/20 05:22 Estimated GFR > 60 ml/min 08/12/20 05:22 BUN/Creatinine Ratio 20 % 08/12/20 05:22 Glucose 104 mg/dL (75-100) H 08/12/20 05:22 POC Glucose 91 mg/dL (70-105) 08/12/20 06:06 Calcium 8.5 mg/dL (8.4-10.2) 08/12/20 05:22 Total Bilirubin 0.30 mg/dL (0.1-1.2) 08/12/20 05:22 AST 18 units/L (5-40) 08/12/20 05:22 ALT 15 units/L (7-56) 08/12/20 05:22 Alkaline Phosphatase 98 units/L (35-129) 08/12/20 05:22 Troponin T < 0.010 ng/mL (0.00-0.029) 08/04/20 21:54 Total Protein 6.4 g/dL (6.3-8.2) 08/12/20 05:22 Albumin 3.6 g/dL (3.9-5) L 08/12/20 05:22 Albumin/Globulin Ratio 1.3 % 08/12/20 05:22 Triglycerides 102 mg/dL (2-149) 08/05/20 05:23 Cholesterol 253 mg/dL (50-199) H 08/05/20 05:23 LDL Cholesterol Direct 190 mg/dL (50-130) H 08/05/20 05:23 HDL Cholesterol 47 mg/dL (40-59) 08/05/20 05:23 Cholesterol/HDL Ratio 5.38 % 08/05/20 05:23 Urine Color Yellow (Yellow) 08/04/20 21:59 Urine Turbidity Slightly-cloudy (Clear) 08/04/20 21:59 Urine pH 7.0 (5.0-7.0) 08/04/20 21:59 Ur Specific [place] 1.015 (1.003-1.030) 08/04/20 21:59 Urine Protein <15 mg/dl mg/dL (Negative) 08/04/20 21:59 Urine Glucose (UA) 150 mg/dL (Negative) 08/04/20 21:59 Urine Ketones Tr mg/dL (Negative) 08/04/20 21:59 Urine Blood Sm (Negative) 08/04/20 21:59 Urine Nitrite Neg (Negative) 08/04/20 21:59 Urine Bilirubin Neg (Negative) 08/04/20 21:59 Urine Urobilinogen < 2.0 mg/dL (<2.0) 08/04/20 21:59 Ur Leukocyte Esterase Neg (Negative) 08/04/20 21:59 Urine WBC (Auto) 1.0 /HPF (0.0-6.0) 08/04/20 21:59 Urine RBC (Auto) 3.0 /HPF (0.0-6.0) 08/04/20 21:59 U Epithel Cells (Auto) < 1.0 /HPF (0-13.0) 08/04/20 21:59 Urine Mucus Few /HPF 08/04/20 21:59 Urine Opiates Screen Negative 08/04/20 21:59 Urine Methadone Screen Negative 08/04/20 21:59 Ur Barbiturates Screen Negative 08/04/20 21:59 Ur Phencyclidine Scrn Negative 08/04/20 21:59 Ur Amphetamines Screen Negative 08/04/20 21:59 U Benzodiazepines Scrn Negative 08/04/20 21:59 Urine Cocaine Screen Negative 08/04/20 21:59 U Marijuana (THC) Screen Negative 08/04/20 21:59 Drugs of Abuse Note Disclamer 08/04/20 21:59 Plasma/Serum Alcohol < 0.01 % (0-0.07) 08/04/20 21:54 Coronavirus (PCR) Negative (Negative) 08/07/20 Unknown Amaya/IV: Voiding Method Condom Catheter Active Medications - Current Medications Current Medications: Generic Name Dose Route Start Last Admin Trade Name Freq PRN Reason Stop Dose Admin Acetaminophen 650 mg 08/04/20 23:45 08/10/20 20:59 Acetaminophen 325 Mg Tab PO 650 mg Q4H PRN Administration Pain MILD(1-3)/Fever >100.5/SILVER Albuterol 2.5 mg 08/04/20 23:45 Albuterol 2.5 Mg/3 Ml Nebu IH Q4HRT PRN Shortness Of Breath Amlodipine Besylate 10 mg 08/06/20 14:00 08/11/20 10:10 Amlodipine 10 Mg Tab PO 10 mg QDAY JACOB Administration Lipase/Protease/Amylase 1 each 08/07/20 09:18 Lipase 10,500/Protease 25,000/Amylase 43,750 (Units) Dr Harrington FEEDTUBE PRN PRN For Clogged Feeding Tube Aspirin 300 mg 08/05/20 22:00 08/11/20 10:10 Aspirin 300 Mg Rect Supp [place] 300 mg QDAY JACOB Administration Atorvastatin Calcium 80 mg 08/05/20 22:00 08/11/20 21:17 Atorvastatin 40 Mg Tab PO 80 mg QHS JACOB Administration Enoxaparin Sodium 40 mg 08/06/20 22:00 08/11/20 21:17 Enoxaparin 40 Mg/0.4 Ml Inj SUB-Q 40 mg QDAY@2200 JACOB Administration Protocol Famotidine 20 mg 08/09/20 22:00 08/11/20 21:17 Famotidine 20 Mg Tab PO 20 mg BID JACOB Administration Hydralazine HCl 10 mg 08/04/20 23:49 08/12/20 06:52 Hydralazine 20 Mg/1 Ml Inj IV 10 mg Q6H PRN Administration Hypertension Dextrose/Sodium Chloride 1,000 mls @ 60 mls/hr 08/04/20 23:45 08/11/20 23:58 D5ns IV 75 mls/hr DIRECT JACOB Administration Ondansetron HCl 4 mg 08/04/20 23:45 08/10/20 13:46 Ondansetron 4 Mg/2 Ml Inj IV 4 mg Q8H PRN Administration Nausea And Vomiting Potassium Chloride 40 meq 08/12/20 06:30 08/12/20 06:52 Potassium Chloride Er 20 Meq Tab PO 08/12/20 09:31 40 meq Q3H JACOB Administration Simple Syrup 15 ml 08/07/20 09:18 Simple Syrup 15 Ml FEEDTUBE PRN PRN Hypoglycemia Simple Syrup 30 ml 08/07/20 09:18 Simple Syrup 15 Ml FEEDTUBE PRN PRN Hypoglycemia Sodium Bicarbonate 325 mg 08/07/20 09:18 Sodium Bicarbonate 325 Mg Tab FEEDTUBE PRN PRN For Clogged Feeding Tube Sodium Chloride 10 ml 08/05/20 10:00 08/11/20 10:23 Sodium Chloride 0.9% 10 Ml Flush Syringe IV 10 ml BID JACOB Administration Sodium Chloride 10 ml 08/04/20 23:45 Sodium Chloride 0.9% 10 Ml Flush Syringe IV PRN PRN LINE FLUSH Nutrition/Malnutrition Assess - Dietary Evaluation Nutrition/Malnutrition Findings: Nutrition Notes Start: 08/07/20 09:03 Freq: Status: Active Protocol: Document 08/11/20 12:42 (Rec: 08/11/20 12:45 [id number]) Nutrition Notes Initial or Follow up Reassessment Current Diagnosis Hypertension,Stroke Other Pertinent Diagnosis Aphasia, Pancreatic Cancer, R side paralysis Current Diet Pureed with thins Labs/Tests K 3.2 Pertinent Medications D5NS at 75 ml/hr Height 5 ft 8 in Weight 71 kg [place] Body Weight (kg) 70.00 BMI 23.8 Weight Status Appropriate Subjective/Other Information FU for intakes. Pt diet advanced. Per RN, pt only taking bites of meals and coughing with ONS. Recommend speech eval follow up. Pt may need TF to meet needs. Percent of energy/protein needs met: Negligible Burn Absent Trauma Absent Current % PO Negligible Minimum of two criteria No physical signs of malnutrition #1 Nutrition Diagnosis Inadequate oral intake As Evidenced by Signs and Symptoms pt eating bites of meals Diagnosis Progress(for reassessment Continues documentation) Is patient on ventilator? 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
[2020-08-12] MEDS: FAMOTIDINE 20 MG TAB PO SCH ×2 (09:35→22:07)
[2020-08-12] MEDS: ASPIRIN 300 MG RECT SUPP PR SCH (09:35)
[2020-08-12] MEDS: amLODIPine 10 MG TAB PO SCH (09:35)
--- NOTE | 2020-08-12 12:08 | Gastroenterology Progress Note ---
Assessment and Plan oropharyngeal dysphagia - poor/minimal po intake. discussed with pt's son Willie over the phone (number is [phone]) who agrees/consent for egd/peg tube. will plan for egd/peg tomorrow, npo at midnight. Subjective Date of service: 08/12/20 Principal diagnosis: CVA Interval history: pt with poor po intake/refused to eat breakfast this morning per pt's nurse. Objective - Exam Narrative Exam: gen: awake, expressive aphasia abd: soft, nt, nd - Constitutional Vitals: Temp Pulse Resp BP Pulse Ox 97.5 F L 70 18 175/81 97 08/12/20 07:56 08/12/20 08:00 08/12/20 07:56 08/12/20 07:56 08/12/20 07:56 - Labs CBC & Chem 7: 08/12/20 05:22 08/12/20 05:22 Labs: Laboratory Results - last 24 hr 08/11/20 08/11/20 08/11/20 07:40 11:58 15:48 WBC RBC Hgb Hct MCV MCH MCHC RDW Plt Count Lymph % (Auto) Hall % (Auto) Eos % (Auto) Baso % (Auto) Lymph # (Auto) Hall # (Auto) Eos # (Auto) Baso # (Auto) Seg Neutrophils % Seg Neutrophils # Sodium Potassium Chloride Carbon Dioxide Anion Gap BUN Creatinine Estimated GFR BUN/Creatinine Ratio Glucose POC Glucose 91 105 100 Calcium Total Bilirubin AST ALT Alkaline Phosphatase Total Protein Albumin Albumin/Globulin Ratio 08/12/20 08/12/20 08/12/20 00:20 05:22 05:22 WBC 7.3 RBC 4.03 Hgb 12.0 Hct 34.1 L MCV 85 MCH 30 MCHC 35 H RDW 14.0 Plt Count 246 Lymph % (Auto) 26.9 Hall % (Auto) 9.6 H Eos % (Auto) 1.1 Baso % (Auto) 0.5 Lymph # (Auto) 2.0 Hall # (Auto) 0.7 Eos # (Auto) 0.1 Baso # (Auto) 0.0 Seg Neutrophils % 61.9 Seg Neutrophils # 4.5 Sodium 142 Potassium 3.0 L Chloride 108.8 H Carbon Dioxide 22 Anion Gap 14 BUN 8 L Creatinine 0.4 L Estimated GFR > 60 BUN/Creatinine Ratio 20 Glucose 104 H POC Glucose 96 Calcium 8.5 Total Bilirubin 0.30 AST 18 ALT 15 Alkaline Phosphatase 98 Total Protein 6.4 Albumin 3.6 L Albumin/Globulin Ratio 1.3 08/12/20 06:06 WBC RBC Hgb Hct MCV MCH MCHC RDW Plt Count Lymph % (Auto) Hall % (Auto) Eos % (Auto) Baso % (Auto) Lymph # (Auto) Hall # (Auto) Eos # (Auto) Baso # (Auto) Seg Neutrophils % Seg Neutrophils # Sodium Potassium Chloride Carbon Dioxide Anion Gap BUN Creatinine Estimated GFR BUN/Creatinine Ratio Glucose POC Glucose 91 Calcium Total Bilirubin AST ALT Alkaline Phosphatase Total Protein Albumin Albumin/Globulin Ratio
[2020-08-12] MEDS: D5W/0.9% NACL 1,000 ML IV SCH (15:06)
[2020-08-13] MEDS: D5W/0.9% NACL 1,000 ML IV SCH (05:55)
[2020-08-13 06:04] LABS: Blood Urea Nitrogen 7 mg/dL (9-20); Calcium 8.5 mg/dL (8.4-10.2); Hemolysis Index 12
[2020-08-13 06:07] LABS: BUN/Creatinine Ratio 14
[2020-08-13] MEDS ORDERED: ceFAZolin/Water 2 GM/20 ML 2 GM/20 ML SYRINGE IV NR (07:00)
[2020-08-13] MEDS ORDERED: SODIUM CHLORIDE 0.9% 1000 ML 1,000 ML IV SCH (07:00)
--- NOTE | 2020-08-13 09:13 | Progress Note ---
Assessment and Plan Assessment and plan: 70-year-old male with past medical history of hypertension and pancreatic cancer who presents with right-sided paralysis and mute aphasia. Family members called 911 for wellness check. Family member had not heard from patient since last night. Police officers gained entry into the home. Patient was discovered on the floor. EMS arrived. Patient was discovered with severe aphasia and right-sided hemiparesis. No previous history of stroke according to family members report to EMS. Patient is unable to give history due to severe aphasia. Patient is mute. 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 No hemorrhage or mass-effect are seen at MR may be useful Acute CVA MRI brain shows a large left MCA stroke CTA head and neck shows occlusion of the left MCA. Neurology evaluation appreciated Echocardiogram negative for thrombus Continue cardiac monitoring on telemetry Hypertensive emergency Pancreatic cancer Stable. Patient will follow up with oncology as outpatient Dysphagia Failed swallow evaluation DVT ppx Lovenox 08/08/2020. Continue aspirin, Plavix and statins. Continue antihypertensive medications via NG tube. Patient with failed swallow evaluation. However, NG tube unable to be advanced. Consider replacing NG tube under fluoroscopy. Continue speech therapy evaluation. PT/OT evaluation 08/09. Speech therapy cleared patient for pured diet. Continue PT/OT/ST. Continue CVA pathway with aspirin and Lipitor. Echocardiogram reveals EF of 55 to 60% with no thrombus. Physical therapy recommends acute rehab. Awaiting placement. 08/10. Patient exhibits severe aphasia affecting comprehension and verbal expressive skills. Speech therapy cleared patient for pured diet. Continue PT/OT/ST. Continue CVA pathway with aspirin and Lipitor. Echocardiogram reveals EF of 55 to 60% with no thrombus. Physical therapy recommends acute rehab. Awaiting placement. 08/11. Patient exhibits severe aphasia affecting comprehension and verbal expressive skills. Speech therapy cleared patient for pured diet. However, unsure if patient has adequate caloric intake. Reconsult dietitian for further evaluation. If patient has insufficient nutrition, we will plan for PEG placement. I discussed with GI on yesterday. Continue PT/OT/ST. Continue CVA pathway with aspirin and Lipitor. Echocardiogram reveals EF of 55 to 60% with no thrombus. Physical therapy recommends acute rehab. Awaiting placement. 08/12; I have seen and evaluated this morning. He only ate a bite from his breakfast. His nutrition intake is inadequate and I have discussed with GI and patient will have PEG tube placement tomorrow. After that he is pending placement. 08/13/2020; patient will have tube placement today. Patient has hypokalemia and will replete. Patient need placement History Interval history: Patient was seen and evaluated this morning Patient has aphasia, left-sided hemiplegia His caloric intake is inadequate Hospitalist Physical - Physical exam Narrative exam: Not in cardiopulmonary distress. The patient appeared well nourished and normally developed. Vital signs as documented. Head exam is unremarkable. No scleral icterus . Neck is without jugular venous distension, thyromegaly, or carotid bruits. Lungs are clear to auscultation. Cardiac exam reveals regular rate and Rhythm. Abdominal exam reveals normal bowel sounds, nontender, no organomegaly. Extremities are nonedematous and both femoral and pedal pulses are normal. 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 - Constitutional Vitals: Temp Pulse Resp BP Pulse Ox 97.7 F 50 L 18 178/77 100 08/13/20 03:18 08/13/20 03:18 08/13/20 03:18 08/13/20 03:18 08/13/20 03:18 General appearance: Present: no acute distress, well-nourished HEART Score - HEART Score Troponin: Troponin T < 0.010 ng/mL (0.00-0.029) 08/04/20 21:54 Results - Labs CBC & Chem 7: 08/12/20 05:22 08/13/20 05:06 Labs: Laboratory Last Values WBC 7.3 K/mm3 (4.5-11.0) 08/12/20 05:22 RBC 4.03 M/mm3 (3.65-5.03) 08/12/20 05:22 Hgb 12.0 gm/dl (11.8-15.2) 08/12/20 05:22 Hct 34.1 % (35.5-45.6) L 08/12/20 05:22 MCV 85 fl (84-94) 08/12/20 05:22 MCH 30 pg (28-32) 08/12/20 05:22 MCHC 35 % (32-34) H 08/12/20 05:22 RDW 14.0 % (13.2-15.2) 08/12/20 05:22 Plt Count 246 K/mm3 (140-440) 08/12/20 05:22 Lymph % (Auto) 26.9 % (13.4-35.0) 08/12/20 05:22 Weber % (Auto) 9.6 % (0.0-7.3) H 08/12/20 05:22 Eos % (Auto) 1.1 % (0.0-4.3) 08/12/20 05:22 Baso % (Auto) 0.5 % (0.0-1.8) 08/12/20 05:22 Lymph # (Auto) 2.0 K/mm3 (1.2-5.4) 08/12/20 05:22 Weber # (Auto) 0.7 K/mm3 (0.0-0.8) 08/12/20 05:22 Eos # (Auto) 0.1 K/mm3 (0.0-0.4) 08/12/20 05:22 Baso # (Auto) 0.0 K/mm3 (0.0-0.1) 08/12/20 05:22 Seg Neutrophils % 61.9 % (40.0-70.0) 08/12/20 05:22 Seg Neutrophils # 4.5 K/mm3 (1.8-7.7) 08/12/20 05:22 PT 14.5 Sec. (12.2-14.9) 08/04/20 21:54 INR 1.15 (0.87-1.13) H 08/04/20 21:54 APTT 26.1 Sec. (24.2-36.6) 08/04/20 21:54 Sodium 140 mmol/L (137-145) 08/13/20 05:06 Potassium 3.3 mmol/L (3.6-5.0) L 08/13/20 05:06 Chloride 108.4 mmol/L (98-107) H 08/13/20 05:06 Carbon Dioxide 21 mmol/L (22-30) L 08/13/20 05:06 Anion Gap 14 mmol/L 08/13/20 05:06 BUN 7 mg/dL (9-20) L 08/13/20 05:06 Creatinine 0.5 mg/dL (0.8-1.3) L 08/13/20 05:06 Estimated GFR > 60 ml/min 08/13/20 05:06 BUN/Creatinine Ratio 14 % 08/13/20 05:06 Glucose 96 mg/dL (75-100) 08/13/20 05:06 POC Glucose 110 mg/dL (70-105) H 08/13/20 05:12 Calcium 8.5 mg/dL (8.4-10.2) 08/13/20 05:06 Magnesium 2.10 mg/dL (1.7-2.3) 08/12/20 05:22 Total Bilirubin 0.30 mg/dL (0.1-1.2) 08/12/20 05:22 AST 18 units/L (5-40) 08/12/20 05:22 ALT 15 units/L (7-56) 08/12/20 05:22 Alkaline Phosphatase 98 units/L (35-129) 08/12/20 05:22 Troponin T < 0.010 ng/mL (0.00-0.029) 08/04/20 21:54 Total Protein 6.4 g/dL (6.3-8.2) 08/12/20 05:22 Albumin 3.6 g/dL (3.9-5) L 08/12/20 05:22 Albumin/Globulin Ratio 1.3 % 08/12/20 05:22 Triglycerides 102 mg/dL (2-149) 08/05/20 05:23 Cholesterol 253 mg/dL (50-199) H 08/05/20 05:23 LDL Cholesterol Direct 190 mg/dL (50-130) H 08/05/20 05:23 HDL Cholesterol 47 mg/dL (40-59) 08/05/20 05:23 Cholesterol/HDL Ratio 5.38 % 08/05/20 05:23 Urine Color Yellow (Yellow) 08/04/20 21:59 Urine Turbidity Slightly-cloudy (Clear) 08/04/20 21:59 Urine pH 7.0 (5.0-7.0) 08/04/20 21:59 Ur Specific [place] 1.015 (1.003-1.030) 08/04/20 21:59 Urine Protein <15 mg/dl mg/dL (Negative) 08/04/20 21:59 Urine Glucose (UA) 150 mg/dL (Negative) 08/04/20 21:59 Urine Ketones Tr mg/dL (Negative) 08/04/20 21:59 Urine Blood Sm (Negative) 08/04/20 21:59 Urine Nitrite Neg (Negative) 08/04/20 21:59 Urine Bilirubin Neg (Negative) 08/04/20 21:59 Urine Urobilinogen < 2.0 mg/dL (<2.0) 08/04/20 21:59 Ur Leukocyte Esterase Neg (Negative) 08/04/20 21:59 Urine WBC (Auto) 1.0 /HPF (0.0-6.0) 08/04/20 21:59 Urine RBC (Auto) 3.0 /HPF (0.0-6.0) 08/04/20 21:59 U Epithel Cells (Auto) < 1.0 /HPF (0-13.0) 08/04/20 21:59 Urine Mucus Few /HPF 08/04/20 21:59 Urine Opiates Screen Negative 08/04/20 21:59 Urine Methadone Screen Negative 08/04/20 21:59 Ur Barbiturates Screen Negative 08/04/20 21:59 Ur Phencyclidine Scrn Negative 08/04/20 21:59 Ur Amphetamines Screen Negative 08/04/20 21:59 U Benzodiazepines Scrn Negative 08/04/20 21:59 Urine Cocaine Screen Negative 08/04/20 21:59 U Marijuana (THC) Screen Negative 08/04/20 21:59 Drugs of Abuse Note Disclamer 08/04/20 21:59 Plasma/Serum Alcohol < 0.01 % (0-0.07) 08/04/20 21:54 Coronavirus (PCR) Negative (Negative) 08/07/20 Unknown Amaya/IV: Voiding Method Condom Catheter Active Medications - Current Medications Current Medications: Generic Name Dose Route Start Last Admin Trade Name Freq PRN Reason Stop Dose Admin Acetaminophen 650 mg 08/04/20 23:45 08/10/20 20:59 Acetaminophen 325 Mg Tab PO 650 mg Q4H PRN Administration Pain MILD(1-3)/Fever >100.5/SILVER Albuterol 2.5 mg 08/04/20 23:45 Albuterol 2.5 Mg/3 Ml Nebu IH Q4HRT PRN Shortness Of Breath Amlodipine Besylate 10 mg 08/06/20 14:00 08/12/20 09:35 Amlodipine 10 Mg Tab PO 10 mg QDAY JACOB Administration Lipase/Protease/Amylase 1 each 08/07/20 09:18 Lipase 10,500/Protease 25,000/Amylase 43,750 (Units) Dr Harrington FEEDTUBE PRN PRN For Clogged Feeding Tube Aspirin 300 mg 08/05/20 22:00 08/12/20 09:35 Aspirin 300 Mg Rect Supp CA 300 mg QDAY JACOB Administration Atorvastatin Calcium 80 mg 08/05/20 22:00 08/12/20 22:07 Atorvastatin 40 Mg Tab PO 80 mg QHS JACOB Administration Famotidine 20 mg 08/09/20 22:00 08/12/20 22:07 Famotidine 20 Mg Tab PO 20 mg BID JACOB Administration Hydralazine HCl 10 mg 08/04/20 23:49 08/12/20 06:52 Hydralazine 20 Mg/1 Ml Inj IV 10 mg Q6H PRN Administration Hypertension Dextrose/Sodium Chloride 1,000 mls @ 60 mls/hr 08/04/20 23:45 08/13/20 05:55 D5ns IV 75 mls/hr DIRECT JACOB Administration Sodium Chloride 1,000 mls @ 50 mls/hr 08/13/20 07:00 Nacl 0.9% 1000 Ml IV DIRECT JACOB Cefazolin Sodium 2 gm in 20 mls @ 80 mls/hr 08/13/20 07:00 Ancef/Sterile Water 2 Gm/20 Ml IV 08/13/20 23:59 PREOP NR Protocol Ondansetron HCl 4 mg 08/04/20 23:45 08/10/20 13:46 Ondansetron 4 Mg/2 Ml Inj IV 4 mg Q8H PRN Administration Nausea And Vomiting Potassium Chloride 40 meq 08/13/20 09:11 Potassium Chloride Er 20 Meq Tab PO 08/13/20 09:12 ONCE ONE Simple Syrup 15 ml 08/07/20 09:18 Simple Syrup 15 Ml FEEDTUBE PRN PRN Hypoglycemia Simple Syrup 30 ml 08/07/20 09:18 Simple Syrup 15 Ml FEEDTUBE PRN PRN Hypoglycemia Sodium Bicarbonate 325 mg 08/07/20 09:18 Sodium Bicarbonate 325 Mg Tab FEEDTUBE PRN PRN For Clogged Feeding Tube Sodium Chloride 10 ml 08/05/20 10:00 08/12/20 22:07 Sodium Chloride 0.9% 10 Ml Flush Syringe IV 10 ml BID JACOB Administration Sodium Chloride 10 ml 08/04/20 23:45 Sodium Chloride 0.9% 10 Ml Flush Syringe IV PRN PRN LINE FLUSH Nutrition/Malnutrition Assess - Dietary Evaluation Nutrition/Malnutrition Findings: Nutrition Notes Start: 08/07/20 09:03 Freq: Status: Active Protocol: Document 08/11/20 12:42 (Rec: 08/11/20 12:45 [id number]) Nutrition Notes Initial or Follow up Reassessment Current Diagnosis Hypertension,Stroke Other Pertinent Diagnosis Aphasia, Pancreatic Cancer, R side paralysis Current Diet Pureed with thins Labs/Tests K 3.2 Pertinent Medications D5NS at 75 ml/hr Height 5 ft 8 in Weight 71 kg [place] Body Weight (kg) 70.00 BMI 23.8 Weight Status Appropriate Subjective/Other Information FU for intakes. Pt diet advanced. Per RN, pt only taking bites of meals and coughing with ONS. Recommend speech eval follow up. Pt may need TF to meet needs. Percent of energy/protein needs met: Negligible Burn Absent Trauma Absent Current % PO Negligible Minimum of two criteria No physical signs of malnutrition #1 Nutrition Diagnosis Inadequate oral intake As Evidenced by Signs and Symptoms pt eating bites of meals Diagnosis Progress(for reassessment Continues documentation) Is patient on ventilator? No Is Patient Ambulatory and/or Out of Bed No REE-([facility]-confined to bed) [phone] Calculation Used for Recommendations [facility] Additional Notes Protein:70-84 g (1-1.2 g/kg) Fluid: 1 ml/kcal Nutrition Intervention Change Diet Order: Continue per EXTRACTOR FILLER Add Supplement/Snack (indicate name/kcal Nepro BID /protein ) Provides kCal: 850 Provides Protein (gm) 38 Goal #1 Pt meets at least 75% of estimated energy/protein needs via PO and ONS intakes Follow-Up By: 08/13/20 Additional Comments FU for intakes and ONS tolerance
[2020-08-13] MEDS ORDERED: WATER FOR IRRIG STERILE 1,000 ML BOTTLE ONE (09:21)
--- NOTE | 2020-08-13 09:25 | Anesthesia Day of Surgery ---
Anesthesia Day of Surgery - Day of Surgery Patient Examined: Yes Patient H&P Reviewed: Yes Patient is NPO: Yes
[2020-08-13] MEDS ORDERED: LIDOCAINE MPF (2%) 20 MG/1 ML VIAL 5 ML ONE (09:29)
[2020-08-13] MEDS ORDERED: propofoL 200 MG/20 ML VIAL IV ONE (09:30)
[2020-08-13] MEDS ORDERED: fentaNYL 100 MCG/2 ML INJ ONE (09:30)
--- NOTE | 2020-08-13 09:31 | Anesthesia Consultation ---
Anesthesia Consult and Med Hx Date of service: 08/13/20 - Airway Anesthetic Teeth Evaluation: Good (Many missing) ROM Head & Neck: Adequate Mental/Hyoid Distance: Adequate Mallampati Class: Class II Intubation Access Assessment: Good - Pre-Operative Health Status ASA Pre-Surgery Classification: ASA4 Proposed Anesthetic Plan: MAC - Cardiovascular System Hx Hypertension: Yes (Echocardiogram negative for thrombus) Hx Pacemaker: No Hx Internal Defibrillator: No - Central Nervous System CVA: Yes (Acute CVA-right hemiparesis, aphasia) - Other Systems Hx Cancer: Yes (Pancreas)
[2020-08-13] MEDS ORDERED: ceFAZolin/STERILE WATER 2 GM/20 ML SYRINGE IV ONE (09:35)
--- NOTE | 2020-08-13 09:49 | Post Operative Note ---
Date of procedure: 08/13/20 Pre-op diagnosis: oropharyngeal dysphagia Post-op diagnosis: same Findings: mild duodenitis in first portion of duodenum successful peg tube placement Procedure: EGD with peg tube placement Anesthesia: MAC Surgeon: CATHY WRAY Estimated blood loss: minimal Pathology: none Condition: stable Disposition: floor
--- NOTE | 2020-08-13 09:56 | Operative Report ---
Operative Report Operative Report: Esophagogastroduodenoscopy Procedure Note with PEG tube placement Date of procedure: 08/13/2020 Endoscopist: Reid Duarte Pre-op diagnosis/indication: Oropharyngeal dysphagia Post-op diagnosis: Successful PEG tube placement MEDICATIONS: MAC, ancef 2 grams COMPLICATIONS: No immediate complications ESTIMATED BLOOD LOSS: Minimal DESCRIPTION OF PROCEDURE: After consent was obtained from the patient's family member (son and daughter), the patient was placed in the supine position. The olympus endoscope was inserted into the patient's mouth under direct vision and advanced to the 2nd portion of the duodenum without difficulty. The patient tolerated the procedure well. The views of the mucosa were good. The patient's vital signs were monitored continuously throughout the procedure. The stomach was transilluminated and an optimal position for the PEG tube was identified using the single poke method. The skin was infiltrated with local lidocaine, followed by a small incision. The needle and sheath were inserted through the abdomen into the stomach under direct visualization. The needle was removed and a guidewire was inserted through the sheath. The guidewire was grasped from above with a snare. It was removed completely and the 20 Fr PEG tube was secured to the guidewire. The guidewire and PEG tube were then pulled through the mouth and esophagus and snug to the abdominal wall. The endoscope was re-inserted which showed good positioning of the internal bumper. The ext ernal bumper is at 3 cm. FINDINGS: The esophagus appeared normal. The stomach appeared normal. Successful PEG tube placement as above. Mild erythematous mucosa in first portion of the duodenum. Otherwise, the duodenum appeared normal. IMPRESSION: 1. Mild duodenitis. 2. Successful PEG tube placement as above RECOMMENDATIONS: -can use PEG tube for medications after 2 hours, and for tube feedings after 6 hours if no new symptoms. consult nutrition regarding tube feeding recommendations. Post-PEG care daily. will follow-up tomorrow for post-peg check
[2020-08-13] MEDS: ASPIRIN 300 MG RECT SUPP PR SCH (10:00)
[2020-08-13] MEDS ORDERED: POTASSIUM CHLORIDE 20 MEQ PACKET PO ONE (11:00)
[2020-08-13] MEDS: amLODIPine 10 MG TAB PO SCH (12:57)
[2020-08-13] MEDS: FAMOTIDINE 20 MG TAB PO SCH ×2 (12:57→22:28)
--- NOTE | 2020-08-13 16:32 | Post Anesthesia Evaluation ---
- Post Anesthesia Evaluation Patient Participated: Yes Airway Patent: Yes Stable Respiratory Function: Yes Nausea/Vomiting: No Temp > 96.8F: Yes Pain Manageable: Yes Adequeate Hydration: Yes Anesthesia Complications: No Block Receding Appropriately: Not Applicable Patient on Ventilator: No
[2020-08-13] MEDS: ACETAMINOPHEN 325 MG TAB PO PRN (20:02)
[2020-08-14 08:02] LABS: Blood Urea Nitrogen 10 mg/dL (9-20); Calcium 8.5 mg/dL (8.4-10.2); Hemolysis Index 0
--- NOTE | 2020-08-14 08:06 | Progress Note ---
Assessment and Plan Assessment and plan: 70-year-old male with past medical history of hypertension and pancreatic cancer who presents with right-sided paralysis and mute aphasia. Family members called 911 for wellness check. Family member had not heard from patient since last night. Police officers gained entry into the home. Patient was discovered on the floor. EMS arrived. Patient was discovered with severe aphasia and right-sided hemiparesis. No previous history of stroke according to family members report to EMS. Patient is unable to give history due to severe aphasia. Patient is mute. Cardiovascular Or Nurse reports normal blood glucose In the emergency room CT scan of the head showed moderate ischemic type changes are seen bilaterally better worse on the left these include some age indeterminate areas in the deep left brain and mildly on the left posterior temporal cortex which could include acute or subacute areas of infarction. No hemorrhage or mass-effect are seen at MR may be useful Acute CVA MRI brain shows a large left MCA stroke CTA head and neck shows occlusion of the left MCA. Neurology evaluation appreciated Echocardiogram negative for thrombus Continue cardiac monitoring on telemetry Hypertensive emergency Pancreatic cancer Stable. Patient will follow up with oncology as outpatient Dysphagia Failed swallow evaluation DVT ppx Lovenox 08/08/2020. Continue aspirin, Plavix and statins. Continue antihypertensive medications via NG tube. Patient with failed swallow evaluation. However, NG tube unable to be advanced. Consider replacing NG tube under fluoroscopy. Continue speech therapy evaluation. PT/OT evaluation 08/09. Speech therapy cleared patient for pured diet. Continue PT/OT/ST. Continue CVA pathway with aspirin and Lipitor. Echocardiogram reveals EF of 55 to 60% with no thrombus. Physical therapy recommends acute rehab. Awaiting placement. 08/10. Patient exhibits severe aphasia affecting comprehension and verbal expressive skills. Speech therapy cleared patient for pured diet. Continue PT/OT/ST. Continue CVA pathway with aspirin and Lipitor. Echocardiogram reveals EF of 55 to 60% with no thrombus. Physical therapy recommends acute rehab. Awaiting placement. 08/11. Patient exhibits severe aphasia affecting comprehension and verbal expressive skills. Speech therapy cleared patient for pured diet. However, unsure if patient has adequate caloric intake. Reconsult dietitian for further evaluation. If patient has insufficient nutrition, we will plan for PEG placement. I discussed with GI on yesterday. Continue PT/OT/ST. Continue CVA pathway with aspirin and Lipitor. Echocardiogram reveals EF of 55 to 60% with no thrombus. Physical therapy recommends acute rehab. Awaiting placement. 08/12; I have seen and evaluated this morning. He only ate a bite from his breakfast. His nutrition intake is inadequate and I have discussed with GI and patient will have PEG tube placement tomorrow. After that he is pending placement. 08/13/2020; patient will have tube placement today. Patient has hypokalemia and will replete. Patient need placement. 08/14/2020; patient is on PEG tube placement. Replete hypokalemia. Patient started on PEG tube feeding, Per nutrition patient was started on 20ml/hr and will be in target in the next 16hrs. Patient has authorization and will be discharged tomorrow. History Interval history: Patient was seen and evaluated this morning Patient has aphasia, left-sided hemiplegia Status post PEG tube placement Hospitalist Physical - Physical exam Narrative exam: Not in cardiopulmonary distress. The patient appeared well nourished and normally developed. Vital signs as documented. Head exam is unremarkable. No scleral icterus . Neck is without jugular venous distension, thyromegaly, or carotid bruits. Lungs are clear to auscultation. Cardiac exam reveals regular rate and Rhythm. Abdominal exam reveals normal bowel sounds, nontender, no organomegaly. Extremities are nonedematous and both femoral and pedal pulses are normal. 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 - Constitutional Vitals: Temp Pulse Resp BP Pulse Ox 98.0 F 88 17 161/95 98 08/14/20 03:04 08/14/20 08:00 08/14/20 08:00 08/14/20 03:04 08/14/20 08:00 General appearance: Present: no acute distress, well-nourished HEART Score - HEART Score Troponin: Troponin T < 0.010 ng/mL (0.00-0.029) 08/04/20 21:54 Results - Labs CBC & Chem 7: 08/12/20 05:22 08/14/20 07:13 Labs: Laboratory Last Values WBC 7.3 K/mm3 (4.5-11.0) 08/12/20 05:22 RBC 4.03 M/mm3 (3.65-5.03) 08/12/20 05:22 Hgb 12.0 gm/dl (11.8-15.2) 08/12/20 05:22 Hct 34.1 % (35.5-45.6) L 08/12/20 05:22 MCV 85 fl (84-94) 08/12/20 05:22 MCH 30 pg (28-32) 08/12/20 05:22 MCHC 35 % (32-34) H 08/12/20 05:22 RDW 14.0 % (13.2-15.2) 08/12/20 05:22 Plt Count 246 K/mm3 (140-440) 08/12/20 05:22 Lymph % (Auto) 26.9 % (13.4-35.0) 08/12/20 05:22 [place] % (Auto) 9.6 % (0.0-7.3) H 08/12/20 05:22 Eos % (Auto) 1.1 % (0.0-4.3) 08/12/20 05:22 Baso % (Auto) 0.5 % (0.0-1.8) 08/12/20 05:22 Lymph # (Auto) 2.0 K/mm3 (1.2-5.4) 08/12/20 05:22 [place] # (Auto) 0.7 K/mm3 (0.0-0.8) 08/12/20 05:22 Eos # (Auto) 0.1 K/mm3 (0.0-0.4) 08/12/20 05:22 Baso # (Auto) 0.0 K/mm3 (0.0-0.1) 08/12/20 05:22 Seg Neutrophils % 61.9 % (40.0-70.0) 08/12/20 05:22 Seg Neutrophils # 4.5 K/mm3 (1.8-7.7) 08/12/20 05:22 PT 14.5 Sec. (12.2-14.9) 08/04/20 21:54 INR 1.15 (0.87-1.13) H 08/04/20 21:54 APTT 26.1 Sec. (24.2-36.6) 08/04/20 21:54 Sodium 140 mmol/L (137-145) 08/14/20 07:13 Potassium 3.2 mmol/L (3.6-5.0) L 08/14/20 07:13 Chloride 106.2 mmol/L (98-107) 08/14/20 07:13 Carbon Dioxide 21 mmol/L (22-30) L 08/14/20 07:13 Anion Gap 16 mmol/L 08/14/20 07:13 BUN 10 mg/dL (9-20) 08/14/20 07:13 Creatinine 0.5 mg/dL (0.8-1.3) L 08/13/20 05:06 Estimated GFR > 60 ml/min 08/13/20 05:06 BUN/Creatinine Ratio 14 % 08/13/20 05:06 Glucose 101 mg/dL (75-100) H 08/14/20 07:13 POC Glucose 102 mg/dL (70-105) 08/14/20 05:21 Calcium 8.5 mg/dL (8.4-10.2) 08/14/20 07:13 Magnesium 2.10 mg/dL (1.7-2.3) 08/12/20 05:22 Total Bilirubin 0.30 mg/dL (0.1-1.2) 08/12/20 05:22 AST 18 units/L (5-40) 08/12/20 05:22 ALT 15 units/L (7-56) 08/12/20 05:22 Alkaline Phosphatase 98 units/L (35-129) 08/12/20 05:22 Troponin T < 0.010 ng/mL (0.00-0.029) 08/04/20 21:54 Total Protein 6.4 g/dL (6.3-8.2) 08/12/20 05:22 Albumin 3.6 g/dL (3.9-5) L 08/12/20 05:22 Albumin/Globulin Ratio 1.3 % 08/12/20 05:22 Triglycerides 102 mg/dL (2-149) 08/05/20 05:23 Cholesterol 253 mg/dL (50-199) H 08/05/20 05:23 LDL Cholesterol Direct 190 mg/dL (50-130) H 08/05/20 05:23 HDL Cholesterol 47 mg/dL (40-59) 08/05/20 05:23 Cholesterol/HDL Ratio 5.38 % 08/05/20 05:23 Urine Color Yellow (Yellow) 08/04/20 21:59 Urine Turbidity Slightly-cloudy (Clear) 08/04/20 21:59 Urine pH 7.0 (5.0-7.0) 08/04/20 21:59 Ur Specific [place] 1.015 (1.003-1.030) 08/04/20 21:59 Urine Protein <15 mg/dl mg/dL (Negative) 08/04/20 21:59 Urine Glucose (UA) 150 mg/dL (Negative) 08/04/20 21:59 Urine Ketones Tr mg/dL (Negative) 08/04/20 21:59 Urine Blood Sm (Negative) 08/04/20 21:59 Urine Nitrite Neg (Negative) 08/04/20 21:59 Urine Bilirubin Neg (Negative) 08/04/20 21:59 Urine Urobilinogen < 2.0 mg/dL (<2.0) 08/04/20 21:59 Ur Leukocyte Esterase Neg (Negative) 08/04/20 21:59 Urine WBC (Auto) 1.0 /HPF (0.0-6.0) 08/04/20 21:59 Urine RBC (Auto) 3.0 /HPF (0.0-6.0) 08/04/20 21:59 U Epithel Cells (Auto) < 1.0 /HPF (0-13.0) 08/04/20 21:59 Urine Mucus Few /HPF 08/04/20 21:59 Urine Opiates Screen Negative 08/04/20 21:59 Urine Methadone Screen Negative 08/04/20 21:59 Ur Barbiturates Screen Negative 08/04/20 21:59 Ur Phencyclidine Scrn Negative 08/04/20 21:59 Ur Amphetamines Screen Negative 08/04/20 21:59 U Benzodiazepines Scrn Negative 08/04/20 21:59 Urine Cocaine Screen Negative 08/04/20 21:59 U Marijuana (THC) Screen Negative 08/04/20 21:59 Drugs of Abuse Note Disclamer 08/04/20 21:59 Plasma/Serum Alcohol < 0.01 % (0-0.07) 08/04/20 21:54 Coronavirus (PCR) Negative (Negative) 08/07/20 Unknown Amaya/IV: Voiding Method Condom Catheter Active Medications - Current Medications Current Medications: Generic Name Dose Route Start Last Admin Trade Name Freq PRN Reason Stop Dose Admin Acetaminophen 650 mg 08/04/20 23:45 08/13/20 20:02 Acetaminophen 325 Mg Tab PO 650 mg Q4H PRN Administration Pain MILD(1-3)/Fever >100.5/SILVER Albuterol 2.5 mg 08/04/20 23:45 Albuterol 2.5 Mg/3 Ml Nebu IH Q4HRT PRN Shortness Of Breath Amlodipine Besylate 10 mg 08/06/20 14:00 08/13/20 12:57 Amlodipine 10 Mg Tab PO 10 mg QDAY JACOB Administration Lipase/Protease/Amylase 1 each 08/07/20 09:18 Lipase 10,500/Protease 25,000/Amylase 43,750 (Units) Dr Harrington FEEDTUBE PRN PRN For Clogged Feeding Tube Aspirin 300 mg 08/05/20 22:00 08/13/20 10:00 Aspirin 300 Mg Rect Supp W[place] Not Given QDAY JACOB Atorvastatin Calcium 80 mg 08/05/20 22:00 08/13/20 22:28 Atorvastatin 40 Mg Tab PO 80 mg QHS JACOB Administration Famotidine 20 mg 08/09/20 22:00 08/13/20 22:28 Famotidine 20 Mg Tab PO 20 mg BID JACOB Administration Hydralazine HCl 10 mg 08/04/20 23:49 08/12/20 06:52 Hydralazine 20 Mg/1 Ml Inj IV 10 mg Q6H PRN Administration Hypertension Dextrose/Sodium Chloride 1,000 mls @ 60 mls/hr 08/04/20 23:45 08/13/20 05:55 D5ns IV 75 mls/hr DIRECT JACOB Administration Sodium Chloride 1,000 mls @ 50 mls/hr 08/13/20 07:00 Nacl 0.9% 1000 Ml IV DIRECT JACOB Ondansetron HCl 4 mg 08/04/20 23:45 08/10/20 13:46 Ondansetron 4 Mg/2 Ml Inj IV 4 mg Q8H PRN Administration Nausea And Vomiting Potassium Chloride 40 meq 08/14/20 08:03 Potassium Chloride Er 20 Meq Tab PO 08/14/20 08:04 ONCE ONE Simple Syrup 15 ml 08/07/20 09:18 Simple Syrup 15 Ml FEEDTUBE PRN PRN Hypoglycemia Simple Syrup 30 ml 08/07/20 09:18 Simple Syrup 15 Ml FEEDTUBE PRN PRN Hypoglycemia Sodium Bicarbonate 325 mg 08/07/20 09:18 Sodium Bicarbonate 325 Mg Tab FEEDTUBE PRN PRN For Clogged Feeding Tube Sodium Chloride 10 ml 08/05/20 10:00 08/13/20 22:29 Sodium Chloride 0.9% 10 Ml Flush Syringe IV 10 ml BID JACOB Administration Sodium Chloride 10 ml 08/04/20 23:45 Sodium Chloride 0.9% 10 Ml Flush Syringe IV PRN PRN LINE FLUSH Nutrition/Malnutrition Assess - Dietary Evaluation Nutrition/Malnutrition Findings: Nutrition Notes Start: 08/07/20 09:03 Freq: Status: Active Protocol: Document 08/13/20 13:13 (Rec: 08/13/20 13:17 [id number]) Nutrition Notes Initial or Follow up Reassessment Current Diagnosis Hypertension,Stroke Other Pertinent Diagnosis Aphasia, Pancreatic Cancer, R side paralysis Current Diet NPO Labs/Tests K 3.3 Pertinent Medications D5NS at 75 ml/hr Height 5 ft 8 in Weight 68.9 kg [place] Body Weight (kg) 70.00 BMI 23.1 Weight Status Appropriate Subjective/Other Information FU for intakes and plan of care. Pt now with PEG. Percent of energy/protein needs met: Negligible Burn Absent Trauma Absent Current % PO Negligible Minimum of two criteria No Energy Intake (severe) < or equal to 50% Estimated Energy Requirement > or equal to 5 days #1 Nutrition Diagnosis Inadequate oral intake As Evidenced by Signs and Symptoms pt now with PEG Diagnosis Progress(for reassessment Continues documentation) Is patient on ventilator? No Is Patient Ambulatory and/or Out of Bed No REE-([facility]-confined to bed) [phone] Calculation Used for Recommendations [facility] Additional Notes Protein:70-84 g (1-1.2 g/kg) Fluid: 1 ml/kcal Nutrition Intervention Change Diet Order: Start TF when medically able Nutrition Support: Jevity 1.2 at 60 mL/hr Flush 100 mL q4h Kcal 1,728 Protein (gm) 80 Fluid (mL) 1,168 Add Supplement/Snack (indicate name/kcal D/c /protein ) Goal #1 Start TF Anticipated Discharge Needs: Jevity 1.2 at 60 ml/hr Flush 100 ml q4h Follow-Up By: 08/14/20 Additional Comments FU for TF consult
[2020-08-14 08:13] LABS: BUN/Creatinine Ratio 20
[2020-08-14] MEDS ORDERED: POTASSIUM CHLORIDE ER 20 MEQ TAB PO SCH (08:30)
[2020-08-14] MEDS: ASPIRIN 300 MG RECT SUPP PR SCH (09:04)
[2020-08-14] MEDS: amLODIPine 10 MG TAB PO SCH (09:05)
[2020-08-14] MEDS: FAMOTIDINE 20 MG TAB PO SCH ×2 (09:05→22:18)
--- NOTE | 2020-08-14 16:40 | Gastroenterology Progress Note ---
Assessment and Plan oropharyngeal dysphagia - s/p egd/peg 08/13, advance tube feeds as tolerated per nutrition recommendations. post peg care daily. will sign off, please call as needed. Subjective Date of service: 08/14/20 Principal diagnosis: CVA Interval history: no events overnight, tolerating tube feeds Objective - Exam Narrative Exam: Gen: nad abd: soft, nt, + peg tube site c/d/i, external bumper loosened at bedside - Constitutional Vitals: Temp Pulse Resp BP Pulse Ox 97.5 F L 79 18 165/85 98 08/14/20 11:03 08/14/20 11:03 08/14/20 11:03 08/14/20 11:03 08/14/20 11:03 - Labs CBC & Chem 7: 08/12/20 05:22 08/14/20 07:13 Labs: Laboratory Results - last 24 hr 08/13/20 08/14/20 08/14/20 23:32 05:21 07:13 Sodium 140 Potassium 3.2 L Chloride 106.2 Carbon Dioxide 21 L Anion Gap 16 BUN 10 Creatinine 0.5 L Estimated GFR > 60 BUN/Creatinine Ratio 20 Glucose 101 H POC Glucose 108 H 102 Calcium 8.5 08/14/20 08/14/20 11:00 16:16 Sodium Potassium Chloride Carbon Dioxide Anion Gap BUN Creatinine Estimated GFR BUN/Creatinine Ratio Glucose POC Glucose 110 H 100 Calcium
[2020-08-14] MEDS: ACETAMINOPHEN 325 MG TAB PO PRN (22:18)
[2020-08-15 06:27] LABS: Blood Urea Nitrogen 13 mg/dL (9-20); Calcium 8.8 mg/dL (8.4-10.2); Hemolysis Index 2
[2020-08-15 06:28] LABS: BUN/Creatinine Ratio 26
--- NOTE | 2020-08-15 08:06 | Discharge Summary ---
Providers - Providers Date of Admission: 08/04/20 23:17 Date of discharge: 08/15/20 Attending physician: HERVE DUBOIS MD 08/04/20 23:45 Consult to Physician [CONS] Routine Comment: Consulting Provider: DANIELLA FOURNIER Physician Instructions: Reason For Exam: Severe Occupational Therapy Evaluate and Treat [CONS] Routine Comment: Reason For Exam: Neuro deficits Physical Therapy Evaluation and Treat [CONS] Routine Comment: Reason For Exam: Neuro deficits 08/05/20 15:14 Speech Therapy Evaluation and Treat [CONS] Routine Reason For Exam: cva 08/05/20 16:35 Consult to PICC Line RN [CONS] Stat Reason For Exam: poor iv access please Type Line:: PICC 08/06/20 07:33 Consult to Physician [CONS] Routine Comment: Consulting Provider: DANIELLA FOURNIER Physician Instructions: Reason For Exam: cva 08/06/20 13:14 Consult to Dietitian/Nutrition [CONS] Routine Physician Instructions: Reason For Exam: Reason for Consult: Write/Manage Tube Feeding 08/07/20 10:17 Consult to Physician [CONS] Routine Comment: Consulting Provider: DANIELLA FOURNIER Physician Instructions: Reason For Exam: CVA. Evaluate CTA head 08/08/20 07:00 Consult to Physician [CONS] Routine Comment: Consulting Provider: ROSELIA HARVEY Physician Instructions: Reason For Exam: Recent CVA with dysphagia - Re: PEG tube 08/11/20 08:33 Consult to Dietitian/Nutrition [CONS] Routine Physician Instructions: check for adequate intake, calorie count Reason For Exam: Reason for Consult: Poor oral intake 08/14/20 08:48 Consult to Dietitian/Nutrition [CONS] Routine Physician Instructions: Reason For Exam: Reason for Consult: Write/Manage Tube Feeding Primary care physician: GRACE CARDOZO MD Hospitalization Reason for admission: CVA with right-sided hemiplegia, aphasia, status post PEG Condition: Fair Pertinent studies: MRI head Hospital course: History of present illness: 70-year-old male with past medical history of hypertension and pancreatic cancer who presents with right-sided paralysis and mute aphasia. Family members called 911 for wellness check. Family member had not heard from patient since last night. Police officers gained entry into the home. Patient was discovered on the floor. EMS arrived. Patient was discovered with severe aphasia and right-sided hemiparesis. No previous history of stroke according to family members report to EMS. Patient is unable to give history due to severe aphasia. Patient is mute. [employer] reports normal blood glucos In the emergency room CT scan of the head showed moderate ischemic type changes are seen bilaterally better worse on the left these include some age indeterminate areas in the deep left brain and mildly on the left posterior temporal cortex which could include acute or subacute areas of infarction. No hemorrhage or mass-effect are seen at MR may be useful Hospital course Acute CVA MRI brain shows a large left MCA stroke CTA head and neck shows occlusion of the left MCA. Neurology evaluation appreciated Echocardiogram negative for thrombus Continue cardiac monitoring on telemetry Hypertensive emergency Pancreatic cancer Stable. Patient will follow up with oncology as outpatient Dysphagia Failed swallow evaluation DVT ppx Lovenox 08/08/2020. Continue aspirin, Plavix and statins. Continue antihypertensive medications via NG tube. Patient with failed swallow evaluation. However, NG tube unable to be advanced. Consider replacing NG tube under fluoroscopy. Continue speech therapy evaluation. PT/OT evaluation 08/09. Speech therapy cleared patient for pured diet. Continue PT/OT/ST. Continue CVA pathway with aspirin and Lipitor. Echocardiogram reveals EF of 55 to 60% with no thrombus. Physical therapy recommends acute rehab. Awaiting placement. 08/10. Patient exhibits severe aphasia affecting comprehension and verbal expressive skills. Speech therapy cleared patient for pured diet. Continue PT/OT/ST. Continue CVA pathway with aspirin and Lipitor. Echocardiogram reveals EF of 55 to 60% with no thrombus. Physical therapy recommends acute rehab. Awaiting placement. 08/11. Patient exhibits severe aphasia affecting comprehension and verbal expressive skills. Speech therapy cleared patient for pured diet. However, unsure if patient has adequate caloric intake. Reconsult dietitian for further evaluation. If patient has insufficient nutrition, we will plan for PEG placement. I discussed with GI on yesterday. Continue PT/OT/ST. Continue CVA pathway with aspirin and Lipitor. Echocardiogram reveals EF of 55 to 60% with no thrombus. Physical therapy recommends acute rehab. Awaiting placement. 08/12; I have seen and evaluated this morning. He only ate a bite from his breakfast. His nutrition intake is inadequate and I have discussed with GI and patient will have PEG tube placement tomorrow. After that he is pending placement. 08/13/2020; patient will have tube placement today. Patient has hypokalemia and will replete. Patient need placement. 08/14/2020; patient is on PEG tube placement. Replete hypokalemia. Patient started on PEG tube feeding, Per nutrition patient was started on 20ml/hr and will be in target in the next 16hrs. Patient has authorization and will be discharged tomorrow. 08/15/2020; patient's PEG tube feeding is interrogated today. Patient tolerated well. And discharged to SNF with rehab facility. Patient's medications were reconciled at the time of discharge. Disposition: [id number] SNF W [facility] CERT Final Discharge Diagnosis (Prints w/discharge instructions): CVA with right- sided hemiplegia. Aphasia. Status post PEG - Discharge Diagnoses (1) Acute CVA (cerebrovascular accident) Status: Acute (2) Hypertensive emergency Status: Acute (3) Pancreatic cancer Status: Acute Core Measure Documentation - Palliative Care Palliative Care/ Comfort Measures: Not Applicable - Core Measures Any of the following diagnoses?: stroke - Stroke Discharge Requirements Statin for LDL = or >70 mg/dl on DC: Yes Anticoag for atrial fib/atrial flutter: Not Applicable Antithrombotic for ischemic stroke: Yes Exam - Physical Exam Narrative exam: Not in cardiopulmonary distress. The patient appeared well nourished and normally developed. Vital signs as documented. Head exam is unremarkable. No scleral icterus . Neck is without jugular venous distension, thyromegaly, or carotid bruits. Lungs are clear to auscultation. Cardiac exam reveals regular rate and Rhythm. Abdominal exam reveals normal bowel sounds, nontender, no organomegaly. Extremities are nonedematous and both femoral and pedal pulses are normal. 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 - Constitutional Vitals: Temp Pulse Resp BP Pulse Ox 97.7 F 60 20 159/68 97 08/15/20 04:55 08/15/20 04:55 08/15/20 04:55 08/15/20 04:55 08/15/20 04:55 Plan Activity: advance as tolerated Weight Bearing Status: Weight Bear as Tolerated Diet: per dietitian instruction Follow up with: CATHY WRAY MD [Staff Physician] - 7 Days DANIELLA FOURNIER MD [Staff Physician] - 7 Days PRIMARY CARE, [Referring] - 3-5 Days Prescriptions: AtorvaSTATin [Lipitor] 80 mg PO QHS #60 tablet Aspirin 325 mg PO DAILY #30 tablet
[2020-08-15] MEDS ORDERED: LISINOPRIL 40 MG TAB PO SCH (10:00)
[2020-08-15] MEDS ORDERED: TAMSULOSIN 0.4 MG CAP PO SCH (10:00)
[2020-08-15] MEDS: FAMOTIDINE 20 MG TAB PO SCH (12:30)
[2020-08-15] MEDS: amLODIPine 10 MG TAB PO SCH ×2 (12:32→12:38)
[2020-08-15] MEDS: ASPIRIN 300 MG RECT SUPP PR SCH (12:36)
[2020-08-15 12:37] VITALS: BP 148/75
== END 2020-08-15 14:02 | DRG 65 ==
LOC: ED 21:35 → 4A 23:17
PROVIDERS: ADMIT Hospitalist; ATTEND Internal Medicine
PROC: 0DH63UZ Insertion of Feeding Device into Stomach, Percutaneous Approach (ICD-10-PCS; principal; 2020-08-13)
DX: I63.9 Cerebral infarction, unspecified (principal); I16.1 Hypertensive emergency; C25.9 Malignant neoplasm of pancreas, unspecified; G81.91 Hemiplegia, unspecified affecting right dominant side; R13.10 Dysphagia, unspecified; R47.01 Aphasia; I10 Essential (primary) hypertension; R13.12 Dysphagia, oropharyngeal phase; Z20.822 Contact with and (suspected) exposure to COVID-19; Z79.82 Long term (current) use of aspirin
CPT/HCPCS: 36415; 70450; 70496; 70498; 70551; 71045; 74018; 80048; 80053; 80061; 80307; 80320; 81001; 82962; 83735; 84132; 84484; 85025; 85610; 85730; 93005; 93306; 94640; 96374; G0378; A9270-GY; G0480; J0360; J0690; J1650; J2405; J2704; J3010; J3480; J7040; J7042; Q9967; U0003